=== PATIENT | female | born 1940 | race Hispanic/Latino ===

== ENCOUNTER 2018-02-16 16:44 | Emergency (ER) | payer OTHER ==
--- OUTSIDE RECORDS SUMMARY | 2018-02-16 16:46 | XMS REPORT ---
:1940 Author Organization [employer] Care Team Providers Name Role Phone Cooper, Na Provider Role Unavailable Allergies, Adverse Reactions, Alerts Substance Reaction Event Type penicillin Info Not Available Drug Allergy Ultram Info Not Available Drug Allergy Iodine Info Not Available Drug Allergy Celebrex Info Not Available Drug Allergy Amoxicillin Info Not Available Drug Allergy Problems Problem Type Condition Code Onset Dates Condition Status Problem Gastroesophageal reflux disease K21.9 Active Problem Osteoporosis, unspecified M81.0 Active osteoporosis type, unspecified pathological fracture presence Problem Other osteoporosis M81.8 Active Problem Need for assistance due to unsteady R26.89 Active gait Assessment Osteoporosis, unspecified M81.0 Active osteoporosis type, unspecified pathological fracture presence Problem Constipation K59.00 Active Assessment Rheumatoid arthritis involving M05.79 Active multiple sites with positive rheumatoid factor Assessment 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 Active Problem Unsteady gait R26.81 Active Problem Bilateral edema of lower extremity R60.0 Active Problem Rheumatoid arthritis involving M05.79 Active multiple sites with positive rheumatoid factor Problem Mild memory disturbance R41.3 Active Problem 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 Active Assessment HTN (hypertension) I10 Active Assessment Bilateral edema of lower extremity R60.0 Active Assessment Hypothyroidism E03.9 Active Problem Rheumatoid arthritis M06.9 Active Problem Obesity E66.9 Active Problem HTN (hypertension) I10 Active Problem Allergic rhinitis, seasonal J30.2 Active Assessment Need for assistance due to unsteady R26.89 Active gait Problem Hypothyroidism E03.9 Active Problem Vitamin B 12 deficiency E53.8 Active Medications Medication Code Code Instructions Start End Status Dosage System Date Date Walker Basket [facility] 55856496839 - daily Dec 05, Active as 2018 directed Anabella [place] [facility] 09323254459 20 MG Orally Active 1 tablet Maximum twice a day at bedtime Strength Atenolol [facility] 02761594528 25 MG Orally Active 1 tablet Once a day Metformin HCl [facility] 82295521309 500 MG Orally Active 1 tablet once a day with meals Shower Chair ND 0 n/s n/s daily Dec 05, Mar 07, Active n/s [address] [facility] 07465757096 1 MG Active TAKE 1 TABLET BY MOUTH EVERY DAY Methotrexate [facility] 59788162537 2.5 MG Active TAKE 6 TABLETS BY MOUTH ONCE A WEEK Rollator walker [facility] 0 n/s daily Dec 05, Active as [address] Acid [facility] 53066177020 1 MG Orally Active 1 tablet Once a day Fosamax [facility] 59279555644 70 MG Orally Inactive [address] [facility] 48521921255 10-320 MG Active 1 tablet Besylate-Valsar Orally Once a craft day Methotrexate [facility] 95956131977 2.5 MG Orally Active 6 tablets once a week Soniab claw [facility] [id number] PRN Dec 05, Active as [address] [facility] 36352712428 75 MCG Orally Active 1 tablet Once a day on an empty stomach in the morning Results No Known Results Summary Purpose [employer]ClinicalWorks Submission
--- OUTSIDE RECORDS SUMMARY | 2018-02-16 16:46 | XMS REPORT ---
[...] Condition Code Onset Dates Condition Status Problem Allergic rhinitis, seasonal J30.2 Active Problem Gastroesophageal reflux disease K21.9 Active Problem Vitamin B 12 deficiency E53.8 Active Problem Bilateral edema of lower extremity R60.0 Active Assessment Rheumatoid arthritis involving M05.79 Active multiple sites with positive rheumatoid factor Problem Mild memory disturbance R41.3 Active Assessment Mild memory disturbance R41.3 Active Problem Constipation K59.00 Active Problem Osteoporosis, unspecified M81.0 Active osteoporosis type, unspecified pathological fracture presence Problem Other osteoporosis M81.8 Active Problem 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 Active Problem Rheumatoid arthritis involving M05.79 Active multiple sites with positive rheumatoid factor Assessment Hypothyroidism E03.9 Active Assessment Bilateral edema of lower extremity R60.0 Active Assessment 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 Active Assessment Osteoporosis, unspecified M81.0 Active osteoporosis type, unspecified pathological fracture presence Problem HTN (hypertension) I10 Active Problem Hypothyroidism E03.9 Active Assessment HTN (hypertension) I10 Active Problem Rheumatoid arthritis M06.9 Active Problem Obesity E66.9 Active Medications Medication Code Code Instructions Start End Status Dosage System Date Date Folic Acid [facility] 94934631244 1 MG Active TAKE 1 TABLET BY MOUTH EVERY DAY Fosamax [facility] 24478915101 70 MG Orally Inactive 1 tablet Folic Acid [facility] 92606318495 1 MG Orally Active 1 tablet Once a day Methotrexate [facility] 69525164710 2.5 MG Orally Active 6 tablets once a week Pepcid AC [facility] 75044512246 20 MG Orally Active 1 tablet Maximum twice a day at bedtime Strength Amlodipine [facility] 04698590139 10-320 MG Active 1 tablet Besylate-Valsar Orally Once a craft day Atenolol [facility] 70402602283 25 MG Orally Active 1 tablet Once a day Metformin HCl [facility] 19620801234 500 MG Orally Active 1 tablet once a day with meals Synthroid [facility] 97584052312 75 MCG Orally Active 1 tablet Once a day on an empty stomach in the morning Results No Known Results Summary Purpose [employer]Works Submission
--- OUTSIDE RECORDS SUMMARY | 2018-02-16 16:46 | XMS REPORT ---
:1940 Author Organization [employer] Care Team Providers Name Role Phone Cooper, Na Provider Role Unavailable Allergies No Known Allergies Problems Problem Type Condition Code Onset Dates Condition Status Problem Gastroesophageal reflux disease K21.9 Active Problem Osteoporosis, unspecified M81.0 Active osteoporosis type, unspecified pathological fracture presence Problem Other osteoporosis M81.8 Active Problem Need for assistance due to unsteady R26.89 Active gait Problem Constipation K59.00 Active Problem Unsteady gait R26.81 Active Problem Bilateral edema of lower extremity R60.0 Active Problem Rheumatoid arthritis involving M05.79 Active multiple sites with positive rheumatoid factor Problem Mild memory disturbance R41.3 Active Problem 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
--- OUTSIDE RECORDS SUMMARY | 2018-02-16 16:47 | XMS REPORT ---
[...] 12 deficiency E53.8 Active Medications Medication Code System Code Instructions Start Date End Date Status Dosage Diflucan [facility] [id number] 150 MG Orally Jan 22, Jan 24, Active 1 tablet take one now and 2017 2017 repeat other in one week Results No Known Results Summary Purpose [employer]ClinicalWorks Submission
[2018-02-16 17:59] LABS: Urine Blood NEGATIVE (NEG); Urine Glucose NEGATIVE (NEG); Urine Protein NEGATIVE (NEG)
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
--- NOTE | 2018-02-16 18:35 | RAD REPORT ---
EXAM DESCRIPTION: RAD - Hip Right 2 View - 02/16/2018 5:42 pm CLINICAL HISTORY: Right hip pain FINDINGS: No fracture or dislocation is seen. Right hip arthroplasty performed. Prosthesis is in good position without evidence of loosening. Bones are osteoporotic
--- NOTE | 2018-02-16 18:36 | RAD REPORT ---
EXAM DESCRIPTION: RAD - Knee Right 3 View - 02/16/2018 5:42 pm CLINICAL HISTORY: Right knee pain status post fall FINDINGS: A right knee arthroplasty performed. No evidence of loosening of the prosthesis. Bones are osteoporotic. No fracture or dislocation seen
[2018-02-16] MEDS ORDERED: NA CHLORIDE 0.9% 1,000 ML ONE (18:37)
[2018-02-16] MEDS ORDERED: FENTANYL CITR 100 MCG/2 ML ONE (18:37)
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
--- NOTE | 2018-02-16 19:16 | RAD REPORT ---
EXAM DESCRIPTION: Sallie Single View02/16/2018 6:54 pm CLINICAL HISTORY: Chest pain COMPARISON: 2010 FINDINGS: The lungs appear clear of acute infiltrate. The heart is normal size IMPRESSION: No acute abnormalities displayed
[2018-02-16 19:18] LABS: Protime INR 1.07
[2018-02-16 19:19] LABS: Absolute Lymphocytes (CBC) 2.7 K/uL (0.7-4.9); Absolute Monocytes 0.6 K/uL (0.1-1.3); Absolute Neutrophil 4.9 K/uL (1.8-8.0); Eosinophils % 1.7 % (0-4.4); Hematocrit 37.1 % (36.0-45.0); Lymphocytes % 32.2 % (15.3-44.8); MCH 29.5 pg (27.0-35.0); MCV 89.2 fL (80-100); MPV 10.1 fL (7.6-11.3); Monocytes % 7.4 % (3.3-12.3); RBC Red Blood Cell Count 4.17 M/uL (3.86-4.86)
[2018-02-16 19:23] LABS: Potassium 3.9 mmol/L (3.5-5.1)
[2018-02-16 20:53] VITALS: BP 139/68; TEMP 98; O2SAT 100
== END 2018-02-16 20:12 | disposition short-term general hospital (02) ==
LOC: ER 16:44
DX: M54.2 Cervicalgia (principal); V49.40XA Driver injured in collision with unspecified motor vehicles in traffic accident, initial encounter; I10 Essential (primary) hypertension; Z88.0 Allergy status to penicillin
CPT/HCPCS: 36415; 70450; 71045; 72125; 73502; 73562; 80048; 81003; 81025; 85025; 85610; 85730; 86850; 86900; 86901; 96361; 96374; 99285; J3010; J7030

== ENCOUNTER 2019-10-06 13:59 | Emergency (ER) | payer OTHER ==
[2019-10-06 15:17] LABS: Absolute Lymphocytes (CBC) 1.6 K/uL (0.7-4.9); Basophils % 0.8 % (0-1.3); Hematocrit 38.1 % (36.0-45.0); Lymphocytes % 19.5 % (15.3-44.8); MPV 10.1 fL (7.6-11.3); RBC Red Blood Cell Count 4.16 M/uL (3.86-4.86)
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
--- OUTSIDE RECORDS SUMMARY | 2019-10-06 15:19 | XMS REPORT ---
:1940 Author Organization [employer] Care Team Providers Name Role Phone Cooper, Na Provider Role Unavailable Allergies No Known Allergies Problems Problem Type Condition Code Onset Dates Condition Statu s Problem Other osteoporosis M81.8 Active Problem Rheumatoid arthritis involving M05.79 Active multiple sites with positive rheumatoid factor Problem Osteoporosis, unspecified M81.0 Ac tive osteoporosis type, unspecified pathological fracture presence Problem Need for assistance due to unsteady R26.89 Active gait Problem Unsteady gait R26.81 Active Problem Herpes zoster without complication B02.9 Active Problem Mild memory disturbance R41.3 Acti ve Problem 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 Active Problem Constipation K59.00 Active Problem Bilateral edema of lower extremity R60.0 Active Problem HTN (hypertension) I10 Active Problem Obesity E66.9 Active Problem Allergic rhinitis, seasonal J30.2 Active Problem Hypothyroidism E03.9 Active Problem Vitamin B 12 deficiency E53.8 Acti ve Problem Rheumatoid arthritis M06.9 Active Problem Gastroesophageal reflux disease K21.9 Active Medications No Known Medications Results No Known Results Summary Purpose [employer] Submission
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
[2019-10-06 15:39] LABS: ALT/SGPT 16 U/L (12-78); AST/SGOT 20 U/L (15-37); Albumin 3.4 g/dL (3.4-5.0); Alkaline Phosphatase 103 U/L (45-117); BUN Blood Urea Nitrogen 8 mg/dL (7-18); Bicarbonate 20 mmol/L (21-32); Bilirubin Direct 0.2 mg/dL (0-0.2); Bilirubin Total 0.5 mg/dL (0.2-1.0); Glucose Level 107 mg/dL (74-106); Lipase 66 U/L (73-393); Magnesium 2.3 mg/dL (1.8-2.4); NT PRO-BNP 348 pg/mL (<450); Potassium 3.3 mmol/L (3.5-5.1); Protein, Total 8.2 g/dL (6.4-8.2); Sodium Level 140 mmol/L (136-145); Troponin (Emerg Dept Use Only) < 0.02 ng/mL (0.0-0.045)
[2019-10-06] MEDS ORDERED: PANTOPRAZOLE 40 MG INJ ONE (15:39)
[2019-10-06] MEDS ORDERED: NA CHLORIDE 0.9% 1,000 ML ONE (15:39)
--- NOTE | 2019-10-06 16:15 | RAD REPORT ---
EXAM DESCRIPTION: RAD - Chest Single View - 10/06/2019 4:04 pm CLINICAL HISTORY: ABDOMINAL DISTENTION COMPARISON: AP chest February 2018 TECHNIQUE: AP portable chest image was obtained 10/06/2019 4:04 pm . FINDINGS: Chronic interstitial lung disease is present similar to comparison. Heart and vasculature are normal. No measurable pleural effusion and no pneumothorax. Bilateral shoulder joint degenerative change present. No acute aortic findings suspected. IMPRESSION: No acute cardiopulmonary process. Chronic interstitial lung pattern matches comparison.
[2019-10-06 16:29] LABS: Urine Blood NEGATIVE (NEG); Urine Glucose NEGATIVE (NEG); Urine Protein NEGATIVE (NEG); Urine Specific Gravity 1.005 (1.005-1.030)
--- NOTE | 2019-10-06 16:41 | RAD REPORT ---
EXAM DESCRIPTION: CT - Abdomen Pelvis W Contrast - 10/06/2019 4:19 pm CLINICAL HISTORY: ABD PAIN COMPARISON: No comparisons TECHNIQUE: Biphasic, helical CT imaging of the abdomen and pelvis was performed following 100 ml non -ionic IV contrast. Oral contrast was given. All CT scans are performed using dose optimization technique as appropriate and may include automated exposure control or mA/KV adjustment according to patient size. FINDINGS: No suspicious findings in the lung bases. The liver, spleen, and pancreas show no suspicious focal findings. Liver shows borderline to mild fat ty infiltration. Gallbladder and biliary tree are also without suspicious finding. Symmetric renal function is seen with no hydronephrosis or suspicious renal mass. No pyelonephritis o r acute parenchymal process. Bladder and pelvic floor or obscured by the dense bilateral hip prosthes is spray artifact. No adrenal abnormalities. No dilated bowel loops or bowel wall thickening. Distal rectum and bowel loops near the floor the pel vis are obscured by the prosthesis artifact No free air, free fluid or inflammatory stranding. No he rnia, mass or bulky lymphadenopathy. No suspicious bony findings. IMPRESSION: No bowel obstruction, free air or emergent CT abdomen and pelvis finding. Mild colitis or inflammatory bowel changes are possible. The rectum and bowel loops along the floor t he pelvis are obscured by the bilateral hip prosthesis spray artifact.
--- NOTE | 2019-10-06 16:47 | ER ---
Nurse's Notes [facility] Name: Pretty Crook Age: 79 yrs Sex: Female : 1940 Arrival Date: 10/06/2019 Time: 14:[address] Private MD: Anne Cooper Diagnosis: Abdominal tenderness;Gastrointestinal hemorrhage, unspecified-upper / stable;Hypokalemia Presentation: 10/05 14:10 Chief complaint: Patient states: black tarry stools, nausea, diarrhea, lower abd sv soreness, chills started yesterday. Stated a few days ago she was prescribed abx from her PCP. Coronavirus screen: Patient denies a cough. Patient denies shortness of breath or difficulty breathing. Patient reports a measured and/or subjective temperature greater than 100.4F. Patient denies travel on a cruise ship or to a country the [facility] currently lists as an affected area. Patient denies contact with known and/or suspected case of COVID-19. Ebola Screen: No symptoms or risks identified at this time. Risk Assessment: Do you want to hurt yourself or someone else? Patient reports no desire to harm self or others. Onset of symptoms was September 2019. 14:10 Method Of Arrival: Wheelchair sv 14:10 Acuity: DUSTIN 3 sv 14:12 Initial Sepsis Screen: Does the patient meet any 2 criteria? No. Patient's initial sv sepsis screen is negative. Does the patient have a suspected source of infection? No. Patient's initial sepsis screen is negative. Triage Assessment: 14:14 General: Appears in no apparent distress. comfortable, Behavior is calm, cooperative, sv appropriate for age. Pain: Complains of pain in abdomen Quality of pain is described as sore. Neuro: Level of Consciousness is awake, alert, obeys commands, Oriented to person, place, time, situation. Respiratory: Respiratory effort is even, unlabored. GI: Reports lower abdominal pain, upper abdominal pain, diarrhea, nausea. Historical: - Allergies: 14:12 PENICILLINS; sv - Home Meds: 14:32 levothyroxine 75 mcg tab 1 tab once daily [Active]; atenolol 25 mg Oral tab 1 tab once vc daily [Active]; methotrexate sodium 2.5 mg Oral tab 6 tab once wkly [Active]; Vitamin D 50 mcg Oral 50,000 unit [Active]; folic acid 1 mg Oral tab 1 tab once daily [Active]; Vitamin B-12 1,000 mcg Oral tab [Active]; metronidazole 500 mg Oral tab 1 tab 2 times per day [Active]; 14:37 Cipro 500 mg Oral tab 1 tab every 12 hours [Active]; vc - PMHx: 14:12 Hypertension; RA; sv - PSHx: 14:12 Appendectomy; Hysterectomy; will knees; elbow; hip; sv - Immunization history:: Flu vaccine is up to date. - Social history:: Smoking status: Patient denies any tobacco usage or history of. - Family history:: not pertinent. Screenin:30 Abuse screen: Denies threats or abuse. Nutritional screening: No deficits noted. vc Tuberculosis screening: No symptoms or risk factors identified. Fall Risk None identified. Assessment: 14:30 General: Appears in no apparent distress. uncomfortable. Pain: Complains of pain in vc left lower quadrant Pain does not radiate. Pain currently is 4 out of 10 on a pain scale. Quality of pain is described as crampy. 14:30 Neuro: Level of Consciousness is awake, alert, obeys commands, Oriented to person, vc place, time, situation, Appropriate for age. Cardiovascular: Capillary refill < 3 seconds Patient's skin is warm and dry. Respiratory: Airway is patent Respiratory effort is even, unlabored, Respiratory pattern is regular, symmetrical. GI: Abdomen is flat, non-distended, Reports lower abdominal pain, diarrhea, Patient currently denies vomiting. : No signs and/or symptoms were reported regarding the genitourinary system. Derm: No signs and/or symptoms reported regarding the dermatologic system. 15:30 Reassessment: Patient appears in no apparent distress at this time. Patient and/or vc family updated on plan of care and expected duration. Pain level reassessed. Patient is alert, oriented x 3, equal unlabored respirations, skin warm/dry/pink. 16:30 Reassessment: Patient appears in no apparent distress at this time. Patient and/or vc family updated on plan of care and expected duration. Pain level reassessed. Patient is alert, oriented x 3, equal unlabored respirations, skin warm/dry/pink. 17:24 Reassessment: Patient appears in no apparent distress at this time. Patient and/or vc family updated on plan of care and expected duration. Pain level reassessed. Patient is alert, oriented x 3, equal unlabored respirations, skin warm/dry/pink. Vital Signs: 14:12 BP 133 / 61; Pulse 89; Resp 20; Temp 99.6(TE); Pulse Ox 98% ; Weight 80.74 kg; Height 5 sv ft. 3 in. (160.02 cm); 16:30 BP 139 / 57; Pulse 64; Resp 15; Pulse Ox 100% on R/A; vc 17:00 BP 131 / 59; Pulse 69; Resp 14; Pulse Ox 100% on R/A; vc 14:12 Body Mass Index 31.53 (80.74 kg, 160.02 cm) sv ED Course: 14:03 Patient arrived in ED. mr 14:03 Anne Cooper MD is Private Physician. mr 14:10 Arm band placed on. sv 14:12 Triage completed. sv 14:20 Olivier Russ MD is Attending Physician. crow 14:27 Princess Mathews RN is Primary Nurse. vc 14:30 Patient has correct armband on for positive identification. Placed in gown. Bed in low vc position. Call light in reach. Side rails up X2. recruitment coordinator on. Pulse ox on. NIBP on. 15:00 T\T\S collected, blood band applied to patient. Inserted saline lock: 20 gauge in right sv antecubital area, using aseptic technique. Blood collected. Flushed right antecubital with 5 ml normal saline. 15:30 EKG done, by electromechanical assembly technician. reviewed by Olivier Russ MD. at1 16:05 XRAY Chest (1 view) In Process Unspecified. EDMS 16:19 CT Abd/Pelvis - IV Contrast Only In Process Unspecified. EDMS 16:45 Anne Cooper MD is Referral Physician. crow 16:45 Galilea Monteiro MD is Referral Physician. crow 17:25 No provider procedures requiring assistance completed. IV discontinued, intact, vc bleeding controlled, No redness/swelling at site. Pressure dressing applied. Administered Medications: 15:35 Drug: NS 0.9% 1000 ml Route: IV; Rate: 125 ml/hr; Site: right antecubital; sv 17:03 Follow up: IV Status: Completed infusion; IV Intake: 300ml vc 15:35 Drug: ProTONIX 40 mg Route: IVP; Site: right antecubital; sv 17:03 Follow up: Response: No adverse reaction vc 17:03 Drug: Potassium Effervescent Tablet 25 mEq Route: PO; vc 17:29 Follow up: Response: No adverse reaction vc Intake: 17:03 IV: 300ml; Total: 300ml. vc Outcome: 16:46 Discharge ordered by . crow 17:26 Condition: good vc 17:26 Discharge instructions given to patient, Instructed on discharge instructions, follow up and referral plans. medication usage, Demonstrated understanding of instructions, follow-up care, medications. 17:26 Discharge instructions given to patient, Instructed on discharge instructions, follow up and referral plans. medication usage, Demonstrated understanding of instructions, follow-up care, medications, Prescriptions given X 4. 17:28 Discharged to home ambulatory. vc 17:29 Patient left the ED. vc Signatures: Dispatcher [employer] EDDeloris Burkett RN RN sv Anderson, Corey, MD MD cha Rivera, Mimi mr De Santiago, Sharmila, career coach EKG Tat1 Princess Mathews RN RN vc Corrections: (The following items were deleted from the chart) 14:12 14:10 Chief complaint: Patient states: black tarry stools, nausea, lower abd soreness, sv chills started yesterday. Stated a few days ago she was prescribed abx from her PCP. sv 14:16 14:12 Pulse 89bpm; Resp 20bpm; Pulse Ox 98%; Temp 99.6F Temporal; 80.74 kg; Height 5 sv ft. 3 in.; BMI: 31.5; sv
--- NOTE | 2019-10-06 16:47 | EDPHYS ---
Physician Documentation [facility] Name: Pretty Crook Age: 79 yrs Sex: Female : 1940 Arrival Date: 10/06/2019 Time: 14:[address] Private MD: Anne Cooper ED Physician Olivier Russ HPI: 10/05 14:57 This 79 yrs old Female presents to ER via Wheelchair with complaints of crow Black/Tarry Stools. 14:57 The patient presents with abdominal pain in the lower abdomen, abdominal distention in crow the upper abdomen, in the lower abdomen. Onset: The symptoms/episode began/occurred 3 day(s) ago. The patient presents to the emergency department with rectal bleeding, dark red blood with bowel movement melena. Onset: The symptoms/episode began/occurred 2 day(s) ago. Abdominal pain: located in the right lower quadrant and left lower quadrant. Modifying factors: The symptoms are alleviated by nothing, the symptoms are aggravated by nothing. Associated signs and symptoms: The patient has no apparent associated signs or symptoms. The symptoms do not radiate. The symptoms are described as crampy. Modifying factors: The symptoms are alleviated by nothing, the symptoms are aggravated by nothing. Historical: - Allergies: 14:12 PENICILLINS; sv - Home Meds: 14:32 levothyroxine 75 mcg tab 1 tab once daily [Active]; atenolol 25 mg Oral tab 1 tab once vc daily [Active]; methotrexate sodium 2.5 mg Oral tab 6 tab once wkly [Active]; Vitamin D 50 mcg Oral 50,000 unit [Active]; folic acid 1 mg Oral tab 1 tab once daily [Active]; Vitamin B-12 1,000 mcg Oral tab [Active]; metronidazole 500 mg Oral tab 1 tab 2 times per day [Active]; 14:37 Cipro 500 mg Oral tab 1 tab every 12 hours [Active]; vc - PMHx: 14:12 Hypertension; RA; sv - PSHx: 14:12 Appendectomy; Hysterectomy; will knees; elbow; hip; sv - Immunization history:: Flu vaccine is up to date. - Social history:: Smoking status: Patient denies any tobacco usage or history of. - Family history:: not pertinent. ROS: 14:57 Constitutional: Negative for fever, chills, and weight loss, Eyes: Negative for injury, crow pain, redness, and discharge, ENT: Negative for injury, pain, and discharge, Neck: Negative for injury, pain, and swelling, Cardiovascular: Negative for chest pain, palpitations, and edema, Respiratory: Negative for shortness of breath, cough, wheezing, and pleuritic chest pain, Back: Negative for injury and pain, : Negative for injury, bleeding, discharge, and swelling, MS/Extremity: Negative for injury and deformity, Skin: Negative for injury, rash, and discoloration, Neuro: Negative for headache, weakness, numbness, tingling, and seizure, Psych: Negative for depression, anxiety, suicide ideation, homicidal ideation, and hallucinations, Allergy/Immunology: Negative for hives, rash, and allergies, Endocrine: Negative for neck swelling, polydipsia, polyuria, polyphagia, and marked weight changes, Hematologic/Lymphatic: Negative for swollen nodes, abnormal bleeding, and unusual bruising. 14:57 Abdomen/GI: Positive for abdominal pain, of the right lower quadrant and left lower quadrant. Exam: 14:57 Constitutional: This is a well developed, well nourished patient who is awake, alert, crow and in no acute distress. Head/Face: Normocephalic, atraumatic. Eyes: Pupils equal round and reactive to light, extra-ocular motions intact. Lids and lashes normal. Conjunctiva and sclera are non-icteric and not injected. Cornea within normal limits. Periorbital areas with no swelling, redness, or edema. ENT: Nares patent. No nasal discharge, no septal abnormalities noted. Tympanic membranes are normal and external auditory canals are clear. Oropharynx with no redness, swelling, or masses, exudates, or evidence of obstruction, uvula midline. Mucous membranes moist. Neck: Trachea midline, no thyromegaly or masses palpated, and no cervical lymphadenopathy. Supple, full range of motion without nuchal rigidity, or vertebral point tenderness. No Meningismus. Chest/axilla: Normal chest wall appearance and motion. Nontender with no deformity. No lesions are appreciated. Cardiovascular: Regular rate and rhythm with a normal S1 and S2. No gallops, murmurs, or rubs. Normal PMI, no JVD. No pulse deficits. Respiratory: Lungs have equal breath sounds bilaterally, clear to auscultation and percussion. No rales, rhonchi or wheezes noted. No increased work of breathing, no retractions or nasal flaring. Back: No spinal tenderness. No costovertebral tenderness. Full range of motion. Female : Normal external genitalia. Skin: Warm, dry with normal turgor. Normal color with no rashes, no lesions, and no evidence of cellulitis. MS/ Extremity: Pulses equal, no cyanosis. Neurovascular intact. Full, normal range of motion. Neuro: Awake and alert, GCS 15, oriented to person, place, time, and situation. Cranial nerves II-XII grossly intact. Motor strength 5/5 in all extremities. Sensory grossly intact. Cerebellar exam normal. Normal gait. Psych: Awake, alert, with orientation to person, place and time. Behavior, mood, and affect are within normal limits. 14:57 Abdomen/GI: Inspection: distension, Bowel sounds: normal, Palpation: abdomen is soft and non-tender, Rectal exam: rectal tone normal, Stool: guaiac positive, trace positive, Liver: no appreciated palpable abnormalities, Hernia: not appreciated. 15:43 ECG was reviewed by the Attending Physician. [facility] Vital Signs: 14:12 BP 133 / 61; Pulse 89; Resp 20; Temp 99.6(TE); Pulse Ox 98% ; Weight 80.74 kg; Height 5 sv ft. 3 in. (160.02 cm); 16:30 BP 139 / 57; Pulse 64; Resp 15; Pulse Ox 100% on R/A; vc 17:00 BP 131 / 59; Pulse 69; Resp 14; Pulse Ox 100% on R/A; vc 14:12 Body Mass Index 31.53 (80.74 kg, 160.02 cm) sv MDM: 14:20 Patient medically screened. crow 14:59 Differential diagnosis: gastritis, diverticulitis, bowel obstruction, GI Bleed, crow non-specific abd pain, pancreatitis, Peptic Ulcer Disease, Perf. Duodenal Ulcer, Perf. Gastric Ulcer, urinary tract infection. 15:00 Data reviewed: vital signs, nurses notes, lab test result(s), EKG, radiologic studies, [facility] CT scan, plain films. Data interpreted: surveillance system monitor: rate is 89 beats/min, rhythm is normal sinus rhythm, Pulse oximetry: on room air is 89 %. Test interpretation: by ED physician or midlevel provider: ECG, plain radiologic studies. Counseling: I had a detailed discussion with the patient and/or guardian regarding: the historical points, exam findings, and any diagnostic results supporting the discharge/admit diagnosis, lab results, radiology results. 16:48 ED course: ct abd/pel neg, cont cipro/flagyl, protonix and zofran perscribed. [facility] 10/05 14:54 Order name: Basic Metabolic Panel; Complete Time: 16:07 [facility] 10/05 14:54 Order name: CBC with Diff; Complete Time: 16:07 [facility] 10/05 14:54 Order name: LFT's; Complete Time: 16:07 [facility] 10/05 14:54 Order name: Magnesium; Complete Time: 16: [facility] 10/05 14:54 Order name: NT PRO-BNP; Complete Time: 16: [facility] 10/05 14:54 Order name: Troponin (emerg Dept Use Only); Complete Time: 16:07 [facility] 10/05 14:54 Order name: XRAY Chest (1 view); Complete Time: 16:56 [facility] 10/05 14:54 Order name: Lipase; Complete Time: 16: [facility] 10/05 14:54 Order name: Type And Screen; Complete Time: 16:56 [facility] 10/05 14:54 Order name: CT Abd/Pelvis - IV Contrast Only; Complete Time: 16:56 [facility] 10/05 16:18 Order name: Urine Dipstick--Ancillary (enter results); Complete Time: 16:56 10/05 14:54 Order name: EKG; Complete Time: 14:55 [facility] 10/05 14:54 Order name: Cardiac monitoring; Complete Time: 16:01 [facility] 10/05 14:54 Order name: EKG - Nurse/Tech; Complete Time: 15:10 [facility] 10/05 14:54 Order name: IV Saline Lock; Complete Time: 15:10 [facility] 10/05 14:54 Order name: Labs collected and sent; Complete Time: 15:10 [facility] 10/05 14:54 Order name: O2 Per Protocol; Complete Time: 15:10 [facility] 10/05 14:54 Order name: O2 Sat Monitoring; Complete Time: 15:10 [facility] 10/05 14:54 Order name: Urine Dipstick-Ancillary (obtain specimen); Complete Time: 16:54 [facility] EC:43 Rate is 70 beats/min. Rhythm is regular. QRS [place] is Normal. LA interval is normal. QRS crow interval is normal. QT interval is normal. No Q waves. T waves are Normal. No ST changes noted. Clinical impression: Normal ECG and No evidence of ischemia. Interpreted by me. Reviewed by me. Administered Medications: 15:35 Drug: NS 0.9% 1000 ml Route: IV; Rate: 125 ml/hr; Site: right antecubital; sv 17:03 Follow up: IV Status: Completed infusion; IV Intake: 300ml vc 15:35 Drug: ProTONIX 40 mg Route: IVP; Site: right antecubital; sv 17:03 Follow up: Response: No adverse reaction vc 17:03 Drug: Potassium Effervescent Tablet 25 mEq Route: PO; vc 17:29 Follow up: Response: No adverse reaction vc Disposition: 10/06/19 16:46 Discharged to Home. Impression: Abdominal tenderness, Gastrointestinal hemorrhage, unspecified - upper / stable, Hypokalemia. - Condition is Stable. - Discharge Instructions: Abdominal Pain, Adult, Potassium Content of Foods, Gastrointestinal Bleeding, Nausea and Vomiting, Adult, Abdominal Pain, Adult, [id number], Gastrointestinal Bleeding, [id number], Hypokalemia. - Prescriptions for Flagyl 500 mg Oral Tablet - take 1 tablet by ORAL route every 12 hours for 7 days; 14 tablet. Protonix 40 mg Oral Tablet - take 1 tablet by ORAL route once daily; 30 tablet. Zofran 4 mg Oral Tablet - take 1 tablet by ORAL route every 12 hours As needed; 20 tablet. Cipro 500 mg Oral Tablet - take 1 tablet by ORAL route every 12 hours for 7 days; 14 tablet. - Medication Reconciliation Form, Thank You Letter, Antibiotic Education, Prescription Opioid Use form. - Follow up: Anne Cooper MD; When: 2 - 3 days; Reason: Recheck today's complaints, Continuance of care, Re-evaluation by your physician. Follow up: Galilea Monteiro MD; When: 2 - 3 days; Reason: Recheck today's complaints, Re-evaluation by your physician. - Problem is new. - Symptoms have improved. Signatures: Dispatcher [employer] EDDeloris Burkett RN RN sv Anderson, Corey, MD MD cha Calcote, Vanessa, RN RN vc Corrections: (The following items were deleted from the chart) 17:29 16:46 10/06/2019 16:46 Discharged to Home. Impression: Abdominal tenderness; vc Gastrointestinal hemorrhage, unspecified - upper / stable; Hypokalemia. Condition is Stable. Forms are Medication Reconciliation Form, Thank You Letter, Antibiotic Education, Prescription Opioid Use. Follow up: Anne Cooper; When: 2 - 3 days; Reason: Recheck today's complaints, Continuance of care, Re-evaluation by your physician. Follow up: Galilea Monteiro; When: 2 - 3 days; Reason: Recheck today's complaints, Re-evaluation by your physician. Problem is new. Symptoms have improved. crow
[2019-10-06] MEDS ORDERED: POTASSIUM 25 MEQ EFFERV TAB ONE (17:07)
[2019-10-06 17:36] VITALS: TEMP 99.6
[2019-10-06 17:37] VITALS: O2SAT 100
[2019-10-06 17:38] VITALS: BP 131/59
== END 2019-10-06 17:29 | disposition home or self-care (01) ==
LOC: ER 13:59
DX: K92.2 Gastrointestinal hemorrhage, unspecified (principal); E87.6 Hypokalemia; I10 Essential (primary) hypertension; Z88.0 Allergy status to penicillin
CPT/HCPCS: 96361; 93005; 85025; 80048; 36415; 86900; 83735; 86850; 86901; 80076; 81003; 84484; 83690; 83880; 74177; 71045; 96374; 99284; Q9967; C9113; J7030

== ENCOUNTER 2019-12-06 14:04 | Emergency (ER) | payer OTHER ==
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
--- OUTSIDE RECORDS SUMMARY | 2019-12-06 14:08 | XMS REPORT ---
[...] Condition Code Onset Dates Condition Statu s Assessment Elevated TSH R79.89 Active Assessment Bilateral edema of lower extremity R60.0 Active Problem Vitamin B 12 deficiency E53.8 Acti ve Assessment Skin yeast infection B37.2 Active Problem Gastroesophageal reflux disease K21.9 Active Assessment Osteoporosis, unspecified M81.0 Ac tive osteoporosis type, unspecified pathological fracture presence Problem Other osteoporosis M81.8 Active Problem Rheumatoid arthritis involving M05.79 Active multiple sites with positive rheumatoid factor Problem Osteoporosis, unspecified M81.0 Ac tive osteoporosis type, unspecified pathological fracture presence Problem Need for assistance due to unsteady R26.89 Active gait Problem Unsteady gait R26.81 Active Assessment HTN (hypertension) I10 Active Assessment Hypothyroidism E03.9 Active Problem Herpes zoster without complication B02.9 Active Assessment Rheumatoid arthritis involving M05.79 Active multiple sites with positive rheumatoid factor Problem Mild memory disturbance R41.3 Acti ve Problem 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 Active Problem Constipation K59.00 Active Problem Bilateral edema of lower extremity R60.0 Active Problem HTN (hypertension) I10 Active Assessment Yeast infection of the skin B37.2 Active Assessment Diverticulitis K57.92 Active Problem Obesity E66.9 Active Problem Allergic rhinitis, seasonal J30.2 Active Problem Hypothyroidism E03.9 Active Problem Rheumatoid arthritis M06.9 Active Medications Medication Code Code Instructions Start End Status Dosage System Date Date Pepcid AC [facility] 72258526288 20 MG Orally Active 1 tab let at Maximum Strength twice a day bed time Amlodipine [facility] 55180077976 10-320 MG Active 1 table t Besylate-Valsart Orally Once a an day Amlodipine [facility] 08423579135 10-320 MG Active 1 table t Besylate-Valsart Orally Once a an day Fluconazole ND 09804371973 150 MG Orally 1 September Active 1 tablet dose today, august 31, repeat dose in 2019 2019 1 week Methotrexate [facility] 44709505848 2.5 MG Orally Active 6 tablets once a week Metronidazole ND 32526860778 500 MG Orally Active 1 tablet Twice a day Atenolol ND 17364671820 25 MG Orally Active 1 tabl et Once a day Nystatin [facility] 35647526106 655192 UNIT/GM September Active 1 ap plication Externally , to affected Twice a day 2019 2019 area Methotrexate [facility] 35763286049 2.5 MG Orally Active 6 tablets once a week Atenolol [facility] 06489820489 25 MG Orally Active 1 tabl et Once a day Triamcinolone [facility] 75322750753 0.1 % Active 1 appl ication Acetonide Externally to affected Twice a day area Folic Acid [facility] 75935497338 1 MG Orally Active 1 tab let Once a day Synthroid [facility] 36283880149 75 MCG Orally Active 1 ta blet on Once a day an empty stomach in the morning Cipro [facility] 93386786064 500 MG Orally Active 1 tabl et every 12 hrs Results No Known Results Summary Purpose eClinicalWorks Submission
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
--- OUTSIDE RECORDS SUMMARY | 2019-12-06 14:09 | XMS REPORT ---
[...] due to unsteady R26.89 Active gait Assessment Rheumatoid arthritis involving M05.79 Active multiple sites with positive rheumatoid factor Problem Unsteady gait R26.81 Active Assessment Osteoporosis, unspecified M81.0 Ac tive osteoporosis type, unspecified pathological fracture presence Assessment Bilateral edema of lower extremity R60.0 Active Problem Herpes zoster without complication B02.9 Active Problem Mild memory disturbance R41.3 Acti ve Problem 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 Active Problem Constipation K59.00 Active Problem Bilateral edema of lower extremity R60.0 Active Problem HTN (hypertension) I10 Active Assessment Hypothyroidism E03.9 Active Assessment HTN (hypertension) I10 Active Problem Obesity E66.9 Active Problem Allergic rhinitis, seasonal J30.2 Active Assessment Hypokalemia E87.6 Active Problem Hypothyroidism E03.9 Active Problem Vitamin B 12 deficiency E53.8 Acti ve Assessment Elevated TSH R79.89 Active Problem Rheumatoid arthritis M06.9 Active Problem Gastroesophageal reflux disease K21.9 Active Medications Medication Code Code Instructions Start End Status Dosage System Date Date Amlodipine [facility] 33064211042 10-320 MG Active 1 table t Besylate-Valsart Orally Once a an day Metronidazole [facility] 95709808025 500 MG Orally Active 1 tablet Twice a day Zofran [facility] [address]-20 4 MG Orally p Active 1 ta blet o Q 12 prn Cipro [facility] 29667467082 500 MG Orally Active 1 tabl et every 12 hrs Atenolol [facility] 10537558476 25 MG Orally Active 1 tabl et Once a day Pepcid AC [facility] 81318057654 20 MG Orally Active 1 tab let at Maximum Strength twice a day bed time Triamcinolone [facility] 93778904305 0.1 % Active 1 appl ication Acetonide Externally to affected Twice a day area Folic Acid [facility] 62978070130 1 MG Orally Active 1 tab let Once a day Atenolol [facility] 20666115368 25 MG Orally Active 1 tabl et Once a day Amlodipine [facility] 58320736559 10-320 MG Active 1 table t Besylate-Valsart Orally Once a an day Pantoprazole [facility] 04328081696 40 MG Orally Active 1 tablet Sodium Once a day Nystatin [facility] 54297302761 797420 UNIT/GM Active 1 ap plication Externally to affected Twice a day area Synthroid [facility] 72146073788 75 MCG Orally Active 1 ta blet on Once a day an empty stomach in the morning Methotrexate [facility] 96352506472 2.5 MG Orally Active 6 tablets once a week Methotrexate [facility] 83697223367 2.5 MG Orally Active 6 tablets once a week Results No Known Results Summary Purpose eClinicalWorks Submission
[2019-12-06] MEDS ORDERED: AZITHROMYCIN 250 MG TAB ONE (15:37)
[2019-12-06] MEDS ORDERED: ACETAMINOPHEN 325 MG TABLET ONE (15:38)
[2019-12-06 15:42] LABS: Basophils % 0.6 % (0-1.3); Hematocrit 34.6 % (36.0-45.0); Lymphocytes % 11.7 % (15.3-44.8); MPV 10.1 fL (7.6-11.3)
[2019-12-06 15:46] LABS: Albumin 3.1 g/dL (3.4-5.0); Bilirubin Total 0.6 mg/dL (0.2-1.0); Potassium 3.8 mmol/L (3.5-5.1); Protein, Total 8.4 g/dL (6.4-8.2)
[2019-12-06 15:49] LABS: Urine Blood TRACE (NEG); Urine Glucose NEGATIVE (NEG); Urine Protein 1+ (NEG)
--- NOTE | 2019-12-06 15:56 | RAD REPORT ---
EXAM DESCRIPTION: RAD - Chest Single View - 12/06/2019 2:55 pm CLINICAL HISTORY: CONGESTION, fever, chills COMPARISON: Portable October 05 TECHNIQUE: AP portable chest image was obtained 12/06/2019 2:55 pm . FINDINGS: No focal mass or consolidation. Prominent interstitial pattern is present matching compari son. Mediastinal and hilar regions are similar to comparison. Heart and vasculature are normal. No me asurable pleural effusion and no pneumothorax. No acute bony abnormality seen. No acute aortic findin gs suspected. IMPRESSION: Chronic interstitial lung pattern similar to comparison. No acute findings seen.
--- NOTE | 2019-12-06 16:11 | EDPHYS ---
Physician Documentation [facility] Name: Pretty Crook Age: 79 yrs Sex: Female : 1940 Arrival Date: 12/06/2019 Time: 14:09 Bed 20 Private MD: ED Physician Carlene Flanagan HPI: 12/05 14:39 This 79 yrs old Female presents to ER via Ambulatory with complaints of Fever. ma2 14:39 The patient reports fever, that was measured at 101 degrees Fahrenheit. Onset: The ma2 symptoms/episode began/occurred gradually, 2 day(s) ago. Associated signs and symptoms: Pertinent negatives: abdominal pain, arthralgias, chest pain, chills, diarrhea, night sweats, runny nose, skin rash. Severity of symptoms: At their worst the symptoms were mild in the emergency department the symptoms are unchanged. The patient has not experienced similar symptoms in the past. na. Historical: - Allergies: 14:27 PENICILLINS; ss - PMHx: 14:27 Hypertension; RA; ss - PSHx: 14:27 Appendectomy; will knees; Hysterectomy; elbow; hip; ss - Immunization history:: Adult Immunizations up to date. - Social history:: Smoking status: Patient denies any tobacco usage or history of. Patient/guardian denies using alcohol, street drugs, The patient lives with family. - Family history:: not pertinent. ROS: 14:39 Constitutional: Negative for fever, chills, and weight loss. ma2 14:39 All other systems are negative. Exam: 14:39 Constitutional: This is a well developed, well nourished patient who is awake, alert, ma2 and in no acute distress. Head/Face: Normocephalic, atraumatic. Eyes: Pupils equal round and reactive to light, extra-ocular motions intact. Lids and lashes normal. Conjunctiva and sclera are non-icteric and not injected. Cornea within normal limits. Periorbital areas with no swelling, redness, or edema. ENT: tonsellitis bilateral uvula medline, no puss or abscess.. Nares patent. No nasal discharge, no septal abnormalities noted. Tympanic membranes are normal and external auditory canals are clear. , or masses, exudates, or evidence of obstruction, uvula midline. Mucous membranes moist. Neck: Trachea midline, no thyromegaly or masses palpated, and no cervical lymphadenopathy. Supple, full range of motion without nuchal rigidity, or vertebral point tenderness. No Meningismus. Chest/axilla: Normal chest wall appearance and motion. Nontender with no deformity. No lesions are appreciated. Cardiovascular: Regular rate and rhythm with a normal S1 and S2. No gallops, murmurs, or rubs. Normal PMI, no JVD. No pulse deficits. Respiratory: Lungs have equal breath sounds bilaterally, clear to auscultation and percussion. No rales, rhonchi or wheezes noted. No increased work of breathing, no retractions or nasal flaring. Abdomen/GI: Soft, non-tender, with normal bowel sounds. No distension or tympany. No guarding or rebound. No evidence of tenderness throughout. Back: No spinal tenderness. No costovertebral tenderness. Full range of motion. Skin: Warm, dry with normal turgor. Normal color with no rashes, no lesions, and no evidence of cellulitis. MS/ Extremity: Pulses equal, no cyanosis. Neurovascular intact. Full, normal range of motion. Neuro: Awake and alert, GCS 15, oriented to person, place, time, and situation. Cranial nerves II-XII grossly intact. Motor strength 5/5 in all extremities. Sensory grossly intact. Cerebellar exam normal. Normal gait. Vital Signs: 14:24 BP 171 / 70; Pulse 111; Resp 18; Temp 100.7(O); Pulse Ox 99% on R/A; Weight 77.11 kg; ss Height 5 ft. 3 in. (160.02 cm); Pain 0/10; 15:18 BP 117 / 51; Pulse 97; Resp 18; Pulse Ox 96% on R/A; em 16:52 BP 120 / 50; Pulse 86; Resp 18; Temp 99.1(O); Pulse Ox 99% on R/A; em 14:24 Body Mass Index 30.11 (77.11 kg, 160.02 cm) ss MDM: 14:16 Patient medically screened. ma2 14:39 Differential diagnosis: viral Infection, bacterial infection, URI, bronchitis, UTI. [facility] 16[facility]10 Data reviewed: vital signs, nurses notes. Counseling: I had a detailed discussion with ma2 the patient and/or guardian regarding: the historical points, exam findings, and any diagnostic results supporting the discharge/admit diagnosis, the presence of at least one elevated blood pressure reading (>120/80) during this emergency department visit. Response to treatment: the patient's symptoms have markedly improved after treatment. 12/05 14:38 Order name: Strep; Complete Time: 15:52 [facility] 12[facility] 14:38 Order name: Flu; Complete Time: 16:10 [facility] 12/05 14:38 Order name: CBC with Diff; Complete Time: 16:10 [facility] 12/05 14:38 Order name: CMP; Complete Time: 15:52 [facility] 12/05 14:38 Order name: COVID-19 [facility] 12/05 15:40 Order name: Urine Dipstick--Ancillary (enter results); Complete Time: 15:52 12/05 14:38 Order name: Urine Dipstick-Ancillary (obtain specimen); Complete Time: 15:33 [facility] 12/05 14:38 Order name: Chest Single View XRAY; Complete Time: 16:10 [facility] 12/05 14:38 Order name: Droplet/Contact Precautions; Complete Time: 14:38 [facility] 12/05 14:38 Order name: Labs collected and sent; Complete Time: 15:33 [facility] 12/05 15:44 Order name: Throat Culture EDMS Administered Medications: 15:40 Drug: Acetaminophen 650 mg Route: PO; em 16:52 Follow up: Response: No adverse reaction; Temperature is decreased em 15:40 Drug: AZITHromycin 500 mg Route: PO; em 16:52 Follow up: Response: No adverse reaction em Disposition: 12/06/19 16:11 Discharged to Home. Impression: Acute upper respiratory infection, unspecified. - Condition is Stable. - Discharge Instructions: Upper Respiratory Infection, Adult. - Prescriptions for Zithromax Z- Robby 250 mg Oral Tablet - take 1 tablet by ORAL route as directed for 5 days Day 1 - take two (2) tablets one time. Day 2, 3, 4 , 5 take one (1) tablet once daily.; 6 tablet. Medrol (Robby) 4 mg Oral Tablets, Dose Pack - take 1 tablet by ORAL route as directed - follow package instructions; 1 packet. - Medication Reconciliation Form, Thank You Letter, Antibiotic Education, Prescription Opioid Use form. - Follow up: Private Physician; When: Tomorrow; Reason: Continuance of care. Signatures: Dispatcher [employer] Canelo Borrero RN RN em Smirch, Shelby, RN RN ss Alzahri, Mohammad, MD MD ma2 Corrections: (The following items were deleted from the chart) 16:54 16:11 12/06/2019 16:11 Discharged to Home. Impression: Acute upper respiratory em infection, unspecified. Condition is Stable. Prescriptions for Zithromax Z-Robby 250 mg Oral Tablet - take 1 tablet by ORAL route as directed for 5 days Day 1 - take two (2) tablets one time. Day 2, 3, 4 , 5 take one (1) tablet once daily.; 6 tablet, Medrol (Robby) 4 mg Oral Tablets, Dose Pack - take 1 tablet by ORAL route as directed - follow package instructions; 1 packet. and Forms are Medication Reconciliation Form, Thank You Letter, Antibiotic Education, Prescription Opioid Use. Follow up: Private Physician; When: Tomorrow; Reason: Continuance of care. ma2
--- NOTE | 2019-12-06 16:11 | ER ---
Nurse's Notes [facility] Name: Pretty Crook Age: 79 yrs Sex: Female : 1940 Arrival Date: 12/06/2019 Time: 14:09 Bed 20 Private MD: Diagnosis: Acute upper respiratory infection, unspecified Presentation: 12/05 14:24 Chief complaint: Patient states: fever and chills since yesterday. Denies cough, SOB. ss Coronavirus screen: Client denies travel out of the [place] in the last 14 days. chills, fever, Client presents with at least one sign or symptom that may indicate coronavirus-19. Standard/surgical mask placed on the client. Provider contacted for isolation considerations. Ebola Screen: Patient denies exposure to infectious person. Patient denies travel to an Ebola-affected area in the 21 days before illness onset. Initial Sepsis Screen: Does the patient meet any 2 criteria? No. Patient's initial sepsis screen is negative. Does the patient have a suspected source of infection? No. Patient's initial sepsis screen is negative. Risk Assessment: Do you want to hurt yourself or someone else? Patient reports no desire to harm self or others. Onset of symptoms was December 05, 2019. 14:24 Method Of Arrival: Ambulatory ss 14:24 Acuity: DUSTIN 3 ss Historical: - Allergies: 14:27 PENICILLINS; ss - PMHx: 14:27 Hypertension; RA; ss - PSHx: 14:27 Appendectomy; will knees; Hysterectomy; elbow; hip; ss - Immunization history:: Adult Immunizations up to date. - Social history:: Smoking status: Patient denies any tobacco usage or history of. Patient/guardian denies using alcohol, street drugs, The patient lives with family. - Family history:: not pertinent. Screenin:29 Abuse screen: Denies threats or abuse. Nutritional screening: No deficits noted. em Tuberculosis screening: No symptoms or risk factors identified. Fall Risk None identified. Assessment: 14:30 General: Appears in no apparent distress. comfortable, Behavior is calm, cooperative, em appropriate for age, Reports chills for 12-24 hours, fever for 12-24 hours. Pain: Denies pain. Neuro: Level of Consciousness is awake, alert, obeys commands, Oriented to person, place, time, situation, Appropriate for age. Cardiovascular: Capillary refill < 3 seconds Patient's skin is warm and dry. Respiratory: Airway is patent Respiratory effort is even, unlabored, Respiratory pattern is regular, symmetrical, Denies cough, shortness of breath. GI: Abdomen is flat, Patient currently denies nausea, vomiting. Derm: Skin is intact, is fragile, is thin, Skin is pink, warm \T\ dry. Musculoskeletal: Capillary refill < 3 seconds. 15:30 Reassessment: Patient appears in no apparent distress at this time. Patient and/or em family updated on plan of care and expected duration. Pain level reassessed. Patient is alert, oriented x 3, equal unlabored respirations, skin warm/dry/pink. 16:51 Reassessment: Patient appears in no apparent distress at this time. Patient and/or em family updated on plan of care and expected duration. Pain level reassessed. Patient is alert, oriented x 3, equal unlabored respirations, skin warm/dry/pink. Vital Signs: 14:24 BP 171 / 70; Pulse 111; Resp 18; Temp 100.7(O); Pulse Ox 99% on R/A; Weight 77.11 kg; ss Height 5 ft. 3 in. (160.02 cm); Pain 0/10; 15:18 BP 117 / 51; Pulse 97; Resp 18; Pulse Ox 96% on R/A; em 16:52 BP 120 / 50; Pulse 86; Resp 18; Temp 99.1(O); Pulse Ox 99% on R/A; em 14:24 Body Mass Index 30.11 (77.11 kg, 160.02 cm) ED Course: 14:09 Patient arrived in ED. mr 14:16 Carlene Flanagan MD is Attending Physician. ma2 14:17 Canelo Hernandez, HUMA is Primary Nurse. em 14:26 Triage completed. ss 14:27 Arm band placed on right wrist. ss 14:29 Patient has correct armband on for positive identification. Placed in gown. Bed in low em position. Call light in reach. Side rails up X2. Pulse ox on. NIBP on. 14:54 Chest Single View XRAY In Process Unspecified. EDMS 15:25 Initial lab(s) drawn, by me, sent to lab. Inserted saline lock: 20 gauge in right em antecubital area, using aseptic technique. Blood collected. 16:51 No provider procedures requiring assistance completed. IV discontinued, intact, em bleeding controlled, No redness/swelling at site. Pressure dressing applied. Administered Medications: 15:40 Drug: Acetaminophen 650 mg Route: PO; em 16:52 Follow up: Response: No adverse reaction; Temperature is decreased em 15:40 Drug: AZITHromycin 500 mg Route: PO; em 16:52 Follow up: Response: No adverse reaction em Outcome: 16:11 Discharge ordered by MD. bennett 16:51 Discharged to home ambulatory. em 16:51 Condition: good 16:51 Discharge instructions given to patient, Instructed on discharge instructions, follow up and referral plans. medication usage, Demonstrated understanding of instructions, follow-up care, medications, Prescriptions given X 2. 16:54 Patient left the ED. em Signatures: Dispatcher [employer] Mimi Zavala Edgar, RN RN em Smirch, Shelby, RN RN ss Alzahri, Mohammad, MD MD ma2
[2019-12-10 01:48] VITALS: BP 120/50; TEMP 99.1; O2SAT 99
== END 2019-12-06 16:54 | disposition home or self-care (01) ==
LOC: ER 14:04
DX: J06.9 Acute upper respiratory infection, unspecified (principal); Z20.828 Contact with and (suspected) exposure to other viral communicable diseases; I10 Essential (primary) hypertension; Z88.0 Allergy status to penicillin
CPT/HCPCS: 87070; 85025; 36415; 87081; 81003; 80053; 87804 ×2; 71045; 99284; U0002

== ENCOUNTER 2021-12-26 08:43 | Inpatient (IN) | payer OTHER ==
--- NOTE | 2022-01-06 10:36 | R.PREADM ---
PRE-ADMISSION SCREENING FORM SCREENING DATE AND TIME 01/06/2022 10:30 (CDT) ANTICIPATED REHAB ADMISSION DATE 01/06/2022 REFERRAL ORIGIN/HOSPITAL [facility] REFERRAL DATE AND TIME 12/22/2021 10:34 (CDT) ACUTE ADMIT DATE 12/11/2021 HOSPITALIZED IN LAST 60 DAYS? Yes Previous Rehabilitation(s): No. REFERRING PHYSICIAN Billy Hagan REHAB FACILITY [facility] CLINICAL LIAISON Tessa ePck PHYSICIAN REVIEWER Dr. Kenny Humphrey M.D. [facility] [id number] [id number] NAME YASMIN LERNER ADDRESS [address] [facility] [facility] [address] [facility] [id number] DATE OF 1940 AGE 81 SSN# [id number] GENDER female MARITAL STATUS RACE Z. None of the above ETHNICITY E. Yes, another , , or Mexican origin [id number]. LANGUAGE ADMIT FROM 02 - [facility] PRE-HOSPITAL LIVING SETTING 01 - Home (private home/apt. board/care, assisted living, fpc, transitional living) HOME TYPE AND DETAILS Type of home: apartment # of levels in the residence: 1 # of steps to enter the residence: 0 # of steps within the residence: 0 PRE-HOSPITAL LIVING WITH Alone FAMILY SUPPORT No PHONE PRIMARY FAMILY CONTACT ON ADM.? no IS PRIMARY FAMILY CONTACT AUTH. REP.? no PHONE 1ST CONTACT ON ADM. no IS 1ST CONTACT AUTH. REP.? no PHONE 2ND CONTACT ON ADM.? no PATIENT EMPLOYMENT STATUS Retired (for age) PATIENT EMPLOYER No Employer PAYOR INFORMATION: 1ST PAYOR NAME Medicare 1ST PAYOR INJURY/ILLNESS DUE TO ACCIDENT? Yes ANOTHER DEMOCRAT RESPONSIBLE? Yes PRIMARY REHAB/ACUTE DIAGNOSIS: Left Open bimalleolar ankle fracture with intra-articular bony fragments Left closed displaced fracture of the medial condyle of the femur ONSET DATE 12/11/2021 REHAB IMPAIRMENT CATEGORY (MARTIN): 17 Major multiple trauma, no brain or spinal cord injury (MMT-NBSCI) does NOT meet 60% rule AFFECTED EXTREMITIES: LLE PRIMARY DIAGNOSIS-RELATED SURGERIES: wash out, debridement, wound vac exchange L ankle 9/8 wash out, debridement, wound vac exchange L ankle 9/10 wash out, debridement, wound vac exchange L ankle with PRS 12/19 COMORBID REHAB/ACUTE DIAGNOSES: - Non-Tiered Essential (primary) hypertension (I10) Hypothyroidism, unspecified (E03.9) Coagulation defect, unspecified (D68.9) Acute pain due to trauma (G89.11) Other rheumatoid arthritis (M06) Multiple fractures of ribs, unspecified side, subsequent encounter for fracture with routine healing (S22.49XD) Acute posthemorrhagic anemia (D62) Type 2 diabetes mellitus without complications (E11.9) INTERVENTIONS: - Pain Anticipate the need for pain medication for optimal pain managment Assess/Monitor pt pain and treat with prescribed pain medications Educate pt on relaxation techniques and deep breathing Non pharmacological pain management Monitor for headaches - Multiple Trauma Fractures Open/Closed Aggressive PT/OT Assess the integrity of the external fixation device Support fracture site with pillows or folded blankets. Maintain a neutral position of the affected pa rt with sandbags, splints, trochanter roll, footboard Maintain bed rest or limb rest as indicated. Provide support of joints above and below the fracture s ite, especially when moving and turning. Assess/Monitor pt pain and treat with prescribed pain medications Assess/monitor for s/s of infection Maintain extremity elevation to minimize edema Wound management - Hypertension Implement healthy diet Assess/ Monitor patient B/P and treat with prescribed medications Increase physical activity - RA Provide a variety of comfort measures Administer anti-inflammatory, analgesic, and slow-actingantirheumatic medications as prescribed. Facilitate development of appropriate activity/rest schedule Encourage adherence to the treatment program Emphasize range of motion of affected joints; promoteuse of assistive ambulatory devices; explain u se of safefootwear; use individual appropriate positioning/posture. Assist to identify environmental barriers - Anemia Anticipate the need for transfusion given pt hx Monitor pt labs Treat with IV medications and PETE - Type 2 Diabetes Assess LE for temperature, pulses, color, and sensation. Assess for signs of hyperglycemia. Assess for signs of hypoglycemia. Monitor blood glucose and effectiveness of medications/Insulin Promote proper diet RISK FOR COMPLICATIONS: - DVT Active and Passive ROM exercises Administer medications per MD order Assist patient with frequent position changes Elevate BLE - Skin Breakdown Encourage ambulation as tolerated Repositioning q 2 hours - Pain Assess pt for pain and Administer prescribed pain medication as needed Assist patient with frequent position changes at least every 2 hours Educate patient on relaxation and deep breathing techniques - Falls Maintain call light within patient reach for easy access to nursing assistance Provide assistance getting out of bed and with ambulation Provide assistive devices - Stroke Assess/ Monitor and maintain patient pain level Assess/ Monitor patient blood pressure - Bleeding Assess/ Monitor pt for injury Maintain pt safety SUMMARY OF ACUTE HOSPITALIZATION: Her impairment category is Orthopaedic Disorders 08 - Major Multiple Fractures (08.4). Pt. is a 81 yo HF. Pre-morbidly, Pt. was independent/mod-I in Locomotion and Self-Care; and she had good Safety Awarenes s, Transfers Control, Balance, and Endurance. Currently, she has deficits of Locomotion, Safety Awareness, Balance, Transfers Control, Self-Care, a nd Endurance. Pt. is now referred to [facility] for acute in-patient rehabilitation in order to maximize patient's functional independence in activities of daily living, strength, ROM, and mobi lity. Patient has realistic goal of being discharged at assistance level 6-Jase to reside at Home with Pt self. On 12/11/2021 she was admitted to [facility] with diagnosis Left Open bimalleolar ankle fracture with intra-articular bony fragments. PAST MEDICAL AND SURGICAL HISTORY: - MedicalCardiovascular HTN Diabetes Type II Other hypothyroidism - Rheumatologic Previous sites of joints involvement and present level of disease activity Fingers - Musculoskeletal Fractures cervical spine fracture MEDICATION ALLERGIES: No Known Drug Allergies (NKDA) ENVIRONMENTAL ALLERGIES: - Substance Allergies None Known - Other Allergies None Known CODE STATUS: Full code WEIGHT/HEIGHT/BMI: WEIGHT 178 lbs HEIGHT unknown BMI N/A SKIN DIAGRAM: Wound Vac on Left lower leg; extent - small; stage - NS(Not Stageable). Treatment - Per Physician's O rders. latissimus dorsi free flap on Left lower leg; extent - small; stage - NS(Not Stageable). Treatment - Per Physician's Orders. [id number]. PRIOR FUNCTIONING: EVERYDAY ACTIVITIES. A. SELF CARE Independent - Patient completed the activities by him/herself, with or without an assistive device, w ith no assistance from a helper. CODE: 3 B. INDOOR MOBILITY (AMBULATION) Independent - Patient completed the activities by him/herself, with or without an assistive device, w ith no assistance from a helper. CODE: 3 C. STAIRS Independent - Patient completed the activities by him/herself, with or without an assistive device, w ith no assistance from a helper. CODE: 3 D. FUNCTIONAL COGNITION Independent - Patient completed the activities by him/herself, with or without an assistive device, w ith no assistance from a helper. CODE: 3 [id number]. PRIOR DEVICE USE. Z. None of the above [id number]. NUTRITIONAL APPROACHES.: C. Mechanically altered diet - require change in texture of food or liquids (e.g., pureed food, thick ened liquids) Z. None of the above VITAL SIGNS Temperature: 98 F SBP/DBP: 157/71 Pulse: 90 Resp: 18 Vital signs stable, afebrile MEDICATIONS/TREATMENT: Other- See attached MAR (Medication Administration Record). CURRENT SPHINCTER CONTROL: Pre-hospital bladder status: unspecified # of bladder accidents in the last 7 days prior to screenin Pre-hospital bowel status: unspecified # of bowel accidents in the last 7 days prior to screenin Last Bowel Movement Date: 12/22/2021 DETAILED CURRENT FUNCTIONAL STATUS: - Bladder accident frequency: 7-Ind - No accidents in the past 7 days - Bowel accident frequency: 7-Ind - No accidents in the past 7 days - Walking score based on distance walked: 0(N/A) - Wheelchair score based on distance traveled: 0(N/A) QI SCORES: - Self-Care A. Eating 05-Setup or clean-up assistance B. Oral hygiene 03-Partial/moderate assistance C. Toileting hygiene 02-Substantial/maximal assistance E. Shower/bathe self 02-Substantial/maximal assistance F. Upper body dressing 03-Partial/moderate assistance G. Lower body dressing 02-Substantial/maximal assistance H. Putting on/taking off footwear 02-Substantial/maximal assistance - Mobility A. Roll left and right 02-Substantial/maximal assistance B. Sit to lying 03-Partial/moderate assistance C. Lying to sitting on side of bed 03-Partial/moderate assistance D. Sit to stand 03-Partial/moderate assistance E. Chair/[id number]-[id number] transfer 01-Dependent F. Toilet transfer 01-Dependent G. Car transfer 88-Not attempted due to medical condition or safety concerns I. Walk 10 feet 88-Not attempted due to medical condition or safety concerns J. Walk 50 feet with two turns 88-Not attempted due to medical condition or safety concerns K. Walk 150 feet 88-Not attempted due to medical condition or safety concerns L. Walking 10 feet on uneven surfaces 88-Not attempted due to medical condition or safety concerns M. 1 step (curb) 88-Not attempted due to medical condition or safety concerns N. 4 steps 88-Not attempted due to medical condition or safety concerns O. 12 steps 88-Not attempted due to medical condition or safety concerns P. Picking up object 88-Not attempted due to medical condition or safety concerns R. Wheel 50 feet with two turns 09-Not applicable S. Wheel 150 feet 09-Not applicable - Bladder and Bowel Bladder continence 0-Always continent Bowel continence 0-Always continent HISTORY OF FALLS. HAS THE PATIENT HAD TWO OR MORE FALLS IN THE PAST YEAR OR ANY FALL WITH INJURY IN T HE PAST YEAR?: No PRIOR SURGERY. DID THE PATIENT HAVE MAJOR SURGERY DURING THE 100 DAYS PRIOR TO ADMISSION?: Yes [id number]. SPECIAL TREATMENTS, PROCEDURES, AND PROGRAMS Z1. NONE OF THE ABOVE: No THERAPY NOTES FROM ACUTE CARE: Attached. SAFETY COCERNS/PRECAUTIONS: Fall history/High risk of falls - # of falls this year 0 Balance COMPLEX WOUND CARE: Complex wound care Stage unknown POST-SURGICAL HIP PRECAUTIONS: Post-surgical hip precautions WEIGHT BEARING STATUS: NWB SKIN BREAKDOWN RISK: Skin Breakdown Risk BLEEDING RISK: Bleeding Risk DVT RISK: DVT Risk IV: Peripheral HEARING/VISION PRECAUTIONS: Cultural considerations PATIENT NEEDS ACTIVE AND ONGOING THERAPEUTIC INTERVENTION OF MULTIPLE THERAPY DISCIPLINES, INCLUDING: - Dietary and Nutrition Adequate Nutrition. Nutritional Education. Nutritional Supplements. - Occupational Therapy Cognitive Retraining. Patient needs Occupational Therapy for a daily minimum of 1.5 hours at least 5 out of 7 days, to improve Activities of Daily Living, including: Eating, Grooming, Bathing, Dressing, Toileting, Toilet Transfers, Community Reintegration, Higher functional activities, Adaptive Equipme nt, Splinting, Household Tasks, and Other activities as determined. Visual Perceptual Training. - Physical Therapy Patient needs Physical Therapy for a daily minimum of 1.5 hours at least 5 out of 7 days, to improve: Mobility, Strengthening, Transfers, Stretching, ROM, Endurance, Ability to manage stairs, Gait, and Balance. PATIENT NEEDS CLOSE MEDICAL SUPERVISION BY A REHABILITATION PHYSICIAN FOR: Coordination of Treatment Team Diabetes Management Medical and Co-Morbidity Management Pain Management Wound Care Post-Op Complications PATIENT REQUIRES 24X7 REHAB NURSING FOR MEDICAL AND FUNCTIONAL MGT. OF THE FOLLOWING DEFICITS: Disease Management Medication Management Pain Management Patient requires 24x7 Rehabilitation Nursing for: Pain Issues, Identifying and preventing risk factor s, Monitoring and reporting current medical conditions, Assisting with ambulation and transfer, David ting with all ADL-s, Teaching patients about disease process and medications, Family teaching, Provid ing safe environment, Bowel and Bladder Issues, Skin Integrity, and Medication Management Patient/Family Education Providing Safe Environment Skin Integrity PATIENT REQUIRES INTENSIVE, COORDINATED INTERDISCIPLINARY APPROACH TO REHAB: Arranging Home Equipment/Services Discharge Planning Family Intervention/Training Patient needs Dietary and Nutrition Services for: Adequate Nutrition, Nutritional Supplements, and Nu tritional Education Patient needs Sweater Operator and/or Case Management for: Discharge Planning, Arranging Home Equipmen t or Services, and Family Interventions Sweater Operator/Case Management PATIENT REHAB POTENTIAL: Juan José LERNER is able and expected to receive 3 hours of individualized therapy daily on at least 5 of every 7 days Juan José LERNER'mathieu prognosis for significant practical improvement within a reasonable period of time appe ars Good Expected level of measurable improvement will be of a practical value to Juan José Cartwright functional cap acity or adaptations to impairments Has a viable Discharge Plan Medically appropriate; condition is sufficiently stable to participate in intensive rehab program DISCHARGE PLAN: - Estimated Length of Stay (days) 13. - Consensus on plan Discharge plan has been discussed with primary caregiver. Patient/Family is in agreement with the alicia n. Primary caregiver is in agreement with the plan. - Patient/Family Goals Return home independently. - Planned Living Setting Upon Discharge Home, to live alone. Transitional Living. Primary caregiver: Pt self. RECOMMENDED CARE LEVEL: IRF RECOMMENDATION DETAILS: Recommended Admission to Comprehensive Rehabilitation Program to Increase Functional [place] SCREENER'S COMPLETENESS CONFIRMATION: - Screening Confirmation The patient data collection on this preadmission screening form is finished PHYSICIANS REVIEW AND ADMISSION DETERMINATION Admit - Based on my review of the Pre-Admission Screening results, in my medical judgment and experie nce, I concur with the findings and recommend admission to [facility], as this patient requires an IRF level of care. SIGNATURE PANEL: Clinical Liaison - [electronically] signed by Tessa Peck on 01/03/2022 at 14:23 (CDT) Physician Reviewer - [electronically] signed by Dr. Kenny Humphrey M.D. on 01/06/2022 at 10:35 (CDT )
--- OUTSIDE RECORDS SUMMARY | 2022-01-06 13:09 | XMS REPORT | Continuity of Care Document ---
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 10:29:00 10:29:00 [address] [place] [address] [facility] 2019-10-02 2019-10-02 [facility] [id number] Common 08:20:00 08:20:00 [address] [place] [address] [facility] 2019-09-28 2019-09-28 [facility] [id number] Common 00:02:00 00:02:00 [address] [place] [address] [facility] 2019-04-21 2019-04-21 [facility] [id number] Common 13:20:00 13:20:00 [address] [place] [address] [facility] 2018-11-28 2018-11-28 [facility] [id number] Common 14:20:00 14:20:00 [address] [place] [address] [facility] 2018-10-17 2018-10-17 [facility] [id number] Common 14:00:00 14:00:00 [address] [place] [address] [facility] 2018-08-29 2018-08-29 [facility] [id number] Common 11:00:00 11:00:00 [place] [address] [facility] 2018-06-06 2018-06-06 [facility] [id number] Common 14:30:00 14:30:00 [address] [place] [address] [facility] 2018-04-12 2018-04-12 [facility] [id number] Common 11:16:00 11:16:00 [address] [place] [address] [facility] 2018-03-07 2018-03-07 [facility] [id number] Common 14:30:00 14:30:00 [address] [place] [address] [facility] 2018-02-17 2018-02-17 [facility] [id number] [facility] 02:58[facility]00 11:08:[address] 2018-02-17 2018-02-17 Emergency On license of [facility] [id number] Memoria 02:58:00 11:08:00 lidya Gregg [facility] 2018-02-16 2018-02-17 Outpatient Salty [facility] [id number] 20:58:00 05:08:00 Chyna Lindsay Cristino 2018-01-22 2018-01-22 [facility] [id number] Common 13:47:00 13:47:00 [address] [place] [address] [facility] 2018-01-08 2018-01-08 [facility] [id number] Common 11:56:00 11:56:00 [address] [place] [address] [facility] 2017-12-05 2017-12-05 [facility] [id number] Common 14:00:00 14:00:00 [address] [place] [address] [facility] 2017-09-04 2017-09-04 [facility] [id number] Common 14:30:00 14:30:[address] [place] [address] [facility] Results Test Description Test Time Test Comments Results Result Comments Source POCT GRP A STREP (MOLECULAR) 2021-03-12 20:43:00 Test Item Value Reference Range Interpretation Comme nts POCT GP A STREP (test code = 02122-2) Negative Negative - Negat [facility]atan [facility] [id number] 10:14:00 Test Item Value Reference Range Interpretation Comments Lactic Acid Lvl (test code = Lactic 1.0 0.5-2.2 Acid Lvl) [facility]28 10:14:00 Test Item Value Reference Range Interpretation Comments Lactic Acid Lvl (test code = Lactic 1.0 0.5-2.2 Acid Lvl) [facility]ZE[facility]V2637[facility]63-93 06:08:00 Test Item Value Reference Range Interpretation Comments CO2 (test code = CO2) 21 24-32 [facility]IrtaaqfVAXLLCGCNTCP4487-80-99 06:08:00 Test Item Value Reference Range Interpretation Comments Chloride Lvl (test code = Chloride Lvl) 107 95-109 [facility]WiouqtfWGGRPFYMDGVD8429-10-64 06:08:00 Test Item Value Reference Range Interpretation Comments BUN (test code = BUN) 11 7-22 [facility]AmmpqjfOTGAOEEBWKBZ5995-44-55 06:08:00 Test Item Value Reference Range Interpretation Comments Potassium Lvl (test code = Potassium 4.2 3.5-5.1 Lvl) [facility]OkfuqioJPJPUCESRYWR7634-32-76 06:08:00 Test Item Value Reference Range Interpretation Comments Sodium Lvl (test code = Sodium Lvl) 139 135-145 [facility]PtzhwuaGDPOGAKRTLBF7172-18-10 06:08:00 Test Item Value Reference Range Interpretation Comments Glucose Lvl (test code = Glucose Lvl) 98 70-99 [facility]FurvkitXDYABGVNLEJY6613-51-91 06:08:00 Test Item Value Reference Range Interpretation Comments Creatinine Lvl (test code = Creatinine 0.68 0.50-1.40 Lvl) [facility] HospitalBoygqtdYRGTUBIANA8660-64-62 06:08:00 Test Item Value Reference Range Interpretation Comments Eosinophils # (test code 0.2 See_Comment [A utomated message] The = Eosinophils #) system whic h generated this result tra nsmitted reference range : <=0.5. The reference r angelia was not used to int erpret this result as normal/abnormal . [facility] HospitalDylsosoGMXRDASHUW6964-01-96 06:08:00 Test Item Value Reference Range Interpretation Comments Basophils (test code = 0.5 See_Comment [Aut omated message] The Basophils) system which ge nerated this result tra nsmitted reference range : <=1.0. The reference r angelia was not used to int erpret this result as normal/abnormal . [facility] HospitalCkhrwvmTBVXQXLEDO1614-08-15 06:08:00 Test Item Value Reference Range Interpretation Comments Neutrophils # (test code = Neutrophils 4.5 1.5-8.1 #) [facility] HospitalNmwnniwCMNMGJZGRO7109-49-40 06:08:00 Test Item Value Reference Range Interpretation Comments Lymphocytes # (test code = Lymphocytes 2.5 1.0-5.5 #) [facility] HospitalErasqtkOCOCDMTQJN6322-98-58 06:08:00 Test Item Value Reference Range Interpretation Comments Monocytes # (test code 0.6 See_Comment [Aut omated message] The = Monocytes #) system which generated this result tra nsmitted reference range : <=0.8. The reference r angelia was not used to int erpret this result as normal/abnormal . [facility] HospitalExzcmipYOCBOCQTIO9499-91-01 06:08:00 Test Item Value Reference Range Interpretation Comments Eosinophils (test code = 1.9 See_Comment [A utomated message] The Eosinophils) system which ge nerated this result tra nsmitted reference range : <=4.0. The reference r angelia was not used to int erpret this result as normal/abnormal . [facility] HospitalFgxycxnTVHKCGURUV3329-34-88 06:08:00 Test Item Value Reference Range Interpretation Comments Monocytes (test code = Monocytes) 7.8 2.0-12.0 [facility] HospitalHfzicoxTGQMRHZXFY9813-33-53 06:08:00 Test Item Value Reference Range Interpretation Comments Lymphocytes (test code = Lymphocytes) 31.6 20.0-40.0 [facility] HospitalZqkjrnjUYHKKYPTZI5735-77-92 06:08:00 Test Item Value Reference Range Interpretation Comments Segs (test code = Segs) 58.2 45.0-75.0 [facility] HospitalUxhgcmkHPNDZAOIDD1246-73-98 06:08:00 Test Item Value Reference Range Interpretation Comments PT (test code = PT) 13.7 s 12.0-14.7 [facility] HospitalAiikqmjKWKYLXYPXZ7466-57-56 06:08:00 Test Item Value Reference Range Interpretation Comments INR (test code = INR) 1.05 1 0.85-1.17 [facility] HospitalFtlffilFMQIUEWJXA0727-40-57 06:08:00 Test Item Value Reference Range Interpretation Comments RBC (test code = RBC) 4.00 4.20-5.40 [facility] HospitalWiebgopMXWGQSTYNA1942-82-31 06:08:00 Test Item Value Reference Range Interpretation Comments Hgb (test code = Hgb) 11.9 12.0-16.0 [facility]2018-11-11 06:08:00 Test Item Value Reference Range Interpretation Comments Lactic Acid Lvl (test code = Lactic 2.5 0.5-2.2 Acid Lvl) [facility]FfamkupLXNCVWBEFSOX6726-69-54 06:08:00 Test Item Value Reference Range Interpretation Comments AGAP (test code = AGAP) 15.2 10.0-20.0 [facility]AdwyiptPQKRHUSFVUPC8449-37-82 06:08:00 Test Item Value Reference Range Interpretation Comments eGFR (test code = eGFR) 83 [facility]GytmiosZKHBZNXVRZGK5370-92-53 06:08:00 Test Item Value Reference Range Interpretation Comments Calcium Lvl (test code = Calcium Lvl) 9.3 8.5-10.5 [facility] HospitalMycecvzOLVBIZUMGG3873-63-22 06:08:00 Test Item Value Reference Range Interpretation Comments WBC (test code = WBC) 7.8 3.7-10.4 [facility]TntojxbVBORYAWCMPNV3227-51-87 06:08:00 Test Item Value Reference Range Interpretation Comments CO2 (test code = CO2) 21 24-32 [facility]NordqzeJCUSUKBKPKAI1597-28-65 06:08:00 Test Item Value Reference Range Interpretation Comments Chloride Lvl (test code = Chloride Lvl) 107 95-109 [facility]TvyxoqzQNYEUPEBRBXY9343-57-59 06:08:00 Test Item Value Reference Range Interpretation Comments BUN (test code = BUN) 11 7-22 [facility]AtnsgqnPLPURLZVTHCW3581-93-92 06:08:00 Test Item Value Reference Range Interpretation Comments Potassium Lvl (test code = Potassium 4.2 3.5-5.1 Lvl) [facility]MnvsxurCQMJBPFNMGYQ3060-96-12 06:08:00 Test Item Value Reference Range Interpretation Comments Sodium Lvl (test code = Sodium Lvl) 139 135-145 [facility]FutipmvYKCXPLOXYJCB3477-84-35 06:08:00 Test Item Value Reference Range Interpretation Comments Glucose Lvl (test code = Glucose Lvl) 98 70-99 [facility]JgqklswZSKWVIYIMQWM4221-64-08 06:08:00 Test Item Value Reference Range Interpretation Comments Creatinine Lvl (test code = Creatinine 0.68 0.50-1.40 Lvl) [facility] HospitalVwltgfcVXRRMWLGVA0102-05-24 06:08:00 Test Item Value Reference Range Interpretation Comments Eosinophils # (test code 0.2 See_Comment [A utomated message] The = Eosinophils #) system whic h generated this result tra nsmitted reference range : <=0.5. The reference r angelia was not used to int erpret this result as normal/abnormal . [facility] HospitalVjpwfmqGWWWPNTEDO0488-17-82 06:08:00 Test Item Value Reference Range Interpretation Comments Basophils (test code = 0.5 See_Comment [Aut omated message] The Basophils) system which ge nerated this result tra nsmitted reference range : <=1.0. The reference r angelia was not used to int erpret this result as normal/abnormal . [facility] HospitalPqlfdskOOSNGNZWQO4028-91-63 06:08:00 Test Item Value Reference Range Interpretation Comments Neutrophils # (test code = Neutrophils 4.5 1.5-8.1 #) [facility] HospitalEaysxehGTSQGIQPRN8287-47-73 06:08:00 Test Item Value Reference Range Interpretation Comments MPV (test code = MPV) 9.8 7.4-10.4 [facility] HospitalKnjssvdAOVIEVBTWL1200-14-33 06:08:00 Test Item Value Reference Range Interpretation Comments Lymphocytes # (test code = Lymphocytes 2.5 1.0-5.5 #) [facility] HospitalPlorcctTVHATRGEVX6025-36-07 06:08:00 Test Item Value Reference Range Interpretation Comments Monocytes # (test code 0.6 See_Comment [Aut omated message] The = Monocytes #) system which generated this result tra nsmitted reference range : <=0.8. The reference r angelia was not used to int erpret this result as normal/abnormal . [facility] HospitalGhqeqiiGEYXVYQJBZ1313-70-93 06:08:00 Test Item Value Reference Range Interpretation Comments Eosinophils (test code = 1.9 See_Comment [A utomated message] The Eosinophils) system which ge nerated this result tra nsmitted reference range : <=4.0. The reference r angelia was not used to int erpret this result as normal/abnormal . [facility] HospitalOkobfrbFYKFPDLEKA2561-39-09 06:08:00 Test Item Value Reference Range Interpretation Comments Monocytes (test code = Monocytes) 7.8 2.0-12.0 [facility] HospitalMbndzuyNGABHBXNJX5462-88-32 06:08:00 Test Item Value Reference Range Interpretation Comments Lymphocytes (test code = Lymphocytes) 31.6 20.0-40.0 [facility] HospitalKrlupwmXDWQUHBAAD1684-04-89 06:08:00 Test Item Value Reference Range Interpretation Comments Segs (test code = Segs) 58.2 45.0-75.0 [facility] HospitalLlyiyzvQJKAIIOSZH6618-48-57 06:08:00 Test Item Value Reference Range Interpretation Comments PT (test code = PT) 13.7 s 12.0-14.7 [facility] HospitalKdpbidoQSTTPVFQIN8775-05-54 06:08:00 Test Item Value Reference Range Interpretation Comments INR (test code = INR) 1.05 1 0.85-1.17 [facility] HospitalNzxucpjPVKSXWVAUW9455-44-78 06:08:00 Test Item Value Reference Range Interpretation Comments RBC (test code = RBC) 4.00 4.20-5.40 [facility] HospitalMbvwsgcDPCEFENTUO7267-54-06 06:08:00 Test Item Value Reference Range Interpretation Comments Hgb (test code = Hgb) 11.9 12.0-16.0 [facility] HospitalJagdzluTZFLYGUCYN9415-81-89 06:08:00 Test Item Value Reference Range Interpretation Comments Platelet (test code = Platelet) 301 511-381 [facility] HospitalVbtxstmOSRBSOCETR1941-10-19 06:08:00 Test Item Value Reference Range Interpretation Comments WBC (test code = WBC) 7.8 3.7-10.4 [facility] HospitalTglratqBGLFHSYIBJ8824-73-17 06:08:00 Test Item Value Reference Range Interpretation Comments MPV (test code = MPV) 9.8 7.4-10.4 [facility] HospitalRtqavqpYGNUARNVBQ4794-13-81 06:08:00 Test Item Value Reference Range Interpretation Comments Platelet (test code = Platelet) 301 833-495 [facility] HospitalEeuzxnvFTBBQIDHLS7365-23-01 06:08:00 Test Item Value Reference Range Interpretation Comments MCV (test code = MCV) 89.9 80.0-98.0 [facility] HospitalRhgycgpQUVMLJGDYB7686-72-57 06:08:00 Test Item Value Reference Range Interpretation Comments MCH (test code = MCH) 29.6 pg 27.0-31.0 [facility] HospitalAgviivyJNQAOQIHSW1195-67-05 06:08:00 Test Item Value Reference Range Interpretation Comments Hct (test code = Hct) 36.0 36.0-48.0 [facility] HospitalSvlcfawNATYPSXYBI2413-29-13 06:08:00 Test Item Value Reference Range Interpretation Comments MCHC (test code = MCHC) 32.9 32.0-36.0 [facility] HospitalLbfenfgNEWHEMFDTE1582-89-50 06:08:00 Test Item Value Reference Range Interpretation Comments RDW (test code = RDW) 16.1 11.5-14.5 [facility] HospitalDlnoosuFCRYCSZCKP8353-91-52 06:08:00 Test Item Value Reference Range Interpretation Comments PTT (test code = PTT) 32.9 s 22.9-35.8 [facility] CenterUlsgfyaHBLMDKWAIZ4835-32-79 06:08:00 Test Item Value Reference Range Interpretation Comments MCV (test code = MCV) 89.9 80.0-98.0 [facility] HospitalFixhbeuPTQABLJHCV3358-95-97 06:08:00 Test Item Value Reference Range Interpretation Comments MCH (test code = MCH) 29.6 pg 27.0-31.0 [facility] HospitalMtikwhxOHHVMHDYZQ8179-24-44 06:08:00 Test Item Value Reference Range Interpretation Comments Hct (test code = Hct) 36.0 36.0-48.0 [facility] HospitalDpjbpgoDHRRBEUPHD0729-07-85 06:08:00 Test Item Value Reference Range Interpretation Comments MCHC (test code = MCHC) 32.9 32.0-36.0 [facility] HospitalKerumnqLFQVTJRCWK5529-97-19 06:08:00 Test Item Value Reference Range Interpretation Comments RDW (test code = RDW) 16.1 11.5-14.5 [facility] HospitalJomhpmoFBYOUGXWRB6922-24-60 06:08:00 Test Item Value Reference Range Interpretation Comments PTT (test code = PTT) 32.9 s 22.9-35.8 [facility] EJKJY3606-54-38 06:08:00 Test Item Value Reference Range Interpretation Comments Lactic Acid Lvl (test code = Lactic 2.5 0.5-2.2 Acid Lvl) [facility]fgtngbHFIFXHWITCPR8616-53-75 06:08:00 Test Item Value Reference Range Interpretation Comments AGAP (test code = AGAP) 15.2 10.0-20.0 [facility]XuqxybnQOKHMKNMLDXC2552-70-80 06:08:00 Test Item Value Reference Range Interpretation Comments eGFR (test code = eGFR) 83 [facility]CokqqpuGERVKFUFPFLX0420-87-01 06:08:00 Test Item Value Reference Range Interpretation Comments Calcium Lvl (test code = Calcium Lvl) 9.3 8.5-10.5 [facility]
[2022-01-06 13:49] VITALS: BMI 30.5
[2022-01-06] MEDS: ENOXAPARIN 40 MG/0.4 ML SQ SCH (15:00)
--- NOTE | 2022-01-06 15:45 | R.HP ---
HISTORY AND PHYSICAL FACILITY: [facility] ENCOUNTER DATE AND TIME: 01/06/2022 15:23 (CDT) MR#: [id number] NAME YASMIN LERNER ADDRESS: [address] CITY: [place]IP [address] PHONE: DATE OF : 1940 AGE: 81 SSN# [id number] GENDER: Female DEXTERITY Unknown dexterity MARITAL STATUS PRE-HOSPITAL LIVING SETTING 01 - Home (private home/apt. board/care, assisted living, correction, transitional living) PRE-HOSPITAL LIVING WITH Alone ENCOUNTER PHYSICIAN: Dr. Kenny Humphrey M.D. REFERRING DOCTOR: Billy Hagan DATE OF ADMISSION: 01/06/2022 13:06 (CDT) REFERRING FACILITY [facility] TYPE AND DETAILS: Type of home: apartment # of levels in the residence: 1 # of steps to enter the residence: 0 # of steps within the residence: 0 ONSET DATE: 12/11/2021 PRIMARY DIAGNOSIS-RELATED SURGERIES: wash out, debridement, wound vac exchange L ankle 9/8 wash out, debridement, wound vac exchange L ankle 9/10 wash out, debridement, wound vac exchange L ankle with PRS 9/12 SECONDARY/COMORBID DIAGNOSES (TIERED): - Non-Tiered Essential (primary) hypertension (I10) Hypothyroidism, unspecified (E03.9) Coagulation defect, unspecified (D68.9) Acute pain due to trauma (G89.11) Other rheumatoid arthritis (M06) Multiple fractures of ribs, unspecified side, subsequent encounter for fracture with routine healing (S22.49XD) Acute posthemorrhagic anemia (D62) Type 2 diabetes mellitus without complications (E11.9) HISTORY OF PRESENT ILLNESS (HPI): Her impairment category is Orthopaedic Disorders 08 - Major Multiple Fractures (08.4). Pt. is a 81 yo HF. Pre-morbidly, Pt. was independent/mod-I in Locomotion and Self-Care; and she had good Safety Awarenes s, Transfers Control, Balance, and Endurance. Currently, she has deficits of Locomotion, Safety Awareness, Balance, Transfers Control, Self-Care, a nd Endurance. Pt. is now referred to [facility] for acute in-patient rehabilitation in order to maximize patient's functional independence in activities of daily living, strength, ROM, and mobi lity. Patient has realistic goal of being discharged at assistance level 6-Jase to reside at Home with Pt self. On 12/11/2021 she was admitted to [facility] with diagnosis Left Open bimalleolar ankle fracture with intra-articular bony fragments. MEDICATION ALLERGIES: No Known Drug Allergies (NKDA) ENVIRONMENTAL ALLERGIES: - Substance Allergies None Known - Other Allergies None Known PAST MEDICAL HISTORY: Acute pain due to trauma (G89.11) Acute posthemorrhagic anemia (D62) Coagulation defect, unspecified (D68.9) Essential (primary) hypertension (I10) Hypothyroidism, unspecified (E03.9) Multiple fractures of ribs, unspecified side, subsequent encounter for fracture with routine healing (S22.49XD) Other rheumatoid arthritis (M06) Type 2 diabetes mellitus without complications (E11.9) SOCIAL HISTORY: - Home Living Alone REVIEW OF SYSTEMS: - Gen No Chills Fatigue No Fever - Eyes No Double Vision No itchiness - ENMT No Difficulty Swallowing - CVS No Chest Discomfort No Chest Pain Fatigue No Weight Gain - Resp No Cough No Shortness of Breath - GI Continent No Abdominal Pain No Constipation No Diarrhea - Continent No Kidney Pain No Painful Urination No Urinary Urgency - MSK No Joint Pain No Muscle Cramps Stiffness - Skin No Itching No Rash No Suspicious Lesions - Neuro Coordination Difficulty No Difficulty with Concentration No Memory Loss No Seizures Weakness - Psych No Anxiety No Depression No HIV Exposure No Persistent Infections No Seasonal Allergies - Endo No Cold/Heat Intolerance No Excessive Hunger No Excessive Thirst No Excessive Urination PHYSICAL EXAM - Gen No apparent distress - Skin Left foot is fixed with rods and left thigh graft donor side with good hemostasis. Normacephalic - Eyes No abnormalities - ENMT No abnormalities - Neck No abnormalities - CVS RRR - Chest No abnormalities - Resp Clear to auscultation - Abd Soft - GI nondistended Deferred - No abnormalities - Ext Left foot is fixed with rods and left thigh graft donor side with good hemostasis. - MSK 4+/5 weakness in left lower extremity - Neuro 4/5 strength left lower extremity. - Psych No abnormalities VITAL SIGNS Temperature: 98.4 F SBP/DBP: 120/45 Pulse: 67 Resp: 16 NURSING: - Shower allowing shower - Lab Results blood Sugar Check ACHS - Skin care per protocol PRECAUTIONS: - Weight Bearing Precaution NWB left LE ACTIVITIES OOB only with supervision QI SCORES: - Self-Care A. Eating 05-Setup or clean-up assistance B. Oral hygiene 03-Partial/moderate assistance C. Toileting hygiene 02-Substantial/maximal assistance E. Shower/bathe self 02-Substantial/maximal assistance F. Upper body dressing 03-Partial/moderate assistance G. Lower body dressing 02-Substantial/maximal assistance H. Putting on/taking off footwear 02-Substantial/maximal assistance - Mobility A. Roll left and right 02-Substantial/maximal assistance B. Sit to lying 03-Partial/moderate assistance C. Lying to sitting on side of bed 03-Partial/moderate assistance D. Sit to stand 03-Partial/moderate assistance E. Chair/[id number] transfer 01-Dependent F. Toilet transfer 01-Dependent G. Car transfer 88-Not attempted due to medical condition or safety concerns I. Walk 10 feet 88-Not attempted due to medical condition or safety concerns J. Walk 50 feet with two turns 88-Not attempted due to medical condition or safety concerns K. Walk 150 feet 88-Not attempted due to medical condition or safety concerns L. Walking 10 feet on uneven surfaces 88-Not attempted due to medical condition or safety concerns M. 1 step (curb) 88-Not attempted due to medical condition or safety concerns N. 4 steps 88-Not attempted due to medical condition or safety concerns O. 12 steps 88-Not attempted due to medical condition or safety concerns P. Picking up object 88-Not attempted due to medical condition or safety concerns R. Wheel 50 feet with two turns 09-Not applicable S. Wheel 150 feet 09-Not applicable - Bladder and Bowel Bladder continence 0-Always continent Bowel continence 0-Always continent CURRENT FUNC. DEFICITS: Self-Care and Mobility MEDICATIONS: - Other See attached MAR (Medication Administration Record) ASSESSMENT: Her impairment category is Orthopaedic Disorders 08 - Major Multiple Fractures (08.4).Pt. is a 81 yo HF.Pre-morbidly, Pt. was independent/mod-I in Locomotion and Self-Care; and she had good Safety Awar eness, Transfers Control, Balance, and Endurance.Currently, she has deficits of Locomotion, Safety Aw areness, Balance, Transfers Control, Self-Care, and Endurance.Pt. is now referred to [facility] for acute in-patient rehabilitation in order to maximize patient's functional indep endence in activities of daily living, strength, ROM, and mobility.- Rehab Goal Patient has realistic goal of being discharged at assistance level 6-Jase to reside at Home with Pt self. - Physical Therapy Decreased range of motion - to improve, our physical therapists will perform initial evaluation of pt 's status upon admission and devise an individualized program for increasing patient's Range of Motio n. Inability to transfer - to improve, our physical therapists will perform initial evaluation of pt's s tatus upon admission and devise an individualized program for Bed mobility Need for home safety evaluation - to improve, our physical therapists will perform initial evaluation of pt's status upon admission and devise an individualized program for Home Evaluation Need in caregiver upon discharge - to improve, our physical therapists will perform initial evaluatio n of pt's status upon admission and devise an individualized program for Caregiver Training New precaution - to improve, our physical therapists will perform initial evaluation of pt's status u issa admission and devise an individualized program for Patient precaution education Pain - to improve, our physical therapists will perform initial evaluation of pt's status upon admiss ion and devise an individualized program for Modalities Poor balance - to improve, our physical therapists will perform initial evaluation of pt's status upo n admission and devise an individualized program for Balance Training Poor endurance - to improve, our physical therapists will perform initial evaluation of pt's status u issa admission and devise an individualized program for Endurance Training Achieving independence - to improve, our physical therapists will perform initial evaluation of pt's status upon admission and devise an individualized program for Community Reintegration Activities - Occupational Therapy ADL deficits - to improve, our occupation therapists will perform initial evaluation of pt's status u issa admission and devise an individualized program for Bathing, Bed mobility, Community Reintegration , Cooking, Dressing, Eating, Fine Motor Skills, Grooming, Homemaking, Kitchen Mobility, Laundry, Katie ent Education, Safety Awareness, Splinting - Positioning, Transfers(Toilet, Tub, Shower), and Wheel C hair Management Need for day care home provider - to improve, our occupation therapists will perform initial evaluation of pt's s tatus upon admission and devise an individualized program for Caregiver Training MEDICAL PLAN: - Diet Type Start Regular - Diet - Liquid Texture Start Regular - Tube Feed Start N/A - Lab Results blood Sugar Check ACHS - Weight Bearing Precaution NWB left LE - Skin care per protocol - Other See attached MAR (Medication Administration Record) - Diet - Solid Texture Regular - Shower shower DISCHARGE PLAN: - Estimated Length of Stay (days) 13. - Consensus on plan Discharge plan has been discussed with primary caregiver. Patient/Family is in agreement with the alicia n. Primary caregiver is in agreement with the plan. - Patient/Family Goals Return home independently. - Planned Living Setting Upon Discharge Home, to live alone. Transitional Living. Primary caregiver: Pt self. SIGNATURE PANEL: (CDT)
[2022-01-06] MEDS: ACETAMINOPHEN 500 MG TAB PO SCH ×2 (15:46→22:41)
--- NOTE | 2022-01-06 15:47 | PAPE ---
POST ADMISSION PHYSICIAN EVALUATION PATIENT: [facility] MR# [id number] REFERRING DOCTOR Billy Hagan EVALUATION DATE AND TIME 01/06/2022 15:45 (CDT) NAME YASMIN LERNER DATE OF 1940 AGE 81 PHONE N# [id number] GENDER female EVALUATING PHYSICIAN Dr. Kenny Humphrey M.D. ADMISSION DIAGNOSIS: Left Open bimalleolar ankle fracture with intra-articular bony fragments Left closed displaced fracture of the medial condyle of the femur ONSET DATE 12/11/2021 SECONDARY/COMORBID DIAGNOSES TIERED: - Non-Tiered Essential (primary) hypertension (I10) Hypothyroidism, unspecified (E03.9) Coagulation defect, unspecified (D68.9) Acute pain due to trauma (G89.11) Other rheumatoid arthritis (M06) Multiple fractures of ribs, unspecified side, subsequent encounter for fracture with routine healing (S22.49XD) Acute posthemorrhagic anemia (D62) Type 2 diabetes mellitus without complications (E11.9) POST-ADMISSION FUNCTIONAL/MEDICAL STATUS: - Bladder Same accident frequency: 7-Ind - No accidents in the past 7 days - Bowel Same accident frequency: 7-Ind - No accidents in the past 7 days - Walking Same score based on distance walked: 0(N/A) - Wheelchair Same score based on distance traveled: 0(N/A) STATUS CHANGE EVALUATION: No change in Functional or Medical Status is identified compared with Pre-Admission screening. PATIENT NEEDS CLOSE MEDICAL SUPERVISION BY A REHABILITATION PHYSICIAN FOR: Coordination of Treatment Team Diabetes Management Medical and Co-Morbidity Management Pain Management Wound Care Post-Op Complications PATIENT REQUIRES 24X7 REHAB NURSING FOR MEDICAL AND FUNCTIONAL MGT. OF THE FOLLOWING DEFICITS: Disease Management Medication Management Pain Management Patient requires 24x7 Rehabilitation Nursing for: Pain Issues, Identifying and preventing risk factor s, Monitoring and reporting current medical conditions, Assisting with ambulation and transfer, David ting with all ADL-s, Teaching patients about disease process and medications, Family teaching, Provid ing safe environment, Bowel and Bladder Issues, Skin Integrity, and Medication Management Patient/Family Education Providing Safe Environment Skin Integrity PATIENT REQUIRES INTENSIVE, COORDINATED INTERDISCIPLINARY APPROACH TO REHAB: Arranging Home Equipment/Services Discharge Planning Family Intervention/Training Patient needs Dietary and Nutrition Services for: Adequate Nutrition, Nutritional Supplements, and Nu tritional Education Patient needs [employer] and/or Case Management for: Discharge Planning, Arranging Home Equipmen t or Services, and Family Interventions [employer]/Case Management LIST OF IDENTIFIED AND POTENTIAL PROBLEMS: Alteration in leisure activities Bladder, Incontinence Blood Pressure, Hypertension/hypotension Issues Bowel, Incontinence Diabetes, Hyperglycemia/hypoglycemia Issues Infection, Actual or Potential Mobility Impaired Pain, Alteration in Comfort Self Care Deficit Skin Integrity, Actual or Potential Urinary Tract Infection (UTI), Actual or Potential RISK FOR COMPLICATIONS - DVT Active and Passive ROM exercises. Administer medications per MD order. Assist patient with frequent p osition changes. Elevate BLE. - Pain Assess pt for pain and Administer prescribed pain medication as needed. Assist patient with frequent position changes at least every 2 hours. Educate patient on relaxation and deep breathing techniques. - Skin Breakdown Encourage ambulation as tolerated. Repositioning q 2 hours. - Falls Maintain call light within patient reach for easy access to nursing assistance. Provide assistance ge tting out of bed and with ambulation. Provide assistive devices. - Stroke Assess/ Monitor and maintain patient pain level. Assess/ Monitor patient blood pressure. - Bleeding Assess/ Monitor pt for injury. Maintain pt safety. INTERVENTIONS - Pain Anticipate the need for pain medication for optimal pain managment. Assess/Monitor pt pain and treat with prescribed pain medications. Educate pt on relaxation techniques and deep breathing. Non pharmac ological pain management. Monitor for headaches. - Multiple Trauma Fractures Open/Closed Aggressive PT/OT. Assess the integrity of the external fixation device. Support fracture site with pi llows or folded blankets. Maintain a neutral position of the affected part with sandbags, splints, tr ochanter roll, footboard. Maintain bed rest or limb rest as indicated. Provide support of joints abov e and below the fracture site, especially when moving and turning. Assess/Monitor pt pain and treat w ith prescribed pain medications. Assess/monitor for s/s of infection. Maintain extremity elevation to minimize edema. Wound management. - Hypertension Implement healthy diet. Assess/ Monitor patient B/P and treat with prescribed medications. Increase p hysical activity. - RA Provide a variety of comfort measures. Administer anti-inflammatory, analgesic, and slow-actinganti rheumatic medications as prescribed. Facilitate development of appropriate activity/rest schedule. En courage adherence to the treatment program. Emphasize range of motion of affected joints; promoteus e of assistive ambulatory devices; explain use of safefootwear; use individual appropriate position ing/posture. Assist to identify environmental barriers. - Anemia Anticipate the need for transfusion given pt hx. Monitor pt labs. Treat with IV medications and PETE. - Type 2 Diabetes Assess LE for temperature, pulses, color, and sensation. Assess for signs of hyperglycemia. Assess fo r signs of hypoglycemia. Monitor blood glucose and effectiveness of medications/Insulin. Promote prop er diet. PATIENT COULD BE AT RISK FOR COMPLICATIONS FROM ADVERSE MEDICAL CONDITIONS DUE TO HIS/HER COMORBIDITI ES AND THE RIGORS OF THE INTENSIVE REHABILLITATION PROGRAM. METHODS OR INTERVENTIONS TO AVOID COMPLIC ATIONS INCLUDE: - Bleeding Assess lab values and manage abnormalities. Nursing to teach precautions for anti-coagulation therapy . Wound to be assessed every shift. - Infection Clinical staff to assess and manage the signs and symptoms of infection including fever, redness, war mth, etc. - Urinary Tract Infection - Falls Patient will be evaluated for Fall Precautions and will be placed on Fall Precautions as indicated pe r protocol. - Skin Breakdown Nursing will assess skin daily using assessment tool and will place on Skin Breakdown Precautions as indicated per protocol. - Pain Clinical staff may employ non-medication methods such as massage, distraction, decrease stimulus, etc . as needed. Clinical staff will assess patient's pain level every shift per protocol to assess and e nsure pain management effectiveness. Medications will be given and the pain level re-assessed. PRELIMINARY PLAN OF CARE: - Physical Therapy Patient needs Physical Therapy for a daily minimum of 1.5 hours at least 5 out of 7 days, to improve: Mobility, Strengthening, Transfers, Stretching, ROM, Endurance, Ability to manage stairs, Gait, and Balance. - Rehabilitation Nursing Patient requires 24x7 Rehabilitation Nursing for: Pain Issues, Identifying and preventing risk factor s, Monitoring and reporting current medical conditions, Assisting with ambulation and transfer, David ting with all ADL-s, Teaching patients about disease process and medications, Family teaching, Provid ing safe environment, Bowel and Bladder Issues, Skin Integrity, and Medication Management. Patient needs [employer] and/or Case Management for: Discharge Planning, Arranging Home Equipmen t or Services, and Family Interventions. - Dietary and Nutrition Services Patient needs Dietary and Nutrition Services for: Adequate Nutrition, Nutritional Supplements, and Nu tritional Education. - Occupational Therapy Patient needs Occupational Therapy for a daily minimum of 1.5 hours at least 5 out of 7 days, to impr ove Activities of Daily Living, including: Eating, Grooming, Bathing, Dressing, Toileting, Toilet Tra nsfers, Community Reintegration, Higher functional activities, Adaptive Equipment, Splinting, Househo ld Tasks, and Other activities as determined. QI SCORES: - Self-Care A. Eating 05-Setup or clean-up assistance B. Oral hygiene 03-Partial/moderate assistance C. Toileting hygiene 02-Substantial/maximal assistance E. Shower/bathe self 02-Substantial/maximal assistance F. Upper body dressing 03-Partial/moderate assistance G. Lower body dressing 02-Substantial/maximal assistance H. Putting on/taking off footwear 02-Substantial/maximal assistance - Mobility A. Roll left and right 02-Substantial/maximal assistance B. Sit to lying 03-Partial/moderate assistance C. Lying to sitting on side of bed 03-Partial/moderate assistance D. Sit to stand 03-Partial/moderate assistance E. Chair/zug-mv-[id number] transfer 01-Dependent F. Toilet transfer 01-Dependent G. Car transfer 88-Not attempted due to medical condition or safety concerns I. Walk 10 feet 88-Not attempted due to medical condition or safety concerns J. Walk 50 feet with two turns 88-Not attempted due to medical condition or safety concerns K. Walk 150 feet 88-Not attempted due to medical condition or safety concerns L. Walking 10 feet on uneven surfaces 88-Not attempted due to medical condition or safety concerns M. 1 step (curb) 88-Not attempted due to medical condition or safety concerns N. 4 steps 88-Not attempted due to medical condition or safety concerns O. 12 steps 88-Not attempted due to medical condition or safety concerns P. Picking up object 88-Not attempted due to medical condition or safety concerns R. Wheel 50 feet with two turns 09-Not applicable S. Wheel 150 feet 09-Not applicable - Bladder and Bowel Bladder continence 0-Always continent Bowel continence 0-Always continent POTENTIAL FUNCTIONAL GOALS FOR PATIENT TO ACHIEVE BY DISCHARGE: - Safety Precaution Patient will remain free from falls or injury at time of discharge. - Bed Mobility Patient will perform bed mobility at 4-Chaka level of assistance. - Transfers Patient will complete transfers from bed to chair at 4-Chaka level of assistance. - Mobility Patient will ambulate 150 ft with 4-Chaka level of assistance with RW. PATIENT REHAB POTENTIAL Jaun José LERNER is able and expected to receive 3 hours of individualized therapy daily on at least 5 of every 7 days Juan José LERNER's prognosis for significant practical improvement within a reasonable period of time appe ars Good Expected level of measurable improvement will be of a practical value to Juan José LERNER's functional cap acity or adaptations to impairments Has a viable Discharge Plan Medically appropriate; condition is sufficiently stable to participate in intensive rehab program DISCHARGE PLAN: - Estimated Length of Stay (days) 13. - Consensus on plan Discharge plan has been discussed with primary caregiver. Patient/Family is in agreement with the alicia n. Primary caregiver is in agreement with the plan. - Patient/Family Goals Return home independently. - Planned Living Setting Upon Discharge Home, to live alone. Transitional Living. Primary caregiver: Pt self. CONCLUSION ON REHABILITATION NECESSITY: I have evaluated patient's pre-admission functional status and, comparing it to the patient's post-ad mission functional status now, I conclude that the pre-admission assessment was accurate. Patient's c ondition on admission supports the medical necessity of admission to [facility]. It is safe to proceed with patient's therapy program. SIGNATURE PANEL: (CDT)
[2022-01-06] MEDS: DOCUSATE NA/SENNA CONC 1 TAB PO SCH (20:00)
[2022-01-07 05:21] LABS: Absolute Lymphocytes (CBC) 2.3 K/uL (0.7-4.9); Hematocrit 35.1 % (36.0-45.0); Lymphocytes % 38.2 % (15.3-44.8); MCV 91.3 fL (80-100); MPV 9.3 fL (7.6-11.3); RBC Red Blood Cell Count 3.84 M/uL (3.86-4.86)
[2022-01-07] MEDS: atenoloL 25 MG TAB PO SCH (05:29)
[2022-01-07] MEDS: LEVOTHYROXINE SOD 0.05 MG TABLET PO SCH (05:29)
[2022-01-07 05:45] LABS: Albumin 2.9 g/dL (3.4-5.0); Magnesium 2.3 mg/dL (1.8-2.4); Potassium 4.1 mmol/L (3.5-5.1); Prealbumin 20.6 mg/dL (20-40)
[2022-01-07] MEDS ORDERED: BACITRACIN/POLYMYXIN TOPICAL OINT TOP SCH (08:00)
[2022-01-07] MEDS: DOCUSATE NA/SENNA CONC 1 TAB PO SCH ×3 (08:00→20:00)
[2022-01-07] MEDS: ACETAMINOPHEN 500 MG TAB PO SCH ×3 (08:16→23:26)
[2022-01-07] MEDS: VALSARTAN 160 MG TAB PO SCH (09:18)
[2022-01-07] MEDS: FOLIC ACID 1 MG TABLET PO SCH (09:19)
[2022-01-07] MEDS: ENOXAPARIN 40 MG/0.4 ML SQ SCH (09:19)
[2022-01-07] MEDS: METFORMIN ER 500 MG TAB PO SCH (09:19)
[2022-01-07] MEDS: AMLODIPINE 10 MG TAB PO SCH (09:19)
[2022-01-07] MEDS: BACI/NEOMYCIN/POLY OINT 15GM TOP SCH (09:20)
[2022-01-07] MEDS: METHOTREXATE 2.5 MG TAB PO SCH (09:21)
[2022-01-07] MEDS ORDERED: D50W 25 GM/50 ML SYRINGE IV PRN (16:55)
[2022-01-07] MEDS ORDERED: GLUCAGON 1 MG/VIAL IM PRN (16:55)
[2022-01-07] MEDS ORDERED: D10W 125 ML IV PRN (17:11)
[2022-01-07] MEDS: INSULIN -REGULAR HUMAN 50 UNIT/0.5 ML ML SQ SCH (20:36)
[2022-01-08 01:18] LABS: Calcium Oxalate Crystals- Ur Few /HPF (None Seen); Specific Gravity 1.019 (1.005-1.030); Urine Bacteria <20 /HPF (<20); Urine Bilirubin NEGATIVE (Negative); Urine Blood Negative (Negative); Urine Clarity Clear (Clear); Urine Color Yellow (Yellow); Urine Glucose NEGATIVE (Negative); Urine Mucus Slight /HPF (None Seen); Urine Protein NEGATIVE (Negative); Urine RBC <5 /HPF (None Seen); Urine Urobilinogen Normal (Normal); Urine pH 6.5 (5.0-7.0)
[2022-01-08] MEDS: LEVOTHYROXINE SOD 0.05 MG TABLET PO SCH (05:08)
[2022-01-08] MEDS: atenoloL 25 MG TAB PO SCH (05:08)
[2022-01-08] MEDS: INSULIN -REGULAR HUMAN 50 UNIT/0.5 ML ML SQ SCH ×4 (07:30→21:00)
[2022-01-08] MEDS: FOLIC ACID 1 MG TABLET PO SCH (07:57)
[2022-01-08] MEDS: ENOXAPARIN 40 MG/0.4 ML SQ SCH (07:57)
[2022-01-08] MEDS: DOCUSATE NA/SENNA CONC 1 TAB PO SCH (07:58)
[2022-01-08] MEDS: AMLODIPINE 10 MG TAB PO SCH ×2 (08:00→13:26)
[2022-01-08] MEDS: VALSARTAN 160 MG TAB PO SCH (08:00)
[2022-01-08] MEDS: METFORMIN ER 500 MG TAB PO SCH (08:55)
[2022-01-08] MEDS ORDERED: DOCUSATE NA/SENNA CONC 1 TAB PO PRN (08:59)
[2022-01-08] MEDS: BACI/NEOMYCIN/POLY OINT 15GM TOP SCH (09:16)
[2022-01-09] MEDS: atenoloL 25 MG TAB PO SCH (05:13)
[2022-01-09] MEDS: LEVOTHYROXINE SOD 0.05 MG TABLET PO SCH (05:13)
[2022-01-09] MEDS: ENOXAPARIN 40 MG/0.4 ML SQ SCH (07:08)
[2022-01-09] MEDS: INSULIN -REGULAR HUMAN 50 UNIT/0.5 ML ML SQ SCH ×4 (07:12→20:11)
[2022-01-09] MEDS: AMLODIPINE 10 MG TAB PO SCH (08:00)
[2022-01-09] MEDS: VALSARTAN 160 MG TAB PO SCH ×2 (08:00→20:10)
[2022-01-09] MEDS: FOLIC ACID 1 MG TABLET PO SCH (08:19)
[2022-01-09] MEDS: METFORMIN ER 500 MG TAB PO SCH (08:23)
[2022-01-09] MEDS: BACI/NEOMYCIN/POLY OINT 15GM TOP SCH (08:26)
[2022-01-09] MEDS: ACETAMINOPHEN 500 MG TAB PO PRN ×2 (08:48→21:57)
[2022-01-09 15:42] LABS: Absolute Lymphocytes (CBC) 2.1 K/uL (0.7-4.9); Hematocrit 37.7 % (36.0-45.0); Lymphocytes % 23.2 % (15.3-44.8); MCV 92.4 fL (80-100); MPV 9.8 fL (7.6-11.3); RBC Red Blood Cell Count 4.08 M/uL (3.86-4.86)
--- NOTE | 2022-01-09 16:03 | RAD REPORT ---
EXAM DESCRIPTION: RAD - Tib Fib Left - 01/09/2022 3:49 pm CLINICAL HISTORY: Tib-fib fracture, external fixator, losing blended fixator sites COMPARISON: None. FINDINGS: Total knee prosthesis in place only partially imaged. Bones are osteopenic. An acute knee prosthesis finding not suspected. External fixators are in place. At the midshaft tibia fixation site no bone or hardware unexpected fi nding. Numerous surgical clips are present in the soft tissues. Medial malleolus and distal fibula in completely healed fractures are noted. Prominent callus formation around the medial malleolus. No geoffrey ss abnormality seen at the calcaneus fixator site. Of tissue edema changes are present. No air or unexpected foreign body in the soft tissues no pathol ogic or destructive process seen. IMPRESSION: No suspicious bone, soft tissue or hardware abnormality at the proximal or distal fixati on sites. Incompletely healed fractures of the medial malleolus and distal fibula.
--- NOTE | 2022-01-09 18:33 | R.PN ---
PROGRESS NOTES ENCOUNTER DATE AND TIME: 01/09/2022 18:25 (CDT) NAME YASMIN LERNER DATE OF : 1940 DATE OF ADMISSION: 01/06/2022 13:06 (CDT) Left Open bimalleolar ankle fracture with intra-articular bony fragmentsLeft closed displaced fractur e of the medial condyle of the femurCHIEF COMPLAINT: Multiple traumatic left lower extremity fractures SUBJECTIVE: Pt denied any Shortness of Breath. Pt denied any depression. CBC with differential is normal. Glucose 103 to 140, prealbumin 20.6. Covid-19 is negative 01/06/22. Self-propelled wheelchair 100' with moderate assistance. She has mild bleeding at left leg surgical sites with external wellington fixation. VITAL SIGNS Temperature: 97.8 F SBP/DBP: 108/64 Pulse: 80 Resp: 14 MEDICATION ALLERGIES: No Known Drug Allergies (NKDA) ENVIRONMENTAL ALLERGIES: - Substance Allergies None Known - Other Allergies None Known NURSING: - Shower allowing shower - Lab Results blood Sugar Check ACHS - Skin care per protocol PRECAUTIONS: - Weight Bearing Precaution NWB left LE ACTIVITIES OOB only with supervision THERAPIES: - Dietary and Nutrition Adequate Nutrition. Nutritional Education. Nutritional Supplements. - Occupational Therapy Cognitive Retraining. Patient needs Occupational Therapy for a daily minimum of 1.5 hours at least 5 out of 7 days, to improve Activities of Daily Living, including: Eating, Grooming, Bathing, Dressing, Toileting, Toilet Transfers, Community Reintegration, Higher functional activities, Adaptive Equipme nt, Splinting, Household Tasks, and Other activities as determined. Visual Perceptual Training. - Physical Therapy Patient needs Physical Therapy for a daily minimum of 1.5 hours at least 5 out of 7 days, to improve: Mobility, Strengthening, Transfers, Stretching, ROM, Endurance, Ability to manage stairs, Gait, and Balance. PHYSICAL EXAM - Gen No apparent distress - Skin Left foot is fixed with rods and left thigh graft donor side with good hemostasis. Normacephalic - Eyes No abnormalities - ENMT No abnormalities - Neck No abnormalities - CVS RRR - Chest No abnormalities - Resp Clear to auscultation - Abd Soft - GI nondistended Deferred - No abnormalities - Ext Left foot is fixed with rods and left thigh graft donor side with good hemostasis. - MSK 4+/5 weakness in left lower extremity - Neuro 4/5 strength left lower extremity. - Psych No abnormalities ASSESSMENT: Her impairment category is Orthopaedic Disorders 08 - Major Multiple Fractures (08.4).Pt. is a 81 yo HF.Pre-morbidly, Pt. was independent/mod-I in Locomotion and Self-Care; and she had good Safety Awar eness, Transfers Control, Balance, and Endurance.Currently, she has deficits of Locomotion, Safety Aw areness, Balance, Transfers Control, Self-Care, and Endurance.Pt. is now referred to [facility] for acute in-patient rehabilitation in order to maximize patient's functional indep endence in activities of daily living, strength, ROM, and mobility.- Rehab Goal Patient has realistic goal of being discharged at assistance level 6-Jase to reside at Home with Pt self. On 12/11/2021 she was admitted to [facility] with diagnosis Left Open bimalleolar ankle fracture with intra-articular bony fragments.MDM/PLAN: - Physical Therapy Decreased range of motion - to improve, our physical therapists will perform initial evaluation of p t's status upon admission and devise an individualized program for increasing patient's Range of Claude on. Inability to transfer - to improve, our physical therapists will perform initial evaluation of pt's status upon admission and devise an individualized program for Bed mobility Need for home safety evaluation - to improve, our physical therapists will perform initial evaluatio n of pt's status upon admission and devise an individualized program for Home Evaluation Need in caregiver upon discharge - to improve, our physical therapists will perform initial evaluati on of pt's status upon admission and devise an individualized program for Caregiver Training New precaution - to improve, our physical therapists will perform initial evaluation of pt's status upon admission and devise an individualized program for Patient precaution education Pain - to improve, our physical therapists will perform initial evaluation of pt's status upon admis nellie and devise an individualized program for Modalities Poor balance - to improve, our physical therapists will perform initial evaluation of pt's status up on admission and devise an individualized program for Balance Training Poor endurance - to improve, our physical therapists will perform initial evaluation of pt's status upon admission and devise an individualized program for Endurance Training Achieving independence - to improve, our physical therapists will perform initial evaluation of pt's status upon admission and devise an individualized program for Community Reintegration Activities - Occupational Therapy ADL deficits - to improve, our occupation therapists will perform initial evaluation of pt's status upon admission and devise an individualized program for Bathing, Bed mobility, Community Reintegratio n, Cooking, Dressing, Eating, Fine Motor Skills, Grooming, Homemaking, Kitchen Mobility, Laundry, Pat ient Education, Safety Awareness, Splinting - Positioning, Transfers(Toilet, Tub, Shower), and Wheel Chair Management Need for patient care technician - to improve, our occupation therapists will perform initial evaluation of pt's status upon admission and devise an individualized program for Caregiver Training - Other See attached MAR (Medication Administration Record) - Diet Type Continue Regular - Diet - Liquid Texture Continue Regular - Tube Feed Continue N/A - Lab Results blood Sugar Check ACHS - Weight Bearing Precaution NWB left LE - Skin care per protocol - Diet - Solid Texture Continue Regular - Shower allowing shower FUNCTIONAL STATUS: UPDATED AT WEEKLY TEAM CONFERENCE - Bladder Same accident frequency: 7-Ind - No accidents in the past 7 days - Bowel Same accident frequency: 7-Ind - No accidents in the past 7 days - Walking Same score based on distance walked: 0(N/A) - Wheelchair Same score based on distance traveled: 0(N/A) FUNCTIONAL STATUS: - Self-Care A. Eating Ind B. Grooming Jase C. Bathing modA D. Dressing - Upper sup E. Dressing - Lower modA F. Toileting Chaka - Sphincter Control G. Bladder control Jase H. Bowel control Jase - Transfers Control I. Bed/Chair/Wheelchair modA J. Toilet modA K. Tub/Shower modA - Locomotion L. Walk/Wheelchair (B) modA M. Stairs Dep - Communication N. Comprehension (B) Jase O. Expression (B) Jase - Social Cognition P. Social Interaction Ind Q. Problem Solving Jase R. Memory Jase - Endurance Fair - Balance Fair - Safety Awareness Fair QI SCORES: - Self-Care A. Eating 05-Setup or clean-up assistance B. Oral hygiene 03-Partial/moderate assistance C. Toileting hygiene 02-Substantial/maximal assistance E. Shower/bathe self 02-Substantial/maximal assistance F. Upper body dressing 03-Partial/moderate assistance G. Lower body dressing 02-Substantial/maximal assistance H. Putting on/taking off footwear 02-Substantial/maximal assistance - Mobility A. Roll left and right 02-Substantial/maximal assistance B. Sit to lying 03-Partial/moderate assistance C. Lying to sitting on side of bed 03-Partial/moderate assistance D. Sit to stand 03-Partial/moderate assistance E. Chair/czm-in-tmpto transfer 01-Dependent F. Toilet transfer 01-Dependent G. Car transfer 88-Not attempted due to medical condition or safety concerns I. Walk 10 feet 88-Not attempted due to medical condition or safety concerns J. Walk 50 feet with two turns 88-Not attempted due to medical condition or safety concerns K. Walk 150 feet 88-Not attempted due to medical condition or safety concerns L. Walking 10 feet on uneven surfaces 88-Not attempted due to medical condition or safety concerns M. 1 step (curb) 88-Not attempted due to medical condition or safety concerns N. 4 steps 88-Not attempted due to medical condition or safety concerns O. 12 steps 88-Not attempted due to medical condition or safety concerns P. Picking up object 88-Not attempted due to medical condition or safety concerns R. Wheel 50 feet with two turns 09-Not applicable S. Wheel 150 feet 09-Not applicable - Bladder and Bowel Bladder continence 0-Always continent Bowel continence 0-Always continent CURRENT FUNC. DEFICITS: Self-Care and Mobility SIGNATURE PANEL: (CDT)
[2022-01-09] MEDS ORDERED: VALSARTAN 160 MG TAB PO SCH (20:00)
[2022-01-09] MEDS: AMLODIPINE 5 MG TAB PO SCH (20:10)
[2022-01-10] MEDS: atenoloL 25 MG TAB PO SCH (05:15)
[2022-01-10] MEDS: LEVOTHYROXINE SOD 0.05 MG TABLET PO SCH (05:15)
[2022-01-10] MEDS: INSULIN -REGULAR HUMAN 50 UNIT/0.5 ML ML SQ SCH ×4 (07:30→20:29)
[2022-01-10] MEDS: METFORMIN ER 500 MG TAB PO SCH (07:57)
[2022-01-10] MEDS: AMLODIPINE 5 MG TAB PO SCH ×2 (07:57→19:20)
[2022-01-10] MEDS: VALSARTAN 160 MG TAB PO SCH ×2 (07:58→19:20)
[2022-01-10] MEDS: ENOXAPARIN 40 MG/0.4 ML SQ SCH (07:58)
[2022-01-10] MEDS: FOLIC ACID 1 MG TABLET PO SCH (07:58)
[2022-01-10] MEDS: BACI/NEOMYCIN/POLY OINT 15GM TOP SCH (07:59)
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
[2022-01-10] MEDS: ACETAMINOPHEN 500 MG TAB PO PRN (19:20)
[2022-01-11] MEDS: LEVOTHYROXINE SOD 0.05 MG TABLET PO SCH (05:16)
[2022-01-11] MEDS: atenoloL 25 MG TAB PO SCH (05:16)
[2022-01-11] MEDS: ENOXAPARIN 40 MG/0.4 ML SQ SCH (07:14)
[2022-01-11] MEDS: INSULIN -REGULAR HUMAN 50 UNIT/0.5 ML ML SQ SCH ×4 (07:30→20:22)
[2022-01-11] MEDS: VALSARTAN 160 MG TAB PO SCH ×2 (07:42→19:45)
[2022-01-11] MEDS: AMLODIPINE 5 MG TAB PO SCH ×2 (07:42→19:44)
[2022-01-11] MEDS: METFORMIN ER 500 MG TAB PO SCH (07:42)
[2022-01-11] MEDS: FOLIC ACID 1 MG TABLET PO SCH (07:42)
[2022-01-11] MEDS: BACI/NEOMYCIN/POLY OINT 15GM TOP SCH (08:00)
[2022-01-11] MEDS: LOPERAMIDE HCL 2 MG CAPSULE PO PRN ×2 (13:25→19:45)
[2022-01-11] MEDS: JUVEN PACKET PO SCH (19:45)
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
[2022-01-12 04:35] LABS: Absolute Lymphocytes (CBC) 2.5 K/uL (0.7-4.9); Hematocrit 31.5 % (36.0-45.0); Lymphocytes % 37.6 % (15.3-44.8); MCV 91.9 fL (80-100); MPV 10.1 fL (7.6-11.3); RBC Red Blood Cell Count 3.42 M/uL (3.86-4.86)
[2022-01-12 04:45] LABS: Albumin 2.8 g/dL (3.4-5.0); Potassium 3.6 mmol/L (3.5-5.1); Prealbumin 19.6 mg/dL (20-40)
[2022-01-12] MEDS: atenoloL 25 MG TAB PO SCH (05:22)
[2022-01-12] MEDS: LEVOTHYROXINE SOD 0.05 MG TABLET PO SCH (05:22)
[2022-01-12] MEDS: ACETAMINOPHEN 500 MG TAB PO PRN ×2 (05:23→12:35)
[2022-01-12] MEDS: ENOXAPARIN 40 MG/0.4 ML SQ SCH (07:27)
[2022-01-12] MEDS: PANTOPRAZOLE 40MG TABLET PO SCH (07:27)
[2022-01-12] MEDS: INSULIN -REGULAR HUMAN 50 UNIT/0.5 ML ML SQ SCH ×4 (07:30→20:53)
[2022-01-12] MEDS: AMLODIPINE 5 MG TAB PO SCH ×2 (08:00→20:52)
[2022-01-12] MEDS: VALSARTAN 160 MG TAB PO SCH ×2 (08:00→20:52)
[2022-01-12] MEDS: FOLIC ACID 1 MG TABLET PO SCH (08:07)
[2022-01-12] MEDS: METFORMIN ER 500 MG TAB PO SCH (08:07)
[2022-01-12] MEDS: JUVEN PACKET PO SCH ×2 (08:08→20:52)
[2022-01-12] MEDS: BACI/NEOMYCIN/POLY OINT 15GM TOP SCH (08:08)
[2022-01-12] MEDS: CRANBERRY FRUIT EXTRACT 200 MG CAP PO SCH (20:52)
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
[2022-01-12] MEDS: LOPERAMIDE HCL 2 MG CAPSULE PO PRN (23:38)
[2022-01-13] MEDS: atenoloL 25 MG TAB PO SCH (05:20)
[2022-01-13] MEDS: LEVOTHYROXINE SOD 0.05 MG TABLET PO SCH (05:20)
[2022-01-13] MEDS: INSULIN -REGULAR HUMAN 50 UNIT/0.5 ML ML SQ SCH ×4 (07:30→21:00)
[2022-01-13] MEDS: CRANBERRY FRUIT EXTRACT 200 MG CAP PO SCH ×2 (09:05→19:19)
[2022-01-13] MEDS: ENOXAPARIN 40 MG/0.4 ML SQ SCH (09:05)
[2022-01-13] MEDS: BACI/NEOMYCIN/POLY OINT 15GM TOP SCH (09:06)
[2022-01-13] MEDS: AMLODIPINE 5 MG TAB PO SCH ×2 (09:06→19:20)
[2022-01-13] MEDS: PANTOPRAZOLE 40MG TABLET PO SCH (09:06)
[2022-01-13] MEDS: METFORMIN ER 500 MG TAB PO SCH (09:06)
[2022-01-13] MEDS: VALSARTAN 160 MG TAB PO SCH ×2 (09:07→19:19)
[2022-01-13] MEDS: FOLIC ACID 1 MG TABLET PO SCH (09:07)
[2022-01-13] MEDS: JUVEN PACKET PO SCH ×2 (09:08→19:20)
[2022-01-13] MEDS: ACETAMINOPHEN 500 MG TAB PO PRN (09:12)
[2022-01-13] MEDS: LOPERAMIDE HCL 2 MG CAPSULE PO PRN (09:15)
--- NOTE | 2022-01-13 10:27 | P.RH.PN ---
Estimated Length of Stay: 8 ot 17 days Expected Discharge Date: 01/24/22 Discharge Disposition Plan: Home Family Support: Yes [employer] Goal: Mobility, Transfers, Self Care Vital Signs: Last Vital Signs Temp 97.8 F 01/13/22 07:38 Pulse 70 01/13/22 09:07 Resp 18 01/13/22 07:38 BP 145/64 H 01/13/22 09:07 Pulse Ox 96 01/13/22 07:38 Laboratory: Laboratory Last Values WBC 6.70 K/uL (4.3-10.9) 01/12/22 04:03 RBC 3.42 M/uL (3.86-4.86) L 01/12/22 04:03 Hgb 10.4 g/dL (12.0-15.0) L 01/12/22 04:03 Hct 31.5 % (36.0-45.0) L 01/12/22 04:03 MCV 91.9 fL (80-100) 01/12/22 04:03 MCH 30.3 pg (27.0-35.0) 01/12/22 04:03 MCHC 32.9 g/dL (32.0-36.0) 01/12/22 04:03 RDW 16.0 % (12.1-15.2) H 01/12/22 04:03 Plt Count 219 K/uL (152-406) 01/12/22 04:03 MPV 10.1 fL (7.6-11.3) 01/12/22 04:03 Neutrophils % 48.3 % (41.7-73.7) 01/12/22 04:03 Lymphocytes % 37.6 % (15.3-44.8) 01/12/22 04:03 Monocytes % 10.6 % (3.3-12.3) 01/12/22 04:03 Eosinophils % 2.3 % (0-4.4) 01/12/22 04:03 Basophils % 1.2 % (0-1.3) 01/12/22 04:03 Absolute Neutrophils 3.2 K/uL (1.8-8.0) 01/12/22 04:03 Absolute Lymphocytes 2.5 K/uL (0.7-4.9) 01/12/22 04:03 Absolute Monocytes 0.7 K/uL (0.1-1.3) 01/12/22 04:03 Absolute Eosinophils 0.2 K/uL (0-0.5) 01/12/22 04:03 Absolute Basophils 0.1 K/uL (0-0.5) 01/12/22 04:03 Sodium 137 mmol/L (136-145) 01/12/22 04:03 Potassium 3.6 mmol/L (3.5-5.1) 01/12/22 04:03 Chloride 107 mmol/L (98-107) 01/12/22 04:03 Carbon Dioxide 21 mmol/L (21-32) 01/12/22 04:03 Anion Gap 12.6 mEq/L (5.0-15.0) 01/12/22 04:03 BUN 22 mg/dL (7-18) H 01/12/22 04:03 Creatinine 0.63 mg/dL (0.55-1.3) 01/12/22 04:03 Est GFR (CKD-EPI) 89 ml/min (=/>90) L 01/12/22 04:03 Glucose 154 mg/dL (74-106) H 01/12/22 04:03 POC Glucose 139 mg/dL (65-120) H 01/13/22 08:19 Calcium 8.9 mg/dL (8.5-10.1) 01/12/22 04:03 Magnesium 2.0 mg/dL (1.8-2.4) 01/12/22 04:03 Albumin 2.8 g/dL (3.4-5.0) L 01/12/22 04:03 Prealbumin 19.6 mg/dL (20-40) L 01/12/22 04:03 Urine Color Yellow (Yellow) 01/08/22 00:20 Urine Clarity Clear (Clear) 01/08/22 00:20 Urine pH 6.5 (5.0-7.0) 01/08/22 00:20 Ur Specific [place] 1.019 (1.005-1.030) 01/08/22 00:20 Glucose (UA)(Auto) Negative (Negative) 01/08/22 00:20 Urine Ketones Negative (Negative) 01/08/22 00:20 Urine Blood Negative (Negative) 01/08/22 00:20 Urine Nitrite Negative (Negative) 01/08/22 00:20 Urine Bilirubin Negative (Negative) 01/08/22 00:20 Urine Urobilinogen Normal (Normal) 01/08/22 00:20 Ur Leukocyte Esterase 250 [place]/uL (Negative) H 01/08/22 00:20 Urine RBC <5 /HPF (None Seen) 01/08/22 00:20 Urine WBC <5 /HPF (<5) 01/08/22 00:20 Ur Squamous Epith Cells <5 /HPF (None Seen) 01/08/22 00:20 Calcium Oxalate Crystal Few /HPF (None Seen) 01/08/22 00:20 Urine Bacteria <20 /HPF (<20) 01/08/22 00:20 Urine Mucus Slight /HPF (None Seen) 01/08/22 00:20 Urine Total Protein Negative (Negative) 01/08/22 00:20 SARS-CoV-2 Rap RNA(RT-PCR) Negative (NEGATIVE) 01/13/22 05:00 Weight: 178 lb Wound Present: Yes Closed Surgical Incision Present: Yes Negative Pressure Wound Therapy Present: No Physician Update: She is making good overall progress. Vitals are stable. Functional incontenent. She lives alone and is nonweight bearing. Hypertention is controlled. She has mild oozing at the surgical site. She is diabetic with fair blood sugar control. Summary: Patient's care plan and terminal gauger goals have been reviewed and revised as necessary. Please see the Rehabilitation Signature page for all necessary signatures.
[2022-01-14] MEDS: LEVOTHYROXINE SOD 0.05 MG TABLET PO SCH (05:24)
[2022-01-14] MEDS: atenoloL 25 MG TAB PO SCH (05:24)
[2022-01-14] MEDS: ACETAMINOPHEN 500 MG TAB PO PRN ×2 (06:53→19:27)
[2022-01-14] MEDS: PANTOPRAZOLE 40MG TABLET PO SCH (06:54)
[2022-01-14] MEDS: INSULIN -REGULAR HUMAN 50 UNIT/0.5 ML ML SQ SCH ×4 (07:30→21:00)
[2022-01-14] MEDS: ENOXAPARIN 40 MG/0.4 ML SQ SCH (07:40)
[2022-01-14] MEDS: METHOTREXATE 2.5 MG TAB PO SCH (07:47)
[2022-01-14] MEDS: CRANBERRY FRUIT EXTRACT 200 MG CAP PO SCH ×2 (07:47→19:26)
[2022-01-14] MEDS: VALSARTAN 160 MG TAB PO SCH ×2 (07:47→19:27)
[2022-01-14] MEDS: FOLIC ACID 1 MG TABLET PO SCH (07:47)
[2022-01-14] MEDS: AMLODIPINE 5 MG TAB PO SCH ×2 (07:48→19:27)
[2022-01-14] MEDS: JUVEN PACKET PO SCH ×2 (07:48→19:28)
[2022-01-14] MEDS: METFORMIN ER 500 MG TAB PO SCH (07:49)
[2022-01-14] MEDS: BACI/NEOMYCIN/POLY OINT 15GM TOP SCH (09:26)
[2022-01-14] MEDS: LOPERAMIDE HCL 2 MG CAPSULE PO PRN (15:34)
[2022-01-15] MEDS: LEVOTHYROXINE SOD 0.05 MG TABLET PO SCH (05:27)
[2022-01-15] MEDS: atenoloL 25 MG TAB PO SCH (05:27)
[2022-01-15] MEDS: PANTOPRAZOLE 40MG TABLET PO SCH (07:21)
[2022-01-15] MEDS: ENOXAPARIN 40 MG/0.4 ML SQ SCH (07:22)
[2022-01-15] MEDS: INSULIN -REGULAR HUMAN 50 UNIT/0.5 ML ML SQ SCH ×3 (07:30→20:08)
[2022-01-15] MEDS: VALSARTAN 160 MG TAB PO SCH ×2 (07:53→19:39)
[2022-01-15] MEDS: AMLODIPINE 5 MG TAB PO SCH ×2 (07:53→19:39)
[2022-01-15] MEDS: FOLIC ACID 1 MG TABLET PO SCH (07:54)
[2022-01-15] MEDS: METFORMIN ER 500 MG TAB PO SCH (07:54)
[2022-01-15] MEDS: CRANBERRY FRUIT EXTRACT 200 MG CAP PO SCH ×2 (07:54→19:39)
[2022-01-15] MEDS: BACI/NEOMYCIN/POLY OINT 15GM TOP SCH (07:55)
[2022-01-15] MEDS: JUVEN PACKET PO SCH ×2 (07:55→20:00)
[2022-01-15] MEDS ORDERED: GLUCAGON 1 MG/VIAL IM PRN (12:15)
[2022-01-15] MEDS ORDERED: D50W 25 GM/50 ML SYRINGE IV PRN (12:15)
[2022-01-15] MEDS: ACETAMINOPHEN 500 MG TAB PO PRN (14:00)
[2022-01-15] MEDS: LOPERAMIDE HCL 2 MG CAPSULE PO PRN (14:13)
[2022-01-15] MEDS ORDERED: INSULIN -REGULAR HUMAN 50 UNIT/0.5 ML ML SQ SCH (16:30)
[2022-01-16] MEDS: LEVOTHYROXINE SOD 0.05 MG TABLET PO SCH (05:02)
[2022-01-16] MEDS: atenoloL 25 MG TAB PO SCH (05:02)
[2022-01-16] MEDS: INSULIN -REGULAR HUMAN 50 UNIT/0.5 ML ML SQ SCH ×2 (07:19→20:10)
[2022-01-16] MEDS: JUVEN PACKET PO SCH ×2 (08:00→20:00)
[2022-01-16] MEDS: VALSARTAN 160 MG TAB PO SCH ×2 (08:47→20:09)
[2022-01-16] MEDS: PANTOPRAZOLE 40MG TABLET PO SCH (08:48)
[2022-01-16] MEDS: METFORMIN ER 500 MG TAB PO SCH (08:48)
[2022-01-16] MEDS: FOLIC ACID 1 MG TABLET PO SCH (08:48)
[2022-01-16] MEDS: ENOXAPARIN 40 MG/0.4 ML SQ SCH (08:48)
[2022-01-16] MEDS: AMLODIPINE 5 MG TAB PO SCH ×2 (08:48→20:10)
[2022-01-16] MEDS: CRANBERRY FRUIT EXTRACT 200 MG CAP PO SCH ×2 (08:48→20:09)
[2022-01-16] MEDS: BACI/NEOMYCIN/POLY OINT 15GM TOP SCH (08:49)
[2022-01-16] MEDS: ACETAMINOPHEN 500 MG TAB PO PRN ×2 (11:30→22:01)
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
[2022-01-17] MEDS: atenoloL 25 MG TAB PO SCH (05:02)
[2022-01-17] MEDS: LEVOTHYROXINE SOD 0.05 MG TABLET PO SCH (05:02)
[2022-01-17] MEDS: INSULIN -REGULAR HUMAN 50 UNIT/0.5 ML ML SQ SCH ×2 (07:30→20:21)
[2022-01-17] MEDS: JUVEN PACKET PO SCH ×2 (08:00→19:53)
[2022-01-17] MEDS ORDERED: METFORMIN ER 500 MG TAB PO SCH (08:00)
[2022-01-17] MEDS: BACI/NEOMYCIN/POLY OINT 15GM TOP SCH (08:00)
[2022-01-17] MEDS: PANTOPRAZOLE 40MG TABLET PO SCH (09:08)
[2022-01-17] MEDS: CRANBERRY FRUIT EXTRACT 200 MG CAP PO SCH ×2 (09:08→19:52)
[2022-01-17] MEDS: FOLIC ACID 1 MG TABLET PO SCH (09:08)
[2022-01-17] MEDS: AMLODIPINE 5 MG TAB PO SCH ×2 (09:08→19:52)
[2022-01-17] MEDS: ACETAMINOPHEN 500 MG TAB PO PRN ×2 (09:09→19:52)
[2022-01-17] MEDS: VALSARTAN 160 MG TAB PO SCH ×2 (09:09→19:52)
[2022-01-17] MEDS: METFORMIN HCL 500 MG TAB PO SCH (09:09)
[2022-01-17] MEDS: ENOXAPARIN 30 MG/0.3 ML SQ SCH (09:10)
[2022-01-17] MEDS ORDERED: clonazePAM 0.5 MG TAB PO PRN (19:03)
[2022-01-18] MEDS: atenoloL 25 MG TAB PO SCH (05:09)
[2022-01-18] MEDS: LEVOTHYROXINE SOD 0.05 MG TABLET PO SCH (05:09)
[2022-01-18] MEDS: ENOXAPARIN 30 MG/0.3 ML SQ SCH (07:09)
[2022-01-18] MEDS: PANTOPRAZOLE 40MG TABLET PO SCH (07:09)
[2022-01-18] MEDS: ACETAMINOPHEN 500 MG TAB PO PRN (07:19)
[2022-01-18] MEDS: INSULIN -REGULAR HUMAN 50 UNIT/0.5 ML ML SQ SCH ×2 (07:30→20:00)
[2022-01-18] MEDS: CRANBERRY FRUIT EXTRACT 200 MG CAP PO SCH ×2 (07:48→19:59)
[2022-01-18] MEDS: VALSARTAN 160 MG TAB PO SCH ×2 (07:48→19:59)
[2022-01-18] MEDS: METFORMIN HCL 500 MG TAB PO SCH (07:48)
[2022-01-18] MEDS: AMLODIPINE 5 MG TAB PO SCH ×2 (07:49→20:00)
[2022-01-18] MEDS: FOLIC ACID 1 MG TABLET PO SCH (07:49)
[2022-01-18] MEDS: JUVEN PACKET PO SCH ×2 (07:50→20:00)
[2022-01-18] MEDS: BACI/NEOMYCIN/POLY OINT 15GM TOP SCH (11:54)
[2022-01-18] MEDS: LOPERAMIDE HCL 2 MG CAPSULE PO PRN (14:42)
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
--- NOTE | 2022-01-19 03:34 | PN ---
Date of Progress Note: 01/18/2022 This is a fqqt-gc-mevz visit with patient, Pretty Crook. Subjective: Ms. Crook is doing well. She has no new complaints. Denies any significant pain in the left lower extremity surgical sites. Review of Systems: There are no significant complaints. She had mild nausea earlier and that resolved. Objective: Vital Signs: Blood pressure 135/67, pulse 62, respiratory rate 18, temperature 97.4, oxy gen saturation 100%. General: Ms. Crook is resting comfortably. She had lunch. She has no complaints. Abdomen: Soft. Extremities: Bandages on the left leg have been removed. There is no significant oozing. Surgical site has good hemostasis. The graft donation site on left lower extremity shows no evidence of any i nfection and is healing very well. Laboratory Studies: Reviewed and are stable. Blood sugars did range up to 188 down to 104. X-ray: No new x-rays. Current Functional Status: She was able to self propel with a wheelchair over 187 feet with standby assistance using bilateral upper extremities on a flat surface. She did perform bed mobility in michael tion to the toilet transfers with moderate assistance. Progress with rehabilitation goals: She is making fair overall progress. She is again limited by the nonweightbearing status to left upper extremity and arthritic changes in her upper extremities. Com orbid conditions as stated above. Plan: She will continue with therapy as noted. She does have a discharge date of and on the she has a followup with Plastic Surgery and Orthopedic Surgery as outpatient. The patient is continued with DVT prophylaxis. YANIQUE/KIKA Voice ID: [id number] Report ID: [id number]
[2022-01-19 04:37] LABS: Absolute Lymphocytes (CBC) 2.4 K/uL (0.7-4.9); Hematocrit 31.3 % (36.0-45.0); Lymphocytes % 36.9 % (15.3-44.8); MPV 9.2 fL (7.6-11.3)
[2022-01-19 05:06] LABS: Albumin 2.9 g/dL (3.4-5.0); Magnesium 2.3 mg/dL (1.8-2.4); Potassium 3.9 mmol/L (3.5-5.1); Prealbumin 18.6 mg/dL (20-40)
[2022-01-19] MEDS: atenoloL 25 MG TAB PO SCH (05:21)
[2022-01-19] MEDS: LEVOTHYROXINE SOD 0.05 MG TABLET PO SCH (05:21)
[2022-01-19] MEDS: PANTOPRAZOLE 40MG TABLET PO SCH (06:59)
[2022-01-19] MEDS: ACETAMINOPHEN 500 MG TAB PO PRN (07:00)
[2022-01-19] MEDS: ENOXAPARIN 30 MG/0.3 ML SQ SCH (07:01)
[2022-01-19] MEDS: INSULIN -REGULAR HUMAN 50 UNIT/0.5 ML ML SQ SCH ×2 (07:05→20:02)
[2022-01-19] MEDS: JUVEN PACKET PO SCH (08:00)
[2022-01-19] MEDS: FOLIC ACID 1 MG TABLET PO SCH (08:08)
[2022-01-19] MEDS: CRANBERRY FRUIT EXTRACT 200 MG CAP PO SCH ×2 (08:08→19:40)
[2022-01-19] MEDS: AMLODIPINE 5 MG TAB PO SCH ×2 (08:08→19:40)
[2022-01-19] MEDS: METFORMIN HCL 500 MG TAB PO SCH (08:08)
[2022-01-19] MEDS: VALSARTAN 160 MG TAB PO SCH ×2 (08:09→19:41)
[2022-01-19] MEDS: BACI/NEOMYCIN/POLY OINT 15GM TOP SCH (08:10)
--- NOTE | 2022-01-19 13:22 | P.CNS ---
Date of Consult: 01/19/22 Reason for Consult: painful toenails Allergies Penicillins Allergy (Intermediate, Verified 01/08/22 15:45) Hives/Rash Home Medications: Amlodipine Besylate/Valsartan [Amlodipine-Valsartan 10-320 mg] 1 tab PO DAILY 01/06/22 Atenolol [Tenormin] 25 mg PO DAILY 01/06/22 Folic Acid 1 mg PO DAILY 01/06/22 Methotrexate [Methotrexate*] 15 mg PO EVERY 7TH DAY 01/06/22 Zinc Amino Acid Chelate [Zinc] 50 mg PO DAILY 01/06/22 - Past Medical/Surgical History Diabetic: Yes -: HTN -: Hypothyroidism -: RA -: DM -: MYRON Hip replacement -: MYRON Knee replacement -: R elbow replacement -: Hysterectomy -: Appendictomy -: Sinoplasty - Family History Father Medical History: Lung disease Mother Medical History: Cancer - Social History Smoking Status: Unknown if ever smoked Alcohol use: No CD- Drugs: No Caffeine use: Yes Place of Residence: Home Review of Systems 10-point ROS is otherwise unremarkable Physical Examination Temp Pulse Resp BP Pulse Ox 99.2 F 67 16 137/61 99 01/19/22 07:32 01/19/22 08:09 01/19/22 07:32 01/19/22 08:09 01/19/22 07:32 General: Alert, In no apparent distress, Oriented x3 Cardiovascular: No edema, Normal pulses Capillary refill: <2 Seconds Musculoskeletal: No clubbing, No swelling, No contractures, No erythema, No tenderness, No warmth Integumentary: Other (Thickened hypertrophic nails with subungual debris x 10) Neurological: Sensation intact Laboratory Data (last 24 hrs) 01/19/22 04:16: Sodium 139, Potassium 3.9, BUN 15, Creatinine 0.54 L, Glucose 119 H, Magnesium 2.3 01/19/22 04:16: WBC 6.60, Hgb 10.4 L, Hct 31.3 L, Plt Count 203 - Problems (1) Tinea unguium Current Visit: Yes Status: Acute Conclusions/Impression: mechanical debridement of nails at bedside Physician Review: Patient Assessed, Agree with Above Assessment and Plan
[2022-01-19] MEDS: ENSURE HIGH PROTEIN 237 ML CAN PO SCH (19:41)
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
[2022-01-20] MEDS: atenoloL 25 MG TAB PO SCH (05:11)
[2022-01-20] MEDS: LEVOTHYROXINE SOD 0.05 MG TABLET PO SCH (05:11)
[2022-01-20] MEDS: INSULIN -REGULAR HUMAN 50 UNIT/0.5 ML ML SQ SCH ×2 (07:30→19:44)
[2022-01-20] MEDS: PANTOPRAZOLE 40MG TABLET PO SCH (08:22)
[2022-01-20] MEDS: CRANBERRY FRUIT EXTRACT 200 MG CAP PO SCH ×2 (09:00→19:42)
[2022-01-20] MEDS: AMLODIPINE 5 MG TAB PO SCH ×2 (09:00→19:42)
[2022-01-20] MEDS: FOLIC ACID 1 MG TABLET PO SCH (09:00)
[2022-01-20] MEDS: VALSARTAN 160 MG TAB PO SCH ×2 (09:00→19:42)
[2022-01-20] MEDS: BACI/NEOMYCIN/POLY OINT 15GM TOP SCH (09:01)
[2022-01-20] MEDS: METFORMIN HCL 500 MG TAB PO SCH (09:01)
[2022-01-20] MEDS: ENOXAPARIN 30 MG/0.3 ML SQ SCH (09:01)
[2022-01-20] MEDS: ENSURE HIGH PROTEIN 237 ML CAN PO SCH ×2 (09:02→19:45)
--- NOTE | 2022-01-20 09:51 | P.RH.PN ---
Estimated Length of Stay: 18 Expected Discharge Date: 01/23/22 Discharge Disposition Plan: Home [facility] Goal: Mobility, Transfers, Self Care Vital Signs: Last Vital Signs Temp 97.6 F 01/20/22 07:29 Pulse 70 01/20/22 09:00 Resp 18 01/20/22 07:29 BP 146/67 H 01/20/22 09:00 Pulse Ox 100 01/20/22 07:29 Laboratory: Laboratory Last Values WBC 6.60 K/uL (4.3-10.9) 01/19/22 04:16 RBC 3.40 M/uL (3.86-4.86) L 01/19/22 04:16 Hgb 10.4 g/dL (12.0-15.0) L 01/19/22 04:16 Hct 31.3 % (36.0-45.0) L 01/19/22 04:16 MCV 92.0 fL (80-100) 01/19/22 04:16 MCH 30.6 pg (27.0-35.0) 01/19/22 04:16 MCHC 33.2 g/dL (32.0-36.0) 01/19/22 04:16 RDW 15.8 % (12.1-15.2) H 01/19/22 04:16 Plt Count 203 K/uL (152-406) 01/19/22 04:16 MPV 9.2 fL (7.6-11.3) 01/19/22 04:16 Neutrophils % 50.0 % (41.7-73.7) 01/19/22 04:16 Lymphocytes % 36.9 % (15.3-44.8) 01/19/22 04:16 Monocytes % 9.3 % (3.3-12.3) 01/19/22 04:16 Eosinophils % 2.8 % (0-4.4) 01/19/22 04:16 Basophils % 1.0 % (0-1.3) 01/19/22 04:16 Absolute Neutrophils 3.3 K/uL (1.8-8.0) 01/19/22 04:16 Absolute Lymphocytes 2.4 K/uL (0.7-4.9) 01/19/22 04:16 Absolute Monocytes 0.6 K/uL (0.1-1.3) 01/19/22 04:16 Absolute Eosinophils 0.2 K/uL (0-0.5) 01/19/22 04:16 Absolute Basophils 0.1 K/uL (0-0.5) 01/19/22 04:16 Sodium 139 mmol/L (136-145) 01/19/22 04:16 Potassium 3.9 mmol/L (3.5-5.1) 01/19/22 04:16 Chloride 109 mmol/L (98-107) H 01/19/22 04:16 Carbon Dioxide 25 mmol/L (21-32) 01/19/22 04:16 Anion Gap 8.9 mEq/L (5.0-15.0) 01/19/22 04:16 BUN 15 mg/dL (7-18) 01/19/22 04:16 Creatinine 0.54 mg/dL (0.55-1.3) L 01/19/22 04:16 Est GFR (CKD-EPI) 91 ml/min (=/>90) 01/19/22 04:16 Glucose 119 mg/dL (74-106) H 01/19/22 04:16 POC Glucose 116 mg/dL (65-120) 01/20/22 07:01 Calcium 9.0 mg/dL (8.5-10.1) 01/19/22 04:16 Magnesium 2.3 mg/dL (1.8-2.4) 01/19/22 04:16 Albumin 2.9 g/dL (3.4-5.0) L 01/19/22 04:16 Prealbumin 18.6 mg/dL (20-40) L 01/19/22 04:16 Urine Color Yellow (Yellow) 01/08/22 00:20 Urine Clarity Clear (Clear) 01/08/22 00:20 Urine pH 6.5 (5.0-7.0) 01/08/22 00:20 Ur Specific [place] 1.019 (1.005-1.030) 01/08/22 00:20 Glucose (UA)(Auto) Negative (Negative) 01/08/22 00:20 Urine Ketones Negative (Negative) 01/08/22 00:20 Urine Blood Negative (Negative) 01/08/22 00:20 Urine Nitrite Negative (Negative) 01/08/22 00:20 Urine Bilirubin Negative (Negative) 01/08/22 00:20 Urine Urobilinogen Normal (Normal) 01/08/22 00:20 Ur Leukocyte Esterase 250 [place]/uL (Negative) H 01/08/22 00:20 Urine RBC <5 /HPF (None Seen) 01/08/22 00:20 Urine WBC <5 /HPF (<5) 01/08/22 00:20 Ur Squamous Epith Cells <5 /HPF (None Seen) 01/08/22 00:20 Calcium Oxalate Crystal Few /HPF (None Seen) 01/08/22 00:20 Urine Bacteria <20 /HPF (<20) 01/08/22 00:20 Urine Mucus Slight /HPF (None Seen) 01/08/22 00:20 Urine Total Protein Negative (Negative) 01/08/22 00:20 SARS-CoV-2 Rap RNA(RT-PCR) Negative (NEGATIVE) 01/13/22 05:00 Weight: 178 lb Wound Present: Yes Closed Surgical Incision Present: Yes Negative Pressure Wound Therapy Present: No Physician Update: Labs reviwed and her pain is well managed. She is at contact guard with transfers due to the restrictions on the left leg. Transfers at min to mod with sit to stand. Bed mobility is at SBA, wheelchair at 50' with SBA. She is limited by marked arthritis. Grooming at set up, bathing at max assistance cannot reach back to [facility]. Upper body dressing mod assist, lower body dressing at max assistance. Independent with foot wear. Toileting at max assistance. Toilet transfers at max assitance. She will go to SNF at [place]. 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 Please see the Rehabilitation Signature page for all necessary signatures.
[2022-01-21] MEDS: ACETAMINOPHEN 500 MG TAB PO PRN (03:35)
[2022-01-21] MEDS: atenoloL 25 MG TAB PO SCH (05:14)
[2022-01-21] MEDS: LEVOTHYROXINE SOD 0.05 MG TABLET PO SCH (05:15)
[2022-01-21] MEDS: INSULIN -REGULAR HUMAN 50 UNIT/0.5 ML ML SQ SCH ×2 (07:30→20:05)
[2022-01-21] MEDS: ENSURE HIGH PROTEIN 237 ML CAN PO SCH ×3 (08:00→20:00)
[2022-01-21] MEDS: FOLIC ACID 1 MG TABLET PO SCH (08:18)
[2022-01-21] MEDS: ENOXAPARIN 30 MG/0.3 ML SQ SCH (08:18)
[2022-01-21] MEDS: METHOTREXATE 2.5 MG TAB PO SCH (08:18)
[2022-01-21] MEDS: AMLODIPINE 5 MG TAB PO SCH ×2 (08:19→20:04)
[2022-01-21] MEDS: PANTOPRAZOLE 40MG TABLET PO SCH (08:19)
[2022-01-21] MEDS: METFORMIN HCL 500 MG TAB PO SCH (08:19)
[2022-01-21] MEDS: CRANBERRY FRUIT EXTRACT 200 MG CAP PO SCH ×2 (08:20→20:04)
[2022-01-21] MEDS: VALSARTAN 160 MG TAB PO SCH ×2 (08:20→20:05)
[2022-01-21] MEDS: BACI/NEOMYCIN/POLY OINT 15GM TOP SCH (08:20)
[2022-01-21] MEDS: LOPERAMIDE HCL 2 MG CAPSULE PO PRN ×3 (13:22→21:21)
[2022-01-22] MEDS: ACETAMINOPHEN 500 MG TAB PO PRN ×2 (03:47→15:50)
[2022-01-22] MEDS: atenoloL 25 MG TAB PO SCH (05:13)
[2022-01-22] MEDS: LEVOTHYROXINE SOD 0.05 MG TABLET PO SCH (05:13)
[2022-01-22] MEDS: METFORMIN HCL 500 MG TAB PO SCH (07:30)
[2022-01-22] MEDS: INSULIN -REGULAR HUMAN 50 UNIT/0.5 ML ML SQ SCH ×2 (07:30→19:56)
[2022-01-22] MEDS: PANTOPRAZOLE 40MG TABLET PO SCH (07:30)
[2022-01-22] MEDS: CRANBERRY FRUIT EXTRACT 200 MG CAP PO SCH ×2 (07:30→19:38)
[2022-01-22] MEDS: ENOXAPARIN 30 MG/0.3 ML SQ SCH (07:30)
[2022-01-22] MEDS: ENSURE HIGH PROTEIN 237 ML CAN PO SCH ×2 (07:31→19:38)
[2022-01-22] MEDS: VALSARTAN 160 MG TAB PO SCH ×2 (07:31→19:38)
[2022-01-22] MEDS: FOLIC ACID 1 MG TABLET PO SCH (07:31)
[2022-01-22] MEDS: AMLODIPINE 5 MG TAB PO SCH ×2 (07:31→19:38)
[2022-01-22] MEDS: BACI/NEOMYCIN/POLY OINT 15GM TOP SCH (08:19)
[2022-01-23] MEDS: LEVOTHYROXINE SOD 0.05 MG TABLET PO SCH (05:27)
[2022-01-23] MEDS: atenoloL 25 MG TAB PO SCH (05:27)
[2022-01-23] MEDS: ENOXAPARIN 30 MG/0.3 ML SQ SCH (07:08)
[2022-01-23] MEDS: PANTOPRAZOLE 40MG TABLET PO SCH (07:09)
[2022-01-23] MEDS: INSULIN -REGULAR HUMAN 50 UNIT/0.5 ML ML SQ SCH ×2 (07:13→20:00)
[2022-01-23] MEDS: ENSURE HIGH PROTEIN 237 ML CAN PO SCH ×2 (08:00→19:45)
[2022-01-23] MEDS: VALSARTAN 160 MG TAB PO SCH ×2 (08:01→19:44)
[2022-01-23] MEDS: CRANBERRY FRUIT EXTRACT 200 MG CAP PO SCH ×2 (08:01→19:44)
[2022-01-23] MEDS: FOLIC ACID 1 MG TABLET PO SCH (08:01)
[2022-01-23] MEDS: METFORMIN HCL 500 MG TAB PO SCH (08:02)
[2022-01-23] MEDS: BACI/NEOMYCIN/POLY OINT 15GM TOP SCH (08:02)
[2022-01-23] MEDS: AMLODIPINE 5 MG TAB PO SCH ×2 (08:02→19:44)
[2022-01-23] MEDS: ACETAMINOPHEN 500 MG TAB PO PRN ×2 (08:05→17:08)
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
[2022-01-24] MEDS: atenoloL 25 MG TAB PO SCH (05:32)
[2022-01-24] MEDS: LEVOTHYROXINE SOD 0.05 MG TABLET PO SCH (05:32)
[2022-01-24] MEDS: ENSURE HIGH PROTEIN 237 ML CAN PO SCH ×2 (07:23→20:00)
[2022-01-24] MEDS: INSULIN -REGULAR HUMAN 50 UNIT/0.5 ML ML SQ SCH ×2 (07:23→21:00)
[2022-01-24] MEDS: PANTOPRAZOLE 40MG TABLET PO SCH (07:38)
[2022-01-24] MEDS: ENOXAPARIN 30 MG/0.3 ML SQ SCH (07:39)
[2022-01-24] MEDS: CRANBERRY FRUIT EXTRACT 200 MG CAP PO SCH ×2 (07:39→19:58)
[2022-01-24] MEDS: VALSARTAN 160 MG TAB PO SCH ×2 (07:39→19:59)
[2022-01-24] MEDS: AMLODIPINE 5 MG TAB PO SCH ×2 (07:39→19:59)
[2022-01-24] MEDS: METFORMIN HCL 500 MG TAB PO SCH (07:40)
[2022-01-24] MEDS: BACI/NEOMYCIN/POLY OINT 15GM TOP SCH (07:41)
[2022-01-24] MEDS: FOLIC ACID 1 MG TABLET PO SCH (07:41)
[2022-01-24] MEDS: ACETAMINOPHEN 500 MG TAB PO PRN ×2 (07:54→16:50)
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
[2022-01-25] MEDS: LEVOTHYROXINE SOD 0.05 MG TABLET PO SCH (05:52)
[2022-01-25] MEDS: atenoloL 25 MG TAB PO SCH (05:52)
[2022-01-25] MEDS: ACETAMINOPHEN 500 MG TAB PO PRN ×2 (05:53→16:24)
[2022-01-25] MEDS: LOPERAMIDE HCL 2 MG CAPSULE PO PRN (05:56)
[2022-01-25] MEDS: INSULIN -REGULAR HUMAN 50 UNIT/0.5 ML ML SQ SCH ×2 (06:33→20:07)
[2022-01-25] MEDS: PANTOPRAZOLE 40MG TABLET PO SCH (06:34)
[2022-01-25] MEDS: CRANBERRY FRUIT EXTRACT 200 MG CAP PO SCH ×2 (06:35→19:57)
[2022-01-25] MEDS: VALSARTAN 160 MG TAB PO SCH ×2 (06:35→19:12)
[2022-01-25] MEDS: ENSURE HIGH PROTEIN 237 ML CAN PO SCH ×2 (06:35→19:12)
[2022-01-25] MEDS: FOLIC ACID 1 MG TABLET PO SCH (06:36)
[2022-01-25] MEDS: METFORMIN HCL 500 MG TAB PO SCH (06:36)
[2022-01-25] MEDS: ENOXAPARIN 30 MG/0.3 ML SQ SCH ×2 (06:36→13:52)
[2022-01-25] MEDS: AMLODIPINE 5 MG TAB PO SCH ×2 (06:37→19:12)
[2022-01-25] MEDS: BACI/NEOMYCIN/POLY OINT 15GM TOP SCH ×2 (06:37→13:52)
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
[2022-01-26 04:33] LABS: Absolute Lymphocytes (CBC) 2.3 K/uL (0.7-4.9); Hematocrit 31.7 % (36.0-45.0); MCV 92.4 fL (80-100); MPV 9.8 fL (7.6-11.3); RBC Red Blood Cell Count 3.42 M/uL (3.86-4.86)
[2022-01-26 05:00] LABS: Albumin 2.9 g/dL (3.4-5.0); Magnesium 2.3 mg/dL (1.8-2.4); Prealbumin 16.5 mg/dL (20-40)
[2022-01-26] MEDS: LEVOTHYROXINE SOD 0.05 MG TABLET PO SCH (05:29)
[2022-01-26] MEDS: atenoloL 25 MG TAB PO SCH (05:29)
[2022-01-26] MEDS: INSULIN -REGULAR HUMAN 50 UNIT/0.5 ML ML SQ SCH ×2 (07:30→20:35)
[2022-01-26] MEDS: ENSURE HIGH PROTEIN 237 ML CAN PO SCH ×2 (08:00→19:42)
[2022-01-26] MEDS: VALSARTAN 160 MG TAB PO SCH ×2 (08:17→19:41)
[2022-01-26] MEDS: BACI/NEOMYCIN/POLY OINT 15GM TOP SCH (08:17)
[2022-01-26] MEDS: AMLODIPINE 5 MG TAB PO SCH ×2 (08:18→19:41)
[2022-01-26] MEDS: FOLIC ACID 1 MG TABLET PO SCH (08:18)
[2022-01-26] MEDS: CRANBERRY FRUIT EXTRACT 200 MG CAP PO SCH ×2 (08:18→19:41)
[2022-01-26] MEDS: ENOXAPARIN 30 MG/0.3 ML SQ SCH (08:19)
[2022-01-26] MEDS: METFORMIN HCL 500 MG TAB PO SCH (08:19)
[2022-01-26] MEDS: PANTOPRAZOLE 40MG TABLET PO SCH (08:19)
[2022-01-26] MEDS: ACETAMINOPHEN 500 MG TAB PO PRN (14:53)
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
[2022-01-27] MEDS: LEVOTHYROXINE SOD 0.05 MG TABLET PO SCH (05:34)
[2022-01-27] MEDS: atenoloL 25 MG TAB PO SCH (05:34)
[2022-01-27] MEDS: PANTOPRAZOLE 40MG TABLET PO SCH (07:18)
[2022-01-27] MEDS: ACETAMINOPHEN 500 MG TAB PO PRN ×2 (07:19→20:58)
[2022-01-27] MEDS: ENOXAPARIN 30 MG/0.3 ML SQ SCH (07:19)
[2022-01-27] MEDS: INSULIN -REGULAR HUMAN 50 UNIT/0.5 ML ML SQ SCH ×2 (07:30→20:24)
[2022-01-27] MEDS: CRANBERRY FRUIT EXTRACT 200 MG CAP PO SCH ×2 (07:39→20:22)
[2022-01-27] MEDS: FOLIC ACID 1 MG TABLET PO SCH (07:40)
[2022-01-27] MEDS: VALSARTAN 160 MG TAB PO SCH ×2 (07:40→20:23)
[2022-01-27] MEDS: AMLODIPINE 5 MG TAB PO SCH ×2 (07:41→20:23)
[2022-01-27] MEDS: METFORMIN HCL 500 MG TAB PO SCH (07:41)
[2022-01-27] MEDS: ENSURE HIGH PROTEIN 237 ML CAN PO SCH ×2 (07:41→20:24)
--- NOTE | 2022-01-27 09:54 | P.RH.PN ---
Estimated Length of Stay: 24 Expected Discharge Date: 02/01/22 Discharge Disposition Plan: Longterm Facility Family Support: Yes (She has support from latter-day members) [facility] Goal: Mobility, Transfers, Self Care Vital Signs: Last Vital Signs Temp 97.6 F 01/27/22 06:39 Pulse 69 01/27/22 07:41 Resp 18 01/27/22 06:39 BP 142/62 H 01/27/22 07:41 Pulse Ox 99 01/27/22 06:39 Laboratory: Laboratory Last Values WBC 6.20 K/uL (4.3-10.9) 01/26/22 04:00 RBC 3.42 M/uL (3.86-4.86) L 01/26/22 04:00 Hgb 10.4 g/dL (12.0-15.0) L 01/26/22 04:00 Hct 31.7 % (36.0-45.0) L 01/26/22 04:00 MCV 92.4 fL (80-100) 01/26/22 04:00 MCH 30.3 pg (27.0-35.0) 01/26/22 04:00 MCHC 32.8 g/dL (32.0-36.0) 01/26/22 04:00 RDW 16.2 % (12.1-15.2) H 01/26/22 04:00 Plt Count 196 K/uL (152-406) 01/26/22 04:00 MPV 9.8 fL (7.6-11.3) 01/26/22 04:00 Neutrophils % 50.6 % (41.7-73.7) 01/26/22 04:00 Lymphocytes % 37.0 % (15.3-44.8) 01/26/22 04:00 Monocytes % 8.9 % (3.3-12.3) 01/26/22 04:00 Eosinophils % 2.9 % (0-4.4) 01/26/22 04:00 Basophils % 0.6 % (0-1.3) 01/26/22 04:00 Absolute Neutrophils 3.1 K/uL (1.8-8.0) 01/26/22 04:00 Absolute Lymphocytes 2.3 K/uL (0.7-4.9) 01/26/22 04:00 Absolute Monocytes 0.6 K/uL (0.1-1.3) 01/26/22 04:00 Absolute Eosinophils 0.2 K/uL (0-0.5) 01/26/22 04:00 Absolute Basophils 0.0 K/uL (0-0.5) 01/26/22 04:00 Sodium 139 mmol/L (136-145) 01/26/22 04:00 Potassium 4.0 mmol/L (3.5-5.1) 01/26/22 04:00 Chloride 108 mmol/L (98-107) H 01/26/22 04:00 Carbon Dioxide 24 mmol/L (21-32) 01/26/22 04:00 Anion Gap 11.0 mEq/L (5.0-15.0) 01/26/22 04:00 BUN 20 mg/dL (7-18) H 01/26/22 04:00 Creatinine 0.48 mg/dL (0.55-1.3) L 01/26/22 04:00 Est GFR (CKD-EPI) 94 ml/min (=/>90) 01/26/22 04:00 Glucose 117 mg/dL (74-106) H 01/26/22 04:00 POC Glucose 124 mg/dL (65-120) H 01/27/22 06:59 Calcium 8.9 mg/dL (8.5-10.1) 01/26/22 04:00 Magnesium 2.3 mg/dL (1.8-2.4) 01/26/22 04:00 Albumin 2.9 g/dL (3.4-5.0) L 01/26/22 04:00 Prealbumin 16.5 mg/dL (20-40) L 01/26/22 04:00 Urine Color Yellow (Yellow) 01/08/22 00:20 Urine Clarity Clear (Clear) 01/08/22 00:20 Urine pH 6.5 (5.0-7.0) 01/08/22 00:20 Ur Specific [place] 1.019 (1.005-1.030) 01/08/22 00:20 Glucose (UA)(Auto) Negative (Negative) 01/08/22 00:20 Urine Ketones Negative (Negative) 01/08/22 00:20 Urine Blood Negative (Negative) 01/08/22 00:20 Urine Nitrite Negative (Negative) 01/08/22 00:20 Urine Bilirubin Negative (Negative) 01/08/22 00:20 Urine Urobilinogen Normal (Normal) 01/08/22 00:20 Ur Leukocyte Esterase 250 [place]/uL (Negative) H 01/08/22 00:20 Urine RBC <5 /HPF (None Seen) 01/08/22 00:20 Urine WBC <5 /HPF (<5) 01/08/22 00:20 Ur Squamous Epith Cells <5 /HPF (None Seen) 01/08/22 00:20 Calcium Oxalate Crystal Few /HPF (None Seen) 01/08/22 00:20 Urine Bacteria <20 /HPF (<20) 01/08/22 00:20 Urine Mucus Slight /HPF (None Seen) 01/08/22 00:20 Urine Total Protein Negative (Negative) 01/08/22 00:20 SARS-CoV-2 Rap RNA(RT-PCR) Negative (NEGATIVE) 01/27/22 03:50 Weight: 178 lb Wound Present: Yes Closed Surgical Incision Present: Yes Negative Pressure Wound Therapy Present: No Physician Update: Her labs were reviewed and are stable. She has support from her latter-day if she goes home. She will have a wheelchair, rolling walker, and hospital bed. She has improved drainage in the left lower extremity wound site. She has arthritis in the hands. Goals transfers with slide board at supervision, lower body dressing at contact guard assistance. She may be discharged next week. 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 Please see the Rehabilitation Signature page for all necessary signatures.
[2022-01-27] MEDS: BACI/NEOMYCIN/POLY OINT 15GM TOP SCH (10:35)
[2022-01-28] MEDS: LEVOTHYROXINE SOD 0.05 MG TABLET PO SCH (05:23)
[2022-01-28] MEDS: atenoloL 25 MG TAB PO SCH (05:24)
[2022-01-28] MEDS: INSULIN -REGULAR HUMAN 50 UNIT/0.5 ML ML SQ SCH ×2 (07:23→19:52)
[2022-01-28] MEDS: ENSURE HIGH PROTEIN 237 ML CAN PO SCH ×2 (07:23→19:51)
[2022-01-28] MEDS: PANTOPRAZOLE 40MG TABLET PO SCH (08:27)
[2022-01-28] MEDS: ENOXAPARIN 30 MG/0.3 ML SQ SCH (08:56)
[2022-01-28] MEDS: CRANBERRY FRUIT EXTRACT 200 MG CAP PO SCH ×2 (08:56→19:51)
[2022-01-28] MEDS: METHOTREXATE 2.5 MG TAB PO SCH (08:56)
[2022-01-28] MEDS: VALSARTAN 160 MG TAB PO SCH ×2 (08:57→19:51)
[2022-01-28] MEDS: AMLODIPINE 5 MG TAB PO SCH ×2 (08:57→19:51)
[2022-01-28] MEDS: FOLIC ACID 1 MG TABLET PO SCH (08:57)
[2022-01-28] MEDS: BACI/NEOMYCIN/POLY OINT 15GM TOP SCH (08:58)
[2022-01-28] MEDS: METFORMIN HCL 500 MG TAB PO SCH (08:58)
[2022-01-28] MEDS: LOPERAMIDE HCL 2 MG CAPSULE PO PRN ×2 (10:57→15:03)
[2022-01-28] MEDS: ACETAMINOPHEN 500 MG TAB PO PRN (13:26)
[2022-01-29] MEDS: atenoloL 25 MG TAB PO SCH (05:35)
[2022-01-29] MEDS: LEVOTHYROXINE SOD 0.05 MG TABLET PO SCH (05:35)
[2022-01-29] MEDS: INSULIN -REGULAR HUMAN 50 UNIT/0.5 ML ML SQ SCH ×2 (07:30→19:58)
[2022-01-29] MEDS: PANTOPRAZOLE 40MG TABLET PO SCH (07:31)
[2022-01-29] MEDS: ENOXAPARIN 30 MG/0.3 ML SQ SCH (07:32)
[2022-01-29] MEDS: VALSARTAN 160 MG TAB PO SCH ×2 (07:47→19:58)
[2022-01-29] MEDS: AMLODIPINE 5 MG TAB PO SCH ×2 (07:48→19:58)
[2022-01-29] MEDS: FOLIC ACID 1 MG TABLET PO SCH (07:48)
[2022-01-29] MEDS: METFORMIN HCL 500 MG TAB PO SCH (07:48)
[2022-01-29] MEDS: CRANBERRY FRUIT EXTRACT 200 MG CAP PO SCH ×2 (07:48→19:57)
[2022-01-29] MEDS: ENSURE HIGH PROTEIN 237 ML CAN PO SCH ×2 (07:50→19:58)
[2022-01-29] MEDS: BACI/NEOMYCIN/POLY OINT 15GM TOP SCH (08:11)
[2022-01-30] MEDS: atenoloL 25 MG TAB PO SCH (05:38)
[2022-01-30] MEDS: LEVOTHYROXINE SOD 0.05 MG TABLET PO SCH (05:39)
[2022-01-30] MEDS: PANTOPRAZOLE 40MG TABLET PO SCH (07:17)
[2022-01-30] MEDS: ENOXAPARIN 30 MG/0.3 ML SQ SCH (07:17)
[2022-01-30] MEDS: INSULIN -REGULAR HUMAN 50 UNIT/0.5 ML ML SQ SCH ×2 (07:27→20:56)
[2022-01-30] MEDS: BACI/NEOMYCIN/POLY OINT 15GM TOP SCH (07:28)
[2022-01-30] MEDS: METFORMIN HCL 500 MG TAB PO SCH (07:28)
[2022-01-30] MEDS: AMLODIPINE 5 MG TAB PO SCH ×2 (07:29→19:40)
[2022-01-30] MEDS: FOLIC ACID 1 MG TABLET PO SCH (07:29)
[2022-01-30] MEDS: CRANBERRY FRUIT EXTRACT 200 MG CAP PO SCH ×2 (07:29→19:40)
[2022-01-30] MEDS: ENSURE HIGH PROTEIN 237 ML CAN PO SCH (07:30)
[2022-01-30] MEDS: ACETAMINOPHEN 500 MG TAB PO PRN ×2 (07:30→21:03)
[2022-01-30] MEDS: VALSARTAN 160 MG TAB PO SCH ×2 (07:30→19:40)
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
[2022-01-31] MEDS: LEVOTHYROXINE SOD 0.05 MG TABLET PO SCH (05:08)
[2022-01-31] MEDS: atenoloL 25 MG TAB PO SCH (05:08)
[2022-01-31] MEDS: ACETAMINOPHEN 500 MG TAB PO PRN ×2 (05:44→20:14)
[2022-01-31] MEDS: PANTOPRAZOLE 40MG TABLET PO SCH (07:29)
[2022-01-31] MEDS: INSULIN -REGULAR HUMAN 50 UNIT/0.5 ML ML SQ SCH ×2 (07:30→20:16)
[2022-01-31] MEDS: ENOXAPARIN 30 MG/0.3 ML SQ SCH (07:30)
[2022-01-31] MEDS: AMLODIPINE 5 MG TAB PO SCH ×2 (07:45→20:14)
[2022-01-31] MEDS: VALSARTAN 160 MG TAB PO SCH ×2 (07:45→20:14)
[2022-01-31] MEDS: BACI/NEOMYCIN/POLY OINT 15GM TOP SCH (07:46)
[2022-01-31] MEDS: FOLIC ACID 1 MG TABLET PO SCH (07:46)
[2022-01-31] MEDS: METFORMIN HCL 500 MG TAB PO SCH (07:46)
[2022-01-31] MEDS: CRANBERRY FRUIT EXTRACT 200 MG CAP PO SCH ×2 (07:46→20:13)
[2022-01-31] MEDS: LOPERAMIDE HCL 2 MG CAPSULE PO PRN ×2 (14:55→20:14)
--- NOTE | 2022-02-01 02:14 | PN ---
Date of Progress Note: 01/31/2022 This is a bkgf-qn-fqnn visit with the patient, Pretty Crook. Subjective: Ms. Crook reports doing very well. She is very upbeat, very happy with her progress in therapy. She reports no significant pain in the left lower extremity surgical site. No significa nt drainage when her dressing was changed. Review of Systems: She denies any fevers, chills, nausea, or vomiting. Mild arthralgias in the hands from arthritis. N o muscle cramps or spasms. No gastrointestinal or genitourinary issues. Physical Examination: Vital Signs: Blood pressure 122/59, pulse 74, respiratory rate of 16, temperature 97.7. General: Ms. Crook is resting in bed, smiling. She had lunch. She ate well. She has no acute d istress. Neurologic: In terms of cranial nerves, no focal deficits. 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 She has good hemostasis in the left lower extremity michele gical site. Laboratory Studies: Her blood sugars range from 120-137. X-ray Imaging: No new imaging. Medications: Continue unchanged with Norvasc 5 mg daily, atenolol 25 mg daily, Klonopin as needed at bedtime, Lovenox 30 mg subcutaneously daily, folic acid 1 mg daily, Synthroid 0.05 mg daily, Imodium 2 mg as needed, Glucophage 250 mg daily, methotrexate 15 mg every 7th day, Protonix 40 mg daily, Sen okot-S 2 at night, and Diovan 160 mg twice daily. Current Functional Status: Currently Ms. Crook is able to perform bed mobility with sliding board and transfer to a low mat table with independence after she is set up. She performed dynamic unsupp orted sitting balance activities in wheelchair. She self propelled wheelchair independently 150 feet with bilateral upper extremities. Progress toward her rehabilitation goals: She is making excellent progress overall towards her rehab ilitation goals. Assessment And Plan: She does have multiple fractures that was surgically treated with rods protrudi ng from her left lower extremity with good hemostasis at the surgical sites. No significant changes and no cyanotic changes in the left exposed part of her foot. She does have significant arthritic ch anges in upper extremities, which is a limiting factor. Diabetes mellitus is now controlled. Her bl ood pressure is also controlled. She does not have family members who are easily available to assist with her. She does have pentecostal members and as a result, she may still need some assistance, caryn desir in the middle of the night if she has to go to the bathroom and as a result the recommendation is to have 24 hour help either at home or in a facility that may allow that to happen. When she is rem ronan from a nonweightbearing status, she may be easily able to be independent. Comorbid conditions t hat are continuing to impact her rehab process are the arthritic issues of the hand, which she is wor salvador to overcome, it is her main problem and she has not weightbearing status of the left lower extre mity. YANIQUE/KIKA Voice ID: [id number] Report ID: [id number]
[2022-02-01] MEDS: atenoloL 25 MG TAB PO SCH (05:19)
[2022-02-01] MEDS: LEVOTHYROXINE SOD 0.05 MG TABLET PO SCH (05:19)
[2022-02-01] MEDS: PANTOPRAZOLE 40MG TABLET PO SCH (06:58)
[2022-02-01] MEDS: ENOXAPARIN 30 MG/0.3 ML SQ SCH (07:06)
[2022-02-01] MEDS: INSULIN -REGULAR HUMAN 50 UNIT/0.5 ML ML SQ SCH ×2 (07:08→20:40)
[2022-02-01] MEDS: VALSARTAN 160 MG TAB PO SCH ×2 (08:00→20:39)
[2022-02-01] MEDS: CRANBERRY FRUIT EXTRACT 200 MG CAP PO SCH ×2 (08:37→20:39)
[2022-02-01] MEDS: METFORMIN HCL 500 MG TAB PO SCH (08:38)
[2022-02-01] MEDS: FOLIC ACID 1 MG TABLET PO SCH (08:38)
[2022-02-01] MEDS: ACETAMINOPHEN 500 MG TAB PO PRN ×2 (08:39→18:33)
[2022-02-01] MEDS: AMLODIPINE 5 MG TAB PO SCH ×2 (08:41→20:00)
[2022-02-01] MEDS: BACI/NEOMYCIN/POLY OINT 15GM TOP SCH (09:27)
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
[2022-02-02 04:38] LABS: Absolute Lymphocytes (CBC) 2.4 K/uL (0.7-4.9); Hematocrit 32.1 % (36.0-45.0); Lymphocytes % 35.9 % (15.3-44.8); MCV 93.2 fL (80-100); MPV 9.5 fL (7.6-11.3); RBC Red Blood Cell Count 3.44 M/uL (3.86-4.86)
[2022-02-02 04:56] LABS: Magnesium 2.2 mg/dL (1.8-2.4); Prealbumin 16.7 mg/dL (20-40)
[2022-02-02] MEDS: LEVOTHYROXINE SOD 0.05 MG TABLET PO SCH (05:36)
[2022-02-02] MEDS: atenoloL 25 MG TAB PO SCH (05:36)
[2022-02-02] MEDS: ENOXAPARIN 30 MG/0.3 ML SQ SCH (07:12)
[2022-02-02] MEDS: PANTOPRAZOLE 40MG TABLET PO SCH (07:15)
[2022-02-02] MEDS: INSULIN -REGULAR HUMAN 50 UNIT/0.5 ML ML SQ SCH ×2 (07:19→20:29)
[2022-02-02] MEDS: VALSARTAN 160 MG TAB PO SCH ×2 (08:00→19:55)
[2022-02-02] MEDS: METFORMIN HCL 500 MG TAB PO SCH (08:16)
[2022-02-02] MEDS: FOLIC ACID 1 MG TABLET PO SCH (08:16)
[2022-02-02] MEDS: ACETAMINOPHEN 500 MG TAB PO PRN (08:17)
[2022-02-02] MEDS: CRANBERRY FRUIT EXTRACT 200 MG CAP PO SCH ×2 (08:18→19:55)
[2022-02-02] MEDS: AMLODIPINE 5 MG TAB PO SCH ×2 (08:22→19:55)
[2022-02-02] MEDS: BACI/NEOMYCIN/POLY OINT 15GM TOP SCH (08:22)
[2022-02-02] MEDS ORDERED: MAGNES/ALUMIN/SIMET 30ML UCUP PO PRN (12:22)
[2022-02-02] MEDS ORDERED: ONDANSETRON 4 MG (ODT) TAB PO PRN (12:22)
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
[2022-02-03] MEDS: atenoloL 25 MG TAB PO SCH (05:01)
[2022-02-03] MEDS: LEVOTHYROXINE SOD 0.05 MG TABLET PO SCH (05:01)
[2022-02-03] MEDS: ENOXAPARIN 30 MG/0.3 ML SQ SCH (07:17)
[2022-02-03] MEDS: PANTOPRAZOLE 40MG TABLET PO SCH (07:17)
[2022-02-03] MEDS: ACETAMINOPHEN 500 MG TAB PO PRN (07:18)
[2022-02-03] MEDS: INSULIN -REGULAR HUMAN 50 UNIT/0.5 ML ML SQ SCH ×2 (07:30→20:04)
[2022-02-03] MEDS: BACI/NEOMYCIN/POLY OINT 15GM TOP SCH (07:46)
[2022-02-03] MEDS: CRANBERRY FRUIT EXTRACT 200 MG CAP PO SCH ×2 (07:46→19:29)
[2022-02-03] MEDS: FOLIC ACID 1 MG TABLET PO SCH (07:46)
[2022-02-03] MEDS: VALSARTAN 160 MG TAB PO SCH ×2 (07:46→19:29)
[2022-02-03] MEDS: METFORMIN HCL 500 MG TAB PO SCH (07:47)
[2022-02-03] MEDS: AMLODIPINE 5 MG TAB PO SCH ×2 (07:47→19:29)
--- NOTE | 2022-02-03 09:44 | P.RH.PN ---
Estimated Length of Stay: 25 Expected Discharge Date: 02/09/22 Discharge Disposition Plan: Home Family Support: Yes Residential Goal: Mobility, Transfers, Self Care Vital Signs: Last Vital Signs Temp 98.0 F 02/03/22 07:52 Pulse 65 02/03/22 07:52 Resp 16 02/03/22 07:52 BP 137/65 02/03/22 07:52 Pulse Ox 100 02/03/22 07:52 Laboratory: Laboratory Last Values WBC 6.70 K/uL (4.3-10.9) 02/02/22 04:15 RBC 3.44 M/uL (3.86-4.86) L 02/02/22 04:15 Hgb 10.7 g/dL (12.0-15.0) L 02/02/22 04:15 Hct 32.1 % (36.0-45.0) L 02/02/22 04:15 MCV 93.2 fL (80-100) 02/02/22 04:15 MCH 31.0 pg (27.0-35.0) 02/02/22 04:15 MCHC 33.3 g/dL (32.0-36.0) 02/02/22 04:15 RDW 15.6 % (12.1-15.2) H 02/02/22 04:15 Plt Count 209 K/uL (152-406) 02/02/22 04:15 MPV 9.5 fL (7.6-11.3) 02/02/22 04:15 Neutrophils % 53.2 % (41.7-73.7) 02/02/22 04:15 Lymphocytes % 35.9 % (15.3-44.8) 02/02/22 04:15 Monocytes % 8.5 % (3.3-12.3) 02/02/22 04:15 Eosinophils % 2.0 % (0-4.4) 02/02/22 04:15 Basophils % 0.4 % (0-1.3) 02/02/22 04:15 Absolute Neutrophils 3.5 K/uL (1.8-8.0) 02/02/22 04:15 Absolute Lymphocytes 2.4 K/uL (0.7-4.9) 02/02/22 04:15 Absolute Monocytes 0.6 K/uL (0.1-1.3) 02/02/22 04:15 Absolute Eosinophils 0.1 K/uL (0-0.5) 02/02/22 04:15 Absolute Basophils 0.0 K/uL (0-0.5) 02/02/22 04:15 Sodium 138 mmol/L (136-145) 02/02/22 04:15 Potassium 4.0 mmol/L (3.5-5.1) 02/02/22 04:15 Chloride 109 mmol/L (98-107) H 02/02/22 04:15 Carbon Dioxide 23 mmol/L (21-32) 02/02/22 04:15 Anion Gap 10.0 mEq/L (5.0-15.0) 02/02/22 04:15 BUN 13 mg/dL (7-18) 02/02/22 04:15 Creatinine 0.62 mg/dL (0.55-1.3) 02/02/22 04:15 Est GFR (CKD-EPI) 88 ml/min (=/>90) L 02/02/22 04:15 Glucose 113 mg/dL (74-106) H 02/02/22 04:15 POC Glucose 110 mg/dL (65-120) 02/03/22 07:39 Calcium 9.1 mg/dL (8.5-10.1) 02/02/22 04:15 Magnesium 2.2 mg/dL (1.8-2.4) 02/02/22 04:15 Albumin 3.0 g/dL (3.4-5.0) L 02/02/22 04:15 Prealbumin 16.7 mg/dL (20-40) L 02/02/22 04:15 Urine Color Yellow (Yellow) 01/08/22 00:20 Urine Clarity Clear (Clear) 01/08/22 00:20 Urine pH 6.5 (5.0-7.0) 01/08/22 00:20 Ur Specific [place] 1.019 (1.005-1.030) 01/08/22 00:20 Glucose (UA)(Auto) Negative (Negative) 01/08/22 00:20 Urine Ketones Negative (Negative) 01/08/22 00:20 Urine Blood Negative (Negative) 01/08/22 00:20 Urine Nitrite Negative (Negative) 01/08/22 00:20 Urine Bilirubin Negative (Negative) 01/08/22 00:20 Urine Urobilinogen Normal (Normal) 01/08/22 00:20 Ur Leukocyte Esterase 250 [place]/uL (Negative) H 01/08/22 00:20 Urine RBC <5 /HPF (None Seen) 01/08/22 00:20 Urine WBC <5 /HPF (<5) 01/08/22 00:20 Ur Squamous Epith Cells <5 /HPF (None Seen) 01/08/22 00:20 Calcium Oxalate Crystal Few /HPF (None Seen) 01/08/22 00:20 Urine Bacteria <20 /HPF (<20) 01/08/22 00:20 Urine Mucus Slight /HPF (None Seen) 01/08/22 00:20 Urine Total Protein Negative (Negative) 01/08/22 00:20 SARS-CoV-2 Rap RNA(RT-PCR) Negative (NEGATIVE) 02/03/22 04:35 Weight: 178 lb Wound Present: Yes Closed Surgical Incision Present: Yes Negative Pressure Wound Therapy Present: No Physician Update: Moderate assistance for bathing. Max assistance with toileting. Set up to independent with sliding board. Independent with bed mobil ity. Wheelchair at modified independence with household distances. She could not hop one step in the parallel bars. Labs were reviewed and are stable. 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 Please see the Rehabilitation Signature page for all necessary signatures.
[2022-02-04] MEDS: LEVOTHYROXINE SOD 0.05 MG TABLET PO SCH (05:01)
[2022-02-04] MEDS: atenoloL 25 MG TAB PO SCH (05:01)
[2022-02-04] MEDS: INSULIN -REGULAR HUMAN 50 UNIT/0.5 ML ML SQ SCH ×2 (07:30→19:53)
[2022-02-04] MEDS: ENOXAPARIN 30 MG/0.3 ML SQ SCH (07:45)
[2022-02-04] MEDS: PANTOPRAZOLE 40MG TABLET PO SCH (07:45)
[2022-02-04] MEDS: VALSARTAN 160 MG TAB PO SCH ×2 (08:00→19:40)
[2022-02-04] MEDS: CRANBERRY FRUIT EXTRACT 200 MG CAP PO SCH ×2 (08:43→19:40)
[2022-02-04] MEDS: FOLIC ACID 1 MG TABLET PO SCH (08:43)
[2022-02-04] MEDS: METFORMIN HCL 500 MG TAB PO SCH (08:44)
[2022-02-04] MEDS: AMLODIPINE 5 MG TAB PO SCH ×2 (08:44→19:40)
[2022-02-04] MEDS: BACI/NEOMYCIN/POLY OINT 15GM TOP SCH (09:17)
[2022-02-04] MEDS: METHOTREXATE 2.5 MG TAB PO SCH (09:18)
[2022-02-05] MEDS: LEVOTHYROXINE SOD 0.05 MG TABLET PO SCH (05:12)
[2022-02-05] MEDS: atenoloL 25 MG TAB PO SCH (05:12)
[2022-02-05] MEDS: INSULIN -REGULAR HUMAN 50 UNIT/0.5 ML ML SQ SCH ×2 (07:30→19:47)
[2022-02-05] MEDS: ENOXAPARIN 30 MG/0.3 ML SQ SCH (07:35)
[2022-02-05] MEDS: PANTOPRAZOLE 40MG TABLET PO SCH (07:35)
[2022-02-05] MEDS: CRANBERRY FRUIT EXTRACT 200 MG CAP PO SCH ×2 (07:59→19:35)
[2022-02-05] MEDS: VALSARTAN 160 MG TAB PO SCH ×2 (07:59→19:35)
[2022-02-05] MEDS: FOLIC ACID 1 MG TABLET PO SCH (08:00)
[2022-02-05] MEDS: METFORMIN HCL 500 MG TAB PO SCH (08:00)
[2022-02-05] MEDS: AMLODIPINE 5 MG TAB PO SCH ×2 (08:00→19:35)
[2022-02-05] MEDS: BACI/NEOMYCIN/POLY OINT 15GM TOP SCH (08:00)
[2022-02-05] MEDS: ACETAMINOPHEN 500 MG TAB PO PRN ×2 (13:25→20:57)
[2022-02-06] MEDS: atenoloL 25 MG TAB PO SCH (05:19)
[2022-02-06] MEDS: LEVOTHYROXINE SOD 0.05 MG TABLET PO SCH (05:19)
[2022-02-06] MEDS: PANTOPRAZOLE 40MG TABLET PO SCH (07:14)
[2022-02-06] MEDS: ENOXAPARIN 30 MG/0.3 ML SQ SCH (07:15)
[2022-02-06] MEDS: ACETAMINOPHEN 500 MG TAB PO PRN (07:15)
[2022-02-06] MEDS: INSULIN -REGULAR HUMAN 50 UNIT/0.5 ML ML SQ SCH ×2 (07:30→20:03)
[2022-02-06] MEDS: CRANBERRY FRUIT EXTRACT 200 MG CAP PO SCH ×2 (08:02→20:02)
[2022-02-06] MEDS: FOLIC ACID 1 MG TABLET PO SCH (08:02)
[2022-02-06] MEDS: BACI/NEOMYCIN/POLY OINT 15GM TOP SCH (08:02)
[2022-02-06] MEDS: VALSARTAN 160 MG TAB PO SCH ×2 (08:02→20:03)
[2022-02-06] MEDS: AMLODIPINE 5 MG TAB PO SCH ×2 (08:03→20:02)
[2022-02-06] MEDS: METFORMIN HCL 500 MG TAB PO SCH (08:03)
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
[2022-02-07] MEDS: LEVOTHYROXINE SOD 0.05 MG TABLET PO SCH (05:03)
[2022-02-07] MEDS: atenoloL 25 MG TAB PO SCH (05:04)
[2022-02-07] MEDS: INSULIN -REGULAR HUMAN 50 UNIT/0.5 ML ML SQ SCH ×2 (07:30→20:05)
[2022-02-07] MEDS: PANTOPRAZOLE 40MG TABLET PO SCH (07:50)
[2022-02-07] MEDS: ENOXAPARIN 30 MG/0.3 ML SQ SCH (07:50)
[2022-02-07] MEDS: VALSARTAN 160 MG TAB PO SCH ×2 (08:00→19:03)
[2022-02-07] MEDS: ACETAMINOPHEN 500 MG TAB PO PRN (08:28)
[2022-02-07] MEDS: METFORMIN HCL 500 MG TAB PO SCH (08:29)
[2022-02-07] MEDS: FOLIC ACID 1 MG TABLET PO SCH (08:29)
[2022-02-07] MEDS: CRANBERRY FRUIT EXTRACT 200 MG CAP PO SCH ×2 (08:30→19:25)
[2022-02-07] MEDS: BACI/NEOMYCIN/POLY OINT 15GM TOP SCH (08:30)
[2022-02-07] MEDS: AMLODIPINE 5 MG TAB PO SCH ×2 (08:30→19:06)
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
[2022-02-08] MEDS: LOPERAMIDE HCL 2 MG CAPSULE PO PRN (05:30)
[2022-02-08] MEDS: atenoloL 25 MG TAB PO SCH (05:30)
[2022-02-08] MEDS: ACETAMINOPHEN 500 MG TAB PO PRN ×2 (05:31→12:42)
[2022-02-08] MEDS: LEVOTHYROXINE SOD 0.05 MG TABLET PO SCH (05:32)
[2022-02-08] MEDS: INSULIN -REGULAR HUMAN 50 UNIT/0.5 ML ML SQ SCH ×2 (07:30→21:00)
[2022-02-08] MEDS: PANTOPRAZOLE 40MG TABLET PO SCH (07:30)
[2022-02-08] MEDS: ENOXAPARIN 30 MG/0.3 ML SQ SCH ×3 (08:00→16:42)
[2022-02-08] MEDS: BACI/NEOMYCIN/POLY OINT 15GM TOP SCH ×2 (08:00→21:08)
[2022-02-08] MEDS: METFORMIN HCL 500 MG TAB PO SCH (08:00)
[2022-02-08] MEDS: FOLIC ACID 1 MG TABLET PO SCH ×2 (08:00→12:40)
[2022-02-08] MEDS: AMLODIPINE 5 MG TAB PO SCH ×2 (08:00→19:58)
[2022-02-08] MEDS: VALSARTAN 160 MG TAB PO SCH ×2 (08:00→19:58)
[2022-02-08] MEDS: CRANBERRY FRUIT EXTRACT 200 MG CAP PO SCH ×2 (08:00→19:58)
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
[2022-02-09 04:54] LABS: Absolute Lymphocytes (CBC) 2.5 K/uL (0.7-4.9); Hematocrit 31.6 % (36.0-45.0); Lymphocytes % 38.8 % (15.3-44.8); MCV 91.7 fL (80-100); MPV 9.7 fL (7.6-11.3); RBC Red Blood Cell Count 3.44 M/uL (3.86-4.86)
[2022-02-09] MEDS: atenoloL 25 MG TAB PO SCH (05:05)
[2022-02-09] MEDS: LEVOTHYROXINE SOD 0.05 MG TABLET PO SCH (05:05)
[2022-02-09 05:09] LABS: Albumin 3.1 g/dL (3.4-5.0); Magnesium 2.2 mg/dL (1.8-2.4); Potassium 3.9 mmol/L (3.5-5.1); Prealbumin 23.3 mg/dL (20-40)
[2022-02-09] MEDS: INSULIN -REGULAR HUMAN 50 UNIT/0.5 ML ML SQ SCH ×2 (07:13→20:06)
[2022-02-09] MEDS: ACETAMINOPHEN 500 MG TAB PO PRN (07:14)
[2022-02-09] MEDS: PANTOPRAZOLE 40MG TABLET PO SCH (07:15)
[2022-02-09] MEDS: METFORMIN HCL 500 MG TAB PO SCH (07:36)
[2022-02-09] MEDS: AMLODIPINE 5 MG TAB PO SCH ×2 (07:36→19:27)
[2022-02-09] MEDS: BACI/NEOMYCIN/POLY OINT 15GM TOP SCH (07:36)
[2022-02-09] MEDS: CRANBERRY FRUIT EXTRACT 200 MG CAP PO SCH ×2 (07:36→19:26)
[2022-02-09] MEDS: VALSARTAN 160 MG TAB PO SCH ×2 (07:37→19:27)
[2022-02-09] MEDS: FOLIC ACID 1 MG TABLET PO SCH (07:37)
[2022-02-09] MEDS: ENOXAPARIN 30 MG/0.3 ML SQ SCH (16:26)
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
[2022-02-10] MEDS: LEVOTHYROXINE SOD 0.05 MG TABLET PO SCH (05:06)
[2022-02-10] MEDS: atenoloL 25 MG TAB PO SCH (05:06)
[2022-02-10] MEDS: INSULIN -REGULAR HUMAN 50 UNIT/0.5 ML ML SQ SCH ×2 (07:30→20:25)
[2022-02-10] MEDS: FOLIC ACID 1 MG TABLET PO SCH (08:37)
[2022-02-10] MEDS: CRANBERRY FRUIT EXTRACT 200 MG CAP PO SCH ×2 (08:37→19:04)
[2022-02-10] MEDS: VALSARTAN 160 MG TAB PO SCH ×2 (08:37→19:04)
[2022-02-10] MEDS: METFORMIN HCL 500 MG TAB PO SCH (08:37)
[2022-02-10] MEDS: PANTOPRAZOLE 40MG TABLET PO SCH (08:38)
[2022-02-10] MEDS: AMLODIPINE 5 MG TAB PO SCH ×2 (08:38→19:05)
[2022-02-10] MEDS: BACI/NEOMYCIN/POLY OINT 15GM TOP SCH (08:56)
--- NOTE | 2022-02-10 09:01 | P.RH.PN ---
Estimated Length of Stay: 35 Expected Discharge Date: 03/01/22 Vital Signs: Last Vital Signs Temp 97.7 F 02/10/22 08:00 Pulse 65 02/10/22 08:38 Resp 18 02/10/22 08:00 BP 134/59 L 02/10/22 08:38 Pulse Ox 98 02/10/22 08:00 Laboratory: Laboratory Last Values WBC 6.40 K/uL (4.3-10.9) 02/09/22 04:13 RBC 3.44 M/uL (3.86-4.86) L 02/09/22 04:13 Hgb 10.8 g/dL (12.0-15.0) L 02/09/22 04:13 Hct 31.6 % (36.0-45.0) L 02/09/22 04:13 MCV 91.7 fL (80-100) 02/09/22 04:13 MCH 31.3 pg (27.0-35.0) 02/09/22 04:13 MCHC 34.1 g/dL (32.0-36.0) 02/09/22 04:13 RDW 15.6 % (12.1-15.2) H 02/09/22 04:13 Plt Count 223 K/uL (152-406) 02/09/22 04:13 MPV 9.7 fL (7.6-11.3) 02/09/22 04:13 Neutrophils % 48.2 % (41.7-73.7) 02/09/22 04:13 Lymphocytes % 38.8 % (15.3-44.8) 02/09/22 04:13 Monocytes % 10.0 % (3.3-12.3) 02/09/22 04:13 Eosinophils % 2.4 % (0-4.4) 02/09/22 04:13 Basophils % 0.6 % (0-1.3) 02/09/22 04:13 Absolute Neutrophils 3.1 K/uL (1.8-8.0) 02/09/22 04:13 Absolute Lymphocytes 2.5 K/uL (0.7-4.9) 02/09/22 04:13 Absolute Monocytes 0.6 K/uL (0.1-1.3) 02/09/22 04:13 Absolute Eosinophils 0.2 K/uL (0-0.5) 02/09/22 04:13 Absolute Basophils 0.0 K/uL (0-0.5) 02/09/22 04:13 Sodium 138 mmol/L (136-145) 02/09/22 04:13 Potassium 3.9 mmol/L (3.5-5.1) 02/09/22 04:13 Chloride 109 mmol/L (98-107) H 02/09/22 04:13 Carbon Dioxide 23 mmol/L (21-32) 02/09/22 04:13 Anion Gap 9.9 mEq/L (5.0-15.0) 02/09/22 04:13 BUN 20 mg/dL (7-18) H 02/09/22 04:13 Creatinine 0.60 mg/dL (0.55-1.3) 02/09/22 04:13 Est GFR (CKD-EPI) 89 ml/min (=/>90) L 02/09/22 04:13 Glucose 108 mg/dL (74-106) H 02/09/22 04:13 POC Glucose 107 mg/dL (65-120) 02/10/22 07:15 Calcium 9.2 mg/dL (8.5-10.1) 02/09/22 04:13 Magnesium 2.2 mg/dL (1.8-2.4) 02/09/22 04:13 Albumin 3.1 g/dL (3.4-5.0) L 02/09/22 04:13 Prealbumin 23.3 mg/dL (20-40) 02/09/22 04:13 Urine Color Yellow (Yellow) 01/08/22 00:20 Urine Clarity Clear (Clear) 01/08/22 00:20 Urine pH 6.5 (5.0-7.0) 01/08/22 00:20 Ur Specific [place] 1.019 (1.005-1.030) 01/08/22 00:20 Glucose (UA)(Auto) Negative (Negative) 01/08/22 00:20 Urine Ketones Negative (Negative) 01/08/22 00:20 Urine Blood Negative (Negative) 01/08/22 00:20 Urine Nitrite Negative (Negative) 01/08/22 00:20 Urine Bilirubin Negative (Negative) 01/08/22 00:20 Urine Urobilinogen Normal (Normal) 01/08/22 00:20 Ur Leukocyte Esterase 250 [place]/uL (Negative) H 01/08/22 00:20 Urine RBC <5 /HPF (None Seen) 01/08/22 00:20 Urine WBC <5 /HPF (<5) 01/08/22 00:20 Ur Squamous Epith Cells <5 /HPF (None Seen) 01/08/22 00:20 Calcium Oxalate Crystal Few /HPF (None Seen) 01/08/22 00:20 Urine Bacteria <20 /HPF (<20) 01/08/22 00:20 Urine Mucus Slight /HPF (None Seen) 01/08/22 00:20 Urine Total Protein Negative (Negative) 01/08/22 00:20 SARS-CoV-2 Rap RNA(RT-PCR) Negative (NEGATIVE) 02/10/22 04:00 Weight: 178 lb Wound Present: Yes Closed Surgical Incision Present: Yes Negative Pressure Wound Therapy Present: No Physician Update: Her labs are stable. She has improved sliding board transfers and car transfers to be done today with mod assistance. Summary: Patient's care plan and jail goals have been reviewed and revised as necessary. Please see the Rehabilitation Signature page for all necessary signatures.
[2022-02-10] MEDS: ENOXAPARIN 30 MG/0.3 ML SQ SCH (17:33)
[2022-02-10] MEDS: ACETAMINOPHEN 500 MG TAB PO PRN (19:13)
[2022-02-11] MEDS: atenoloL 25 MG TAB PO SCH (05:07)
[2022-02-11] MEDS: LEVOTHYROXINE SOD 0.05 MG TABLET PO SCH (05:08)
[2022-02-11] MEDS: INSULIN -REGULAR HUMAN 50 UNIT/0.5 ML ML SQ SCH ×2 (07:30→20:02)
[2022-02-11] MEDS: VALSARTAN 160 MG TAB PO SCH ×2 (08:00→20:02)
[2022-02-11] MEDS: PANTOPRAZOLE 40MG TABLET PO SCH (08:01)
[2022-02-11] MEDS: AMLODIPINE 5 MG TAB PO SCH ×2 (08:04→20:00)
[2022-02-11] MEDS: FOLIC ACID 1 MG TABLET PO SCH (08:04)
[2022-02-11] MEDS: CRANBERRY FRUIT EXTRACT 200 MG CAP PO SCH ×2 (08:05→20:00)
[2022-02-11] MEDS: METFORMIN HCL 500 MG TAB PO SCH (08:05)
[2022-02-11] MEDS: BACI/NEOMYCIN/POLY OINT 15GM TOP SCH (08:06)
[2022-02-11] MEDS: METHOTREXATE 2.5 MG TAB PO SCH (08:09)
[2022-02-11] MEDS: ENOXAPARIN 30 MG/0.3 ML SQ SCH (16:37)
[2022-02-11] MEDS: LOPERAMIDE HCL 2 MG CAPSULE PO PRN ×2 (16:37→20:10)
[2022-02-12] MEDS: LEVOTHYROXINE SOD 0.05 MG TABLET PO SCH (05:12)
[2022-02-12] MEDS: atenoloL 25 MG TAB PO SCH (05:12)
[2022-02-12] MEDS: INSULIN -REGULAR HUMAN 50 UNIT/0.5 ML ML SQ SCH ×2 (07:30→19:55)
[2022-02-12] MEDS: VALSARTAN 160 MG TAB PO SCH ×2 (08:00→19:53)
[2022-02-12] MEDS: PANTOPRAZOLE 40MG TABLET PO SCH (08:38)
[2022-02-12] MEDS: CRANBERRY FRUIT EXTRACT 200 MG CAP PO SCH ×2 (08:38→19:55)
[2022-02-12] MEDS: FOLIC ACID 1 MG TABLET PO SCH (08:38)
[2022-02-12] MEDS: METFORMIN HCL 500 MG TAB PO SCH (08:38)
[2022-02-12] MEDS: AMLODIPINE 5 MG TAB PO SCH ×2 (08:39→19:54)
[2022-02-12] MEDS: BACI/NEOMYCIN/POLY OINT 15GM TOP SCH (08:39)
[2022-02-12] MEDS: ENOXAPARIN 30 MG/0.3 ML SQ SCH (16:04)
[2022-02-13] MEDS: LOPERAMIDE HCL 2 MG CAPSULE PO PRN (00:13)
[2022-02-13] MEDS: atenoloL 25 MG TAB PO SCH (05:03)
[2022-02-13] MEDS: LEVOTHYROXINE SOD 0.05 MG TABLET PO SCH (05:31)
[2022-02-13] MEDS: INSULIN -REGULAR HUMAN 50 UNIT/0.5 ML ML SQ SCH ×2 (07:30→21:00)
[2022-02-13] MEDS: PANTOPRAZOLE 40MG TABLET PO SCH (07:30)
[2022-02-13] MEDS: AMLODIPINE 5 MG TAB PO SCH ×2 (07:56→19:45)
[2022-02-13] MEDS: BACI/NEOMYCIN/POLY OINT 15GM TOP SCH (07:56)
[2022-02-13] MEDS: METFORMIN HCL 500 MG TAB PO SCH (07:56)
[2022-02-13] MEDS: FOLIC ACID 1 MG TABLET PO SCH (07:56)
[2022-02-13] MEDS: CRANBERRY FRUIT EXTRACT 200 MG CAP PO SCH ×2 (07:56→19:45)
[2022-02-13] MEDS: ACETAMINOPHEN 500 MG TAB PO PRN (14:34)
[2022-02-13] MEDS: ENOXAPARIN 30 MG/0.3 ML SQ SCH (16:31)
[2022-02-13] MEDS: VALSARTAN 160 MG TAB PO SCH (19:45)
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
[2022-02-14] MEDS: atenoloL 25 MG TAB PO SCH (05:12)
[2022-02-14] MEDS: LEVOTHYROXINE SOD 0.05 MG TABLET PO SCH (05:12)
[2022-02-14] MEDS: ACETAMINOPHEN 500 MG TAB PO PRN ×2 (07:00→20:05)
[2022-02-14] MEDS: PANTOPRAZOLE 40MG TABLET PO SCH (07:00)
[2022-02-14] MEDS: INSULIN -REGULAR HUMAN 50 UNIT/0.5 ML ML SQ SCH ×2 (07:30→20:06)
[2022-02-14] MEDS: FOLIC ACID 1 MG TABLET PO SCH (07:36)
[2022-02-14] MEDS: CRANBERRY FRUIT EXTRACT 200 MG CAP PO SCH ×2 (07:36→20:06)
[2022-02-14] MEDS: AMLODIPINE 5 MG TAB PO SCH ×2 (07:36→20:06)
[2022-02-14] MEDS: METFORMIN HCL 500 MG TAB PO SCH (07:37)
[2022-02-14] MEDS: BACI/NEOMYCIN/POLY OINT 15GM TOP SCH (07:38)
[2022-02-14] MEDS: ENOXAPARIN 30 MG/0.3 ML SQ SCH (17:13)
[2022-02-14] MEDS: VALSARTAN 160 MG TAB PO SCH (20:06)
[2022-02-15] MEDS: atenoloL 25 MG TAB PO SCH (06:00)
[2022-02-15] MEDS: LEVOTHYROXINE SOD 0.05 MG TABLET PO SCH (06:30)
[2022-02-15] MEDS: INSULIN -REGULAR HUMAN 50 UNIT/0.5 ML ML SQ SCH ×2 (07:21→20:13)
[2022-02-15] MEDS: BACI/NEOMYCIN/POLY OINT 15GM TOP SCH (08:00)
[2022-02-15] MEDS: AMLODIPINE 5 MG TAB PO SCH ×2 (08:00→19:42)
[2022-02-15] MEDS: FOLIC ACID 1 MG TABLET PO SCH (08:42)
[2022-02-15] MEDS: PANTOPRAZOLE 40MG TABLET PO SCH (08:42)
[2022-02-15] MEDS: CRANBERRY FRUIT EXTRACT 200 MG CAP PO SCH ×2 (08:42→19:43)
[2022-02-15] MEDS: METFORMIN HCL 500 MG TAB PO SCH (08:46)
[2022-02-15] MEDS: ACETAMINOPHEN 500 MG TAB PO PRN ×2 (08:46→19:43)
[2022-02-15] MEDS: ENOXAPARIN 30 MG/0.3 ML SQ SCH (16:35)
[2022-02-15] MEDS: VALSARTAN 160 MG TAB PO SCH (19:43)
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
[2022-02-16 04:29] LABS: Absolute Lymphocytes (CBC) 2.3 K/uL (0.7-4.9); MCV 90.9 fL (80-100); MPV 9.4 fL (7.6-11.3)
[2022-02-16 04:52] LABS: Albumin 2.8 g/dL (3.4-5.0); Magnesium 2.1 mg/dL (1.8-2.4); Potassium 3.6 mmol/L (3.5-5.1)
[2022-02-16] MEDS: LEVOTHYROXINE SOD 0.05 MG TABLET PO SCH (05:15)
[2022-02-16] MEDS: atenoloL 25 MG TAB PO SCH (05:15)
[2022-02-16] MEDS: INSULIN -REGULAR HUMAN 50 UNIT/0.5 ML ML SQ SCH ×2 (07:30→20:05)
[2022-02-16] MEDS: AMLODIPINE 5 MG TAB PO SCH ×2 (08:00→19:41)
[2022-02-16] MEDS: BACI/NEOMYCIN/POLY OINT 15GM TOP SCH (08:00)
[2022-02-16] MEDS: CRANBERRY FRUIT EXTRACT 200 MG CAP PO SCH ×2 (08:03→19:40)
[2022-02-16] MEDS: FOLIC ACID 1 MG TABLET PO SCH (08:04)
[2022-02-16] MEDS: PANTOPRAZOLE 40MG TABLET PO SCH (08:04)
[2022-02-16] MEDS: ACETAMINOPHEN 500 MG TAB PO PRN (08:04)
[2022-02-16] MEDS: METFORMIN HCL 500 MG TAB PO SCH (09:18)
[2022-02-16] MEDS ORDERED: MECLIZINE HCL 12.5 MG TAB PO PRN (13:47)
[2022-02-16] MEDS: ENOXAPARIN 30 MG/0.3 ML SQ SCH (16:13)
[2022-02-16] MEDS: VALSARTAN 160 MG TAB PO SCH (19:42)
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
[2022-02-17] MEDS: atenoloL 25 MG TAB PO SCH (05:28)
[2022-02-17] MEDS: LEVOTHYROXINE SOD 0.05 MG TABLET PO SCH (05:28)
[2022-02-17] MEDS: INSULIN -REGULAR HUMAN 50 UNIT/0.5 ML ML SQ SCH ×2 (07:30→20:32)
[2022-02-17] MEDS: METFORMIN HCL 500 MG TAB PO SCH (07:31)
[2022-02-17] MEDS: AMLODIPINE 5 MG TAB PO SCH ×2 (07:31→19:28)
[2022-02-17] MEDS: FOLIC ACID 1 MG TABLET PO SCH (07:32)
[2022-02-17] MEDS: CRANBERRY FRUIT EXTRACT 200 MG CAP PO SCH ×2 (07:32→19:27)
[2022-02-17] MEDS: PANTOPRAZOLE 40MG TABLET PO SCH (07:32)
--- NOTE | 2022-02-17 09:06 | P.RH.PN ---
Estimated Length of Stay: 42 Expected Discharge Date: 02/20/22 Discharge Disposition Plan: Home Family Support: Yes Nursing Home Goal: Mobility, Transfers, Self Care Vital Signs: Last Vital Signs Temp 98.0 F 02/17/22 07:16 Pulse 68 02/17/22 07:31 Resp 18 02/17/22 07:16 BP 138/59 L 02/17/22 07:31 Pulse Ox 95 02/17/22 07:16 Laboratory: Laboratory Last Values WBC 6.90 K/uL (4.3-10.9) 02/16/22 04:16 RBC 3.30 M/uL (3.86-4.86) L 02/16/22 04:16 Hgb 10.1 g/dL (12.0-15.0) L 02/16/22 04:16 Hct 30.0 % (36.0-45.0) L 02/16/22 04:16 MCV 90.9 fL (80-100) 02/16/22 04:16 MCH 30.6 pg (27.0-35.0) 02/16/22 04:16 MCHC 33.6 g/dL (32.0-36.0) 02/16/22 04:16 RDW 15.6 % (12.1-15.2) H 02/16/22 04:16 Plt Count 197 K/uL (152-406) 02/16/22 04:16 MPV 9.4 fL (7.6-11.3) 02/16/22 04:16 Neutrophils % 54.1 % (41.7-73.7) 02/16/22 04:16 Lymphocytes % 34.0 % (15.3-44.8) 02/16/22 04:16 Monocytes % 8.9 % (3.3-12.3) 02/16/22 04:16 Eosinophils % 2.0 % (0-4.4) 02/16/22 04:16 Basophils % 1.0 % (0-1.3) 02/16/22 04:16 Absolute Neutrophils 3.7 K/uL (1.8-8.0) 02/16/22 04:16 Absolute Lymphocytes 2.3 K/uL (0.7-4.9) 02/16/22 04:16 Absolute Monocytes 0.6 K/uL (0.1-1.3) 02/16/22 04:16 Absolute Eosinophils 0.1 K/uL (0-0.5) 02/16/22 04:16 Absolute Basophils 0.1 K/uL (0-0.5) 02/16/22 04:16 Sodium 143 mmol/L (136-145) 02/16/22 04:16 Potassium 3.6 mmol/L (3.5-5.1) 02/16/22 04:16 Chloride 112 mmol/L (98-107) H 02/16/22 04:16 Carbon Dioxide 23 mmol/L (21-32) 02/16/22 04:16 Anion Gap 11.6 mEq/L (5.0-15.0) 02/16/22 04:16 BUN 8 mg/dL (7-18) 02/16/22 04:16 Creatinine 0.58 mg/dL (0.55-1.3) 02/16/22 04:16 Est GFR (CKD-EPI) 90 ml/min (=/>90) 02/16/22 04:16 Glucose 103 mg/dL (74-106) 02/16/22 04:16 POC Glucose 104 mg/dL (65-120) 02/17/22 07:07 Calcium 8.9 mg/dL (8.5-10.1) 02/16/22 04:16 Magnesium 2.1 mg/dL (1.8-2.4) 02/16/22 04:16 Albumin 2.8 g/dL (3.4-5.0) L 02/16/22 04:16 Prealbumin 15.0 mg/dL (20-40) L 02/16/22 04:16 Urine Color Yellow (Yellow) 01/08/22 00:20 Urine Clarity Clear (Clear) 01/08/22 00:20 Urine pH 6.5 (5.0-7.0) 01/08/22 00:20 Ur Specific [place] 1.019 (1.005-1.030) 01/08/22 00:20 Glucose (UA)(Auto) Negative (Negative) 01/08/22 00:20 Urine Ketones Negative (Negative) 01/08/22 00:20 Urine Blood Negative (Negative) 01/08/22 00:20 Urine Nitrite Negative (Negative) 01/08/22 00:20 Urine Bilirubin Negative (Negative) 01/08/22 00:20 Urine Urobilinogen Normal (Normal) 01/08/22 00:20 Ur Leukocyte Esterase 250 [place]/uL (Negative) H 01/08/22 00:20 Urine RBC <5 /HPF (None Seen) 01/08/22 00:20 Urine WBC <5 /HPF (<5) 01/08/22 00:20 Ur Squamous Epith Cells <5 /HPF (None Seen) 01/08/22 00:20 Calcium Oxalate Crystal Few /HPF (None Seen) 01/08/22 00:20 Urine Bacteria <20 /HPF (<20) 01/08/22 00:20 Urine Mucus Slight /HPF (None Seen) 01/08/22 00:20 Urine Total Protein Negative (Negative) 01/08/22 00:20 SARS-CoV-2 Rap RNA(RT-PCR) Negative (NEGATIVE) 02/17/22 05:32 Weight: 178 lb Wound Present: Yes Closed Surgical Incision Present: Yes Negative Pressure Wound Therapy Present: No Physician Update: She is doing much better with all therapy. Her left lower extremity wound sight is showing no significant fluid drainage. She may be disch arged next week. Summary: Patient's care plan and prison goals have been reviewed and revised as necessary. Please see the Rehabilitation Signature page for all necessary s ignatures.
[2022-02-17] MEDS: ENOXAPARIN 30 MG/0.3 ML SQ SCH (18:04)
[2022-02-17] MEDS: AMINO ACIDS/PROTEIN HYDROLYS 30 ML LIQUID.PKT PO SCH (19:29)
[2022-02-17] MEDS: VALSARTAN 160 MG TAB PO SCH (19:29)
[2022-02-18] MEDS: atenoloL 25 MG TAB PO SCH (05:15)
[2022-02-18] MEDS: LEVOTHYROXINE SOD 0.05 MG TABLET PO SCH (05:15)
[2022-02-18] MEDS: PANTOPRAZOLE 40MG TABLET PO SCH (07:20)
[2022-02-18] MEDS: INSULIN -REGULAR HUMAN 50 UNIT/0.5 ML ML SQ SCH ×2 (07:30→20:20)
[2022-02-18] MEDS: METHOTREXATE 2.5 MG TAB PO SCH (07:58)
[2022-02-18] MEDS: CRANBERRY FRUIT EXTRACT 200 MG CAP PO SCH ×2 (07:58→20:17)
[2022-02-18] MEDS: FOLIC ACID 1 MG TABLET PO SCH (07:58)
[2022-02-18] MEDS: METFORMIN HCL 500 MG TAB PO SCH (07:58)
[2022-02-18] MEDS: AMINO ACIDS/PROTEIN HYDROLYS 30 ML LIQUID.PKT PO SCH ×2 (07:59→20:00)
[2022-02-18] MEDS: AMLODIPINE 5 MG TAB PO SCH ×2 (07:59→20:17)
[2022-02-18] MEDS: ENOXAPARIN 30 MG/0.3 ML SQ SCH (16:30)
[2022-02-18] MEDS: VALSARTAN 160 MG TAB PO SCH (20:18)
[2022-02-18] MEDS: LOPERAMIDE HCL 2 MG CAPSULE PO PRN (21:53)
[2022-02-19] MEDS: LEVOTHYROXINE SOD 0.05 MG TABLET PO SCH (05:16)
[2022-02-19] MEDS: atenoloL 25 MG TAB PO SCH (05:16)
[2022-02-19] MEDS: INSULIN -REGULAR HUMAN 50 UNIT/0.5 ML ML SQ SCH ×2 (07:06→20:14)
[2022-02-19] MEDS: AMINO ACIDS/PROTEIN HYDROLYS 30 ML LIQUID.PKT PO SCH ×2 (08:00→19:46)
[2022-02-19] MEDS: METFORMIN HCL 500 MG TAB PO SCH (08:08)
[2022-02-19] MEDS: FOLIC ACID 1 MG TABLET PO SCH (08:08)
[2022-02-19] MEDS: PANTOPRAZOLE 40MG TABLET PO SCH (08:08)
[2022-02-19] MEDS: CRANBERRY FRUIT EXTRACT 200 MG CAP PO SCH ×2 (08:08→19:45)
[2022-02-19] MEDS: AMLODIPINE 5 MG TAB PO SCH ×2 (08:09→19:45)
[2022-02-19] MEDS: ACETAMINOPHEN 500 MG TAB PO PRN (13:54)
[2022-02-19] MEDS: ENOXAPARIN 30 MG/0.3 ML SQ SCH (16:31)
[2022-02-19] MEDS: VALSARTAN 160 MG TAB PO SCH (19:45)
[2022-02-20] MEDS: atenoloL 25 MG TAB PO SCH (05:14)
[2022-02-20] MEDS: LEVOTHYROXINE SOD 0.05 MG TABLET PO SCH (05:14)
[2022-02-20] MEDS: INSULIN -REGULAR HUMAN 50 UNIT/0.5 ML ML SQ SCH ×2 (07:30→20:22)
[2022-02-20] MEDS: PANTOPRAZOLE 40MG TABLET PO SCH (07:34)
[2022-02-20] MEDS: ACETAMINOPHEN 500 MG TAB PO PRN (07:34)
[2022-02-20] MEDS: METFORMIN HCL 500 MG TAB PO SCH (07:43)
[2022-02-20] MEDS: CRANBERRY FRUIT EXTRACT 200 MG CAP PO SCH ×2 (07:43→20:21)
[2022-02-20] MEDS: FOLIC ACID 1 MG TABLET PO SCH (07:43)
[2022-02-20] MEDS: AMLODIPINE 5 MG TAB PO SCH ×2 (07:43→20:21)
[2022-02-20] MEDS: AMINO ACIDS/PROTEIN HYDROLYS 30 ML LIQUID.PKT PO SCH ×3 (07:44→20:00)
[2022-02-20] MEDS: ENOXAPARIN 30 MG/0.3 ML SQ SCH (16:52)
[2022-02-20] MEDS: VALSARTAN 160 MG TAB PO SCH (20:21)
[2022-02-21] MEDS: atenoloL 25 MG TAB PO SCH (05:31)
[2022-02-21] MEDS: LEVOTHYROXINE SOD 0.05 MG TABLET PO SCH (05:31)
[2022-02-21] MEDS: INSULIN -REGULAR HUMAN 50 UNIT/0.5 ML ML SQ SCH ×2 (07:11→20:17)
[2022-02-21] MEDS: PANTOPRAZOLE 40MG TABLET PO SCH (07:12)
[2022-02-21] MEDS: ACETAMINOPHEN 500 MG TAB PO PRN (07:12)
[2022-02-21] MEDS: FOLIC ACID 1 MG TABLET PO SCH (07:55)
[2022-02-21] MEDS: METFORMIN HCL 500 MG TAB PO SCH (07:55)
[2022-02-21] MEDS: AMLODIPINE 5 MG TAB PO SCH ×2 (07:55→19:24)
[2022-02-21] MEDS: AMINO ACIDS/PROTEIN HYDROLYS 30 ML LIQUID.PKT PO SCH ×2 (07:56→19:24)
[2022-02-21] MEDS: CRANBERRY FRUIT EXTRACT 200 MG CAP PO SCH ×2 (07:56→19:23)
[2022-02-21] MEDS: VALSARTAN 160 MG TAB PO SCH (19:23)
[2022-02-21] MEDS: APIXABAN 2.5 MG TABLET PO SCH (19:24)
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
[2022-02-22] MEDS: atenoloL 25 MG TAB PO SCH (05:31)
[2022-02-22] MEDS: LEVOTHYROXINE SOD 0.05 MG TABLET PO SCH (05:31)
[2022-02-22 07:02] VITALS: BP 116/58; TEMP 97.9
[2022-02-22] MEDS: INSULIN -REGULAR HUMAN 50 UNIT/0.5 ML ML SQ SCH (07:30)
[2022-02-22] MEDS: AMLODIPINE 5 MG TAB PO SCH (08:00)
[2022-02-22] MEDS: AMINO ACIDS/PROTEIN HYDROLYS 30 ML LIQUID.PKT PO SCH (08:00)
[2022-02-22] MEDS: METFORMIN HCL 500 MG TAB PO SCH (08:00)
[2022-02-22] MEDS: PANTOPRAZOLE 40MG TABLET PO SCH (08:10)
[2022-02-22] MEDS: APIXABAN 2.5 MG TABLET PO SCH (08:11)
[2022-02-22] MEDS: CRANBERRY FRUIT EXTRACT 200 MG CAP PO SCH (08:11)
[2022-02-22] MEDS: FOLIC ACID 1 MG TABLET PO SCH (08:12)
[2022-02-22] MEDS: ACETAMINOPHEN 500 MG TAB PO PRN (08:45)
== END 2022-02-22 10:30 | disposition home health service (06) | DRG 560 ==
LOC: 5TH 01-06 13:03
PROVIDERS: ADMIT Psychiatry & Neurology Neurology with Special Qualifications in Child Neurology; ATTEND Psychiatry & Neurology Neurology with Special Qualifications in Child Neurology
PROC: 0HBRXZZ Excision of Toe Nail, External Approach (ICD-10-PCS; principal; 2022-01-19)
DX: S72.432 Displaced fracture of medial condyle of left femur (principal); D62 Acute posthemorrhagic anemia; D68.9 Coagulation defect, unspecified; E46 Unspecified protein-calorie malnutrition; I10 Essential (primary) hypertension; G89.11 Acute pain due to trauma; E11.9 Type 2 diabetes mellitus without complications; K21.9 Gastro-esophageal reflux disease without esophagitis; B35.1 Tinea unguium; F41.9 Anxiety disorder, unspecified; E03.9 Hypothyroidism, unspecified; K59.00 Constipation, unspecified; M06.80 Other specified rheumatoid arthritis, unspecified site; S22.49XD Multiple fractures of ribs, unspecified side, subsequent encounter for fracture with routine healing; S82.842E Displaced bimalleolar fracture of left lower leg, subsequent encounter for open fracture type I or II with routine healing; Z88.0 Allergy status to penicillin; Z60.2 Problems related to living alone; Z68.30 Body mass index [BMI] 30.0-30.9, adult; Z90.49 Acquired absence of other specified parts of digestive tract; Z79.84 Long term (current) use of oral hypoglycemic drugs; Z79.899 Other long term (current) drug therapy; Z96.653 Presence of artificial knee joint, bilateral; Z96.621 Presence of right artificial elbow joint; Z90.710 Acquired absence of both cervix and uterus; Z20.822 Contact with and (suspected) exposure to COVID-19
CPT/HCPCS: 36415; 80048; 81001; 82040; 82947; 83735; 84134; 85025; 87077; 87086; 87088; 87186; 97110; 97112; 97124; 97140; 97163; 97165; 97530; 97542; J1650; J1815; J8610; Q0162; U0003

== ENCOUNTER 2024-11-29 12:02 | Emergency (ER) | payer OTHER ==
--- OUTSIDE RECORDS SUMMARY | 2024-11-29 12:07 | XMS REPORT | Continuity of Care Document ---
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 kg [facility] BMI 2021-03-12 20:36:00 31.41 kg/m2 [facility] Oxygen saturation in Arterial blood by Pulse oximetry 2021-03-12 20:36:00 99 /min [facility] oximetry 2020-12-31 13:40:00 97 % Commo n [facility] respiratory rate 2020-12-31 13:40:00 16 /min [facility] blood pressure systolic 2020-12-31 13:40:00 128 mm[Hg] [facility] blood pressure diastolic 2020-12-31 13:40:00 59 mm[Hg] [facility] height 2020-12-31 13:40:00 63.00 [in_i] Com [facility] weight 2020-12-31 13:40:00 181.0 [lb_av] Co mmon [facility] temperature 2020-12-31 13:40:00 97.0 [degF] Com [facility] bmi 2020-12-31 13:40:00 32.06 kg/m2 Comm on [facility] Temperature Oral (F) 2018-02-17 11:06:00 98.3 F [facility] Respitory Rate 2018-02-17 11:06:00 [facility] Systolic (mm Hg) 2018-02-17 11:06:00 [facility] Diastolic (mm Hg) 2018-02-17 11:06:00 [facility] Respitory Rate 2018-02-17 10:25:00 [facility] Systolic (mm Hg) 2018-02-17 10:25:00 [facility] Diastolic (mm Hg) 2018-02-17 10:25:00 [facility] Temperature Oral (F) 2018-02-17 10:25:00 98.3 F [facility] Systolic (mm Hg) 2018-02-17 08:52:00 [facility] Diastolic (mm Hg) 2018-02-17 08:52:00 [facility] Respitory Rate 2018-02-17 08:52:00 [facility] Heart Rate 2018-02-17 08:52:00 [facility] Heart Rate 2018-02-17 08:05:00 [facility] Weight 2018-02-17 02:58:00 [facility] BMI Calculated 2018-02-17 02:58:00 [facility] Height 2018-02-17 02:58:00 160.02 cm [facility] Temperature Oral (F) 2018-02-17 02:58:00 98.1 F [facility] Heart Rate 2018-02-17 02:58:00 [facility] Procedures Procedure Date / Time Performed Performing Clinician Source [id number] CONSENT 2021-03-15 06:01:00 Doctor Unas signed, [place] [facility] POCT GRP A STREP (MOLECULAR) 2021-03-12 20:43:00 Jeanette Peterson [facility] HIP, 1 VIEW, UNILATERAL 2015-10-18 17:18:00 Mynor Hsieh [facility] OPERATIVE NOTES 2015-10-18 05:01:00 Doctor Unass igned, [place] [facility] HOSPITAL ADMISSION 2015-10-18 05:01:00 Doctor Un assigned, [place] [facility] PHYSICIAN CERTIFICATION STATEMENT 2015-10-18 05:01:00 Doctor Unassigned, [place] [facility] Encounters Start Date/Time End Date/Time Encounter Type Admission Type Attending Clinicians Care Facility Care Department Encounter ID Source 2022-11-08 20:02:58 Outpatient [facility] [id number] [facility] 2022-09-15 11:31:00 Outpatient [facility] [id number] [facility] 2022-07-05 10:04:00 Outpatient Cyndi Sin [facility] [id number] [facility] 2022-06-16 11:14:43 Outpatient [facility] [id number] [facility] 2022-06-15 07:08:28 Outpatient [facility] [id number] [facility] 2022-06-06 08:07:00 Outpatient Cyndi Sin [facility] [id number] [facility] 2022-03-27 10:05:27 Outpatient [facility] [id number] [facility] 2022-02-14 14:09:47 Outpatient [facility] [id number] [facility] 2022-02-10 10:43:49 Outpatient [facility] [id number] [facility] 2022-01-30 07:58:00 Outpatient Anne Cooper STLMLC ST[facility] [id number] [facility] 2022-01-25 08:11:08 Outpatient [facility] [id number] [facility] 2022-01-24 15:51:36 Outpatient [facility] [id number] [facility] 2022-01-17 08:44:02 Outpatient [facility] [id number] [facility] 2022-01-13 08:56:15 Outpatient [facility] [id number] [facility] 2022-01-09 11:53:55 Outpatient [facility] [id number] [facility] 2021-12-13 10:09:23 Outpatient [facility] [id number] [facility] 2021-12-13 06:54:54 Outpatient [facility] [id number] [facility] 2021-10-31 14:20:00 Outpatient Cooper, Na STLMLC STLMLC [id number] [facility] 2021-10-18 11:31:01 Outpatient Cooper, Na STLMLC STLMLC [id number] [facility] 2021-07-08 14:12:00 Outpatient Cooper Na STLMLC STLMLC [id number] [facility] 2021-05-04 13:52:08 Outpatient Cooper, Na STLMLC STLMLC [id number] [facility] 2021-05-04 12:40:15 Outpatient Cooper, Na STLMLC STLMLC [id number] [facility] 2021-05-04 12:39:45 Outpatient Cooper, Na STLMLC STLMLC [id number] [facility] 2021-05-04 12:14:32 Outpatient Cooper, Na STLMLC STLMLC [id number] [facility] 2021-05-04 12:13:16 Outpatient Cooper, Na STLMLC STLMLC [id number] [facility] 2021-05-04 12:12:47 Outpatient Cooper, Na STLMLC STLMLC [id number] [facility] 2021-05-04 11:49:01 Outpatient Cooper, Na STLMLC STLMLC [id number] [facility] 2021-05-04 11:30:51 Outpatient CooperAnne ballesteros STLMLC STLMLC [id number] [facility] 2021-05-04 11:29:21 Outpatient Anne Cooper STLMLC STLMLC [id number] [facility] 2021-05-04 11:00:06 Outpatient Anne Cooper STLMLC STLMLC [id number] [facility] 2021-05-04 10:58:39 Outpatient Anne Cooper STLMLC STLMLC [id number] [facility] 2015-10-18 00:00:00 2024-05-24 04:12:32 Orders Only Doctor Unassigned, [place] Doctor Unassigned, [place] [facility] 1.2.840.114 350.1.13.10 4.2.7.2.686 [id number] [facility] 2016-03-06 00:00:00 2024-05-24 04:01:27 Orders Only Doctor Unassigned, [place] Doctor Unassigned, [place] [facility] 1.2.840.114 350.1.13.10 4.2.7.2.686 [id number] [facility] 2022-12-15 11:00:00 2022-12-15 12:10:24 Office Visit Michael Rodríguez [facility] [address] 1.2.840.114 350.1.13.58 9.2.7.2.686 [id number] [facility] 2022-06-16 11:30:00 2022-06-16 12:19:53 Office Visit Michael Rodríguez [facility] [address] 1.2.840.114 350.1.13.58 9.2.7.2.686 [id number] [facility] 2022-06-06 00:00:00 2022-06-06 00:00:00 (TEL) STLMLC STLMLC [id number] [facility] 2022-04-19 13:15:00 2022-04-19 13:26:34 Office Visit Sanford Sullivan [facility] [address] 1.2.840.114 350.1.13.58 9.2.7.2.686 [id number] [facility] 2022-04-19 13:15:00 2022-04-19 13:15:00 Outpatient [facility] [id number] [facility] 2022-04-14 13:00:00 2022-04-14 13:17:51 Office Visit Michael Rodríguez [facility] [address] 1.2.840.114 350.1.13.58 9.2.7.2.686 [id number] [facility] 2022-03-31 11:30:00 2022-03-31 11:30:00 Outpatient MICHAEL RODRÍGUEZ [facility] [id number] [facility] 2022-03-24 00:00:00 2022-03-24 00:00:00 (TEL) STLMLC STLMLC [id number] [facility] 2022-03-24 00:00:00 2022-03-24 00:00:00 OL DIG E/M SVC 11-20 MIN STLMLC STLMLC [id number] [facility] 2022-03-23 00:00:00 2022-03-23 00:00:00 [id number] 2022-03-15 08:30:00 2022-03-15 08:30:00 Outpatient SANFORD SULLIVAN [facility] [id number] [facility] 2022-03-08 10:30:00 2022-03-08 11:45:29 Office Visit Emiliana De Santiagoguicho [facility] [address] 1.2840.114 350.1.13.58 9.2.7.2.686 [id number] [facility] 2022-03-08 00:00:00 2022-03-08 00:00:00 Outpatient [facility] [id number] [facility] 2022-03-01 10:30:00 2022-03-01 12:15:44 Outpatient MICHAEL RODRÍGUEZ [facility] [id number] [facility] 2022-02-13 11:15:00 2022-02-13 11:15:00 Outpatient SANFORD SULLIVAN [facility] [id number] [facility] 2022-02-08 08:30:00 2022-02-08 09:33:24 Office Visit De SantiagoEmiliana ninoguicho [facility] [address] 1.2840.114 350.1.13.58 9.2.7.2.686 [id number] [facility] 2022-02-08 09:00:00 2022-02-08 09:00:00 Outpatient [facility] [id number] [facility] 2022-01-25 11:30:00 2022-01-25 11:30:00 Office Visit Mahoney Michael Joya [facility] [address] 1.2840.114 350.1.13.58 9.2.7.2.686 [id number] [facility] 2022-01-25 08:00:00 2022-01-25 09:02:25 Office Visit Ubaldo Roper [facility] [address] 1.2840.114 350.1.13.58 9.2.7.2.686 [id number] [facility] 2022-01-25 08:15:00 2022-01-25 08:15:00 Outpatient [facility] [id number] [facility] 2022-01-20 12:00:00 2022-01-20 12:00:00 Outpatient MICHAEL RODRÍGUEZ [facility] [id number] [facility] 2021-12-22 08:30:00 2021-12-22 08:30:00 Outpatient MICHAEL RODRÍGUEZ [facility] [id number] [facility] 2021-12-21 07:30:00 2021-12-21 07:30:00 Outpatient MICHAEL RODRÍGUEZ [facility] [id number] [facility] 2021-12-19 08:00:00 2021-12-19 08:00:00 Outpatient MICHAEL RODRÍGUEZ [facility] [id number] [facility] 2021-12-17 07:30:00 2021-12-17 07:30:00 Outpatient MIKHAIL DEGLADO [facility] [id number] [facility] 2021-12-15 08:45:00 2021-12-15 08:45:00 Outpatient MARRYJOJO [facility] [id number] [facility] 2021-12-13 06:30:00 2021-12-13 06:30:00 Outpatient SANFORD SULLIVAN [facility] [id number] [facility] 2021-12-12 07:30:00 2021-12-12 07:30:00 Outpatient KIM RODRIGUEZ [facility] [id number] [facility] 2021-11-02 00:00:00 2021-11-02 00:00:00 OL DIG E/M SVC 21+ MIN STLMLC STLMLC [id number] [facility] 2021-07-12 00:00:00 2021-07-12 00:00:00 OFFICE VISIT ESTAB PT LEVEL 4 STLMLC STLMLC [id number] [facility] 2021-04-18 00:00:00 2021-04-18 00:00:00 (TEL) STLMLC STLMLC [id number] [facility] 2021-04-12 00:00:00 2021-04-12 00:00:00 OL DIG E/M SVC 11-20 MIN STLMLC STLMLC [id number] [facility] 2021-03-25 00:00:00 2021-03-25 00:00:00 (TEL) STLMLC STLMLC [id number] [facility] 2021-03-15 16:00:05 2021-03-15 17:00:05 Nurse Visit Therapy, Adc Covid David Yu [facility] 1.840.114 350.1.13.10 4.2.7.2.686 [id number] [facility] 2021-03-15 16:00:00 2021-03-15 16:00:00 Outpatient [facility] [id number] [facility] 2021-03-15 00:00:00 2021-03-15 00:00:00 Orders Only Doctor Unassigned, [place] [facility] 1.2840.114 350.1.13.10 4.2.7.2.686 [id number] [facility] 2021-03-15 00:00:00 2021-03-15 00:00:00 (TEL) STLMLC STLMLC [id number] [facility] 2021-03-15 00:00:00 2021-03-15 00:00:00 (TEL) STLMLC STLMLC [id number] [facility] 2021-03-15 00:00:00 2021-03-15 00:00:00 OL DIG E/M SVC 11-20 MIN STLMLC STLMLC [id number] [facility] 2021-03-13 00:00:00 2021-03-13 00:00:00 Telephone Nabeel Eli [facility] 1..840.114 350.1.13.10 4.2.7.2.686 [id number] [facility] 2021-03-13 00:00:00 2021-03-13 00:00:00 Nurse Triage Nabeel Eli [facility] 12.840.114 350.1.13.10 4.2.7.2.686 [id number] [facility] 2021-03-12 15:00:00 2021-03-12 15:06:46 Outpatient R ESTRELLA [facility] [id number] [facility] 2021-03-12 15:00:00 2021-03-12 15:00:00 Outpatient R KRISTEN [facility] [id number] [facility] 2021-03-12 14:33:21 2021-03-12 14:53:21 Urgent Care Jeanette Peterson [facility] MEDICAL OFFICE BUILDING .2.840.114 350.1.13.10 4.2.7.2.686 [id number] [facility] 2021-03-10 00:00:00 2021-03-10 00:00:00 (TEL) STLMLC STLMLC [id number] [facility] 2020-12-31 00:00:00 2020-12-31 00:00:00 OFFICE VISIT ESTAB PT LEVEL 4 STLMLC STLMLC [id number] [facility] 2020-09-30 00:00:00 2020-09-30 00:00:00 Outpatient STLMLC STLMLC [id number] [facility] 2020-06-21 00:00:00 2020-06-21 00:00:00 Outpatient STLMLC STLMLC [id number] [facility] 2020-06-17 00:00:00 2020-06-17 00:00:00 Outpatient STLMLC STLMLC [id number] [facility] 2020-06-16 00:00:00 2020-06-16 00:00:00 Outpatient STLMLC [facility] [id number] [facility] 2020-05-10 00:00:00 2020-05-10 00:00:00 Outpatient STLMLC [facility] [id number] [facility] 2020-03-23 00:00:00 2020-03-23 00:00:00 Outpatient STLMLC [facility]ML[facility] [id number] [facility] 2020-03-15 00:00:00 2020-03-15 00:00:00 Outpatient STLMLC ST[facility] [id number] [facility] 2020-01-02 00:00:00 2020-01-02 00:00:00 Outpatient STLMLC STLMLC [id number] [facility] 2019-11-20 10:58:00 2019-11-20 10:58:[address] [facility] [id number] [facility] 2019-10-17 11:20:00 2019-10-17 11:20:00 [facility] [id number] [facility] 2019-10-07 09:02:00 2019-10-07 09:02:00 [facility] [facility] [id number] [facility] 2019-10-06 10:29:00 2019-10-06 10:29:00 [address] [facility] [id number] [facility] 2019-10-02 08:20:00 2019-10-02 08:20:[address] [facility] [id number] [facility] 2019-09-28 00:02:00 2019-09-28 00:02:00 [facility] [facility] [id number] [facility] 2019-04-21 13:20:00 2019-04-21 13:20:00 [facility] [id number] [facility] 2018-11-28 14:20:00 2018-11-28 14:20:00 [facility] [id number] [facility] 2018-10-17 14:00:00 2018-10-17 14:00:00 [facility] [id number] [facility] 2018-08-29 11:00:00 2018-08-29 11:00:00 [facility] [id number] [facility] 2018-06-06 14:30:00 2018-06-06 14:30:00 [facility] [facility] [id number] [facility] 2018-04-12 11:16:00 2018-04-12 11:16:00 [facility] [id number] [facility] 2018-03-07 14:30:00 2018-03-07 14:30:00 [facility] [id number] [facility] 2018-02-17 02:58:00 2018-02-17 11:08:00 Emergency [facility] [id number] [facility] 2018-01-22 13:47:00 2018-01-22 13:47:[address] [facility] [id number] [facility] 2018-01-08 11:56:00 2018-01-08 11:56:00 [facility] [id number] [facility] 2017-12-05 14:00:00 2017-12-05 14:00:00 [facility] [id number] [facility] 2017-09-04 14:30:00 2017-09-04 14:30:00 [facility] [id number] [facility] Results Test Description Test Time Test Comments Results Result Co [facility]ments [id number] 10:14:00* Test Item Value Reference Range Interpretation Comme nts Lactic Acid Lvl (test code = Lactic Acid Lvl) 1.0 0.5-2.2 [facility] [id number] 06:08:00* Test Item Value Reference Range Interpretation Comme nts Hct (test code = Hct) 36.0 36.0-48.0 [facility] [id number] 06:08:00* Test Item Value Reference Range Interpretation Comme nts Lactic Acid Lvl (test code = Lactic Acid Lvl) 2.5 0.5-2.2 [facility] [id number] 06:08:00* Test Item Value Reference Range Interpretation Comme nts AGAP (test code = AGAP) 15.2 10.0-20.0 [facility], 1 VIEW, [id number] 17:24:00 *.*.*.*.*.*.*.*.*.*.*.*.*.*FINAL*.*.*.*.*.*.*.*.*.*.*.*.*.*.*HISTORY: S/P right hip replacement. FINDINGS: AP view of right hip is obtained with portable technique at12:15 PM Postoperative changes ofright hip replacement noted. Thehardware is in good position. I do not see any displaced acuteintraoperative fracture, although details of the acetabulum and ischiumare poor due to superimposed artifacts of pockets of air. Soft tissueswelling along with air in the soft tissue from surgical dissection noted.Skin will and drainage catheter are in place. CONCLUSION: ?Postoperative changes of right hip replacement. ?Personally interpreted by: SHARON JARQUIN MD /Signed/ SHARON JARQUIN MDUnCarrollton [facility]
[2024-11-29 12:46] LABS: Absolute Lymphocytes (CBC) 1.8 K/uL (0.7-4.9); Hematocrit 36.2 % (36.0-45.0); Hemoglobin 11.9 g/dL (12.0-15.0); MCH 30.7 pg (27.0-35.0); MCHC 32.8 g/dL (32.0-36.0); MCV 93.5 fL (80-100); MPV 9.3 fL (7.6-11.3); Nucleated RBC Absolute Count 0.0 (0-0); Nucleated Red Blood Cells % 0.0 % (0-0); RBC Red Blood Cell Count 3.87 M/uL (3.86-4.86); White Blood Count 7.90 thou/uL (4.3-10.9)
[2024-11-29] MEDS ORDERED: HYDROCODONE/APAP 5/325 MG TAB ONE (12:46)
[2024-11-29 13:08] LABS: Anion Gap 8.9 mEq/L (5.0-15.0); BUN Blood Urea Nitrogen 16.0 mg/dL (7-18); Glucose Level 114.0 mg/dL (74-106); Potassium 3.9 mEq/L (3.5-5.1); Troponin High Sensitivity 4.7 pg/mL (<58.9)
--- NOTE | 2024-11-29 13:39 | EDPHYS ---
Physician Documentation [facility] Name: Pretty Crook Age: 84 yrs Sex: Female : 1940 Arrival Date: 11/29/2024 Time: 12:02 Bed 18 Private MD: ED Physician Jas Brandon HPI: 11/29 12:44 This 84 yrs old Female presents to ER via EMS with complaints of High Blood dr5 Pressure. 12:44 Onset: The symptoms/episode began/occurred acutely. Patient is an 84-year-old female dr5 with history of hypertension and rheumatoid arthritis coming in for elevated blood pressure. Patient was diabetic education this morning and had blood pressure checked which was in the 200s. Patient reports she takes valsartan every evening and has taken it yesterday night. Patient denies chest pain, visual changes, headache, dizziness, vertigo, abdominal pain, nausea, vomiting. Patient reports that she feels fine and has no complaints.. Historical: - Allergies: 12:14 PENICILLINS; ab3 - PMHx: 12:14 Hypertension; RA; ab3 - PSHx: 12:14 Unable to Obtain; ab3 - Immunization history:: Adult Immunizations up to date, Client reports receiving the 2nd dose of the Covid vaccine. - Infectious Disease History:: Denies. - Social history:: Smoking status: Patient/guardian denies using tobacco, the patient reports quitting approximately 65 years ago, Patient/guardian denies using alcohol, street drugs, tobacco products. - Code Status:: Full code. ROS: 12:44 Constitutional: as per hpi dr5 Exam: 12:44 Constitutional: This is a well developed, well nourished patient who is awake, alert, dr5 and in no acute distress. Head/Face: Normocephalic, atraumatic. Eyes: Pupils equal round and reactive to light, extra-ocular motions intact. Lids and lashes normal. Conjunctiva and sclera are non-icteric and not injected. Cornea within normal limits. Periorbital areas with no swelling, redness, or edema. Neck: Trachea midline, no thyromegaly or masses palpated, and no cervical lymphadenopathy. Supple, full range of motion without nuchal rigidity, or vertebral point tenderness. No Meningismus. Chest/axilla: Normal chest wall appearance and motion. Nontender with no deformity. No lesions are appreciated. Cardiovascular: Regular rate and rhythm with a normal S1 and S2. Normal PMI, no JVD. No pulse deficits. Respiratory: Lungs have equal breath sounds bilaterally, clear to auscultation. No rales, rhonchi or wheezes noted. No increased work of breathing, no retractions or nasal flaring. Back: No spinal tenderness. No costovertebral tenderness. Full range of motion. Skin: Warm, dry with normal turgor. Normal color with no rashes, no lesions, and no evidence of cellulitis. MS/ Extremity: Pulses equal, no cyanosis. Neurovascular intact. Full, normal range of motion. Neuro: Awake and alert, GCS 15, oriented to person, place, time, and situation. Cranial nerves II-XII grossly intact. Motor strength 5/5 in all extremities. Sensory grossly intact. Cerebellar exam normal. Normal gait. Vital Signs: 12:09 BP 174 / 79; Pulse 71; Resp 18; Temp 98; Pulse Ox 100% on R/A; Pain 4/10; ab3 12:15 BP 171 / 66; Pulse 74; Resp 17; Pulse Ox 99% on R/A; ab3 12:45 BP 146 / 75; Pulse 64; Resp 17; Pulse Ox 97% on R/A; Pain 7/10; ab3 13:00 BP 165 / 62; Pulse 68; Resp 16; Pulse Ox 99% on R/A; ab3 13:30 BP 149 / 76; Pulse 66; Resp 16; Pulse Ox 98% on R/A; ab3 14:00 BP 148 / 65; Pulse 60; Resp 17; Temp 98(O); Pulse Ox 99% on R/A; Pain 0/10; ab3 12:09 Pain Scale: Adult ab3 12:45 Pain Scale: Adult ab3 14:00 Pain Scale: Adult ab3 12:09 Chronic RA pain to legs, arms, neck; denies new pain ab3 [place] Coma Score: 12:15 Eye Response: spontaneous(4). Motor Response: obeys commands(6). Verbal Response: ab3 oriented(5). Total: 15. MDM: 12:08 Medical Screening Exam initiated dr5 13:45 Differential diagnosis: hypertensive crisis, Electrolyte abnormality, anemia, dr5 hypertension, elevated troponin. Data interpreted: court monitor: rate is 68 beats/min, rhythm is normal sinus rhythm, regular, with no ectopy, Interpretation: normal rate, normal rhythm, Pulse oximetry: is 99 %. Data reviewed: vital signs, nurses notes, lab test result(s), cardiac enzymes, troponin i, CBC, white blood cell count, hemoglobin, hematocrit, platelets, electrolytes, sodium, potassium, chloride, serum bicarbonate, BUN, creatinine, serum glucose. Consideration of Admission/Observation Escalation of care including admission/observation considered. Admission considered patient found to have elevated troponin.. I considered the following discharge prescriptions or medication management in the emergency department I discussed and recommended Over The Counter medications, Medications were administered in the Emergency Department. See MAR. Care significantly affected by the following chronic conditions: Hypertension, Rheumatoid arthritis. Care significantly affected by the following Social Determinants of Health: Poor access to healthcare and/or lack of insurance, Poor access to transportation, Problems related to employment. Counseling: I had a detailed discussion with the patient and/or guardian regarding the historical points, exam findings, and any diagnostic results supporting the discharge/admit diagnosis, the presence of at least one elevated blood pressure reading (>120/80) during this emergency department visit, lab results, the need for outpatient follow up, for definitive care, a family practitioner, to return to the emergency department if symptoms worsen or persist or if there are any questions or concerns that arise at home. Medication response: [place]. Response to treatment: the patient's symptoms have markedly improved after treatment. Special discussion: I have referred the patient to see his PCP for further evaluation of high blood pressure. I discussed with the patient/guardian in detail that at this point there is no indication for admission to the hospital. It is understood, however, that if the symptoms persist or worsen the patient needs to return immediately for re-evaluation. Based on the history and exam findings, there is no indication for further emergent testing or inpatient evaluation. I discussed with the patient/guardian the need to see the primary care provider for further evaluation of the symptoms. ED course: Patient declines any symptoms while in ER. Patient denies chest pain, shortness of breath, nausea, vomiting, diarrhea. Patient reports she feels comfortable going home. Strict ER precautions given. All questions answered.. 11/29 12: Order name: CBC with Diff; Complete Time: 12:56 dr5 11/29 12:19 Order name: Troponin High Sensitivity; Complete Time: 13:09 dr5 11/29 12:19 Order name: BMP; Complete Time: 13: dr5 11/29 12:19 Order name: EKG; Complete Time: : dr5 11/29 12:19 Order name: EKG - Nurse/Tech; Complete Time: 12:39 dr5 EC:36 Rate is 71 beats/min. Rhythm is regular. QRS [place] is Normal. SC interval is normal at dr5 204 msec. QRS interval is normal at 68 msec. QT interval is normal at 400 msec. Clinical impression: Normal ECG and No evidence of ischemia. Administered Medications: 12:48 Drug: HYDROcodone-acetaminophen PO 5 mg-325 mg 1 tabs PO once Route: PO; ab3 14:00 Follow up: Response: No adverse reaction; Pain is decreased ab3 Disposition: 16:14 Co-signature as Attending Physician, Jas Brandon MD I reviewed the patient's care rn provided by the Advanced Practice Provider and agree with the diagnosis and treatment plan. Disposition Summary: 11/29/24 13:38 Discharge Ordered Notes: Location: Home dr5 Condition: Stable dr5 Diagnosis - Essential (primary) hypertension dr5 Followup: dr5 - With: Emergency Department - When: As needed - Reason: Worsening of condition Followup: dr5 - With: Private Physician - When: 1 - 2 days - Reason: Recheck today's complaints, Continuance of care, Re-evaluation by your physician Discharge Instructions: - Discharge Summary Sheet dr5 - Hypertension, Adult dr5 - Managing Your Hypertension dr5 Forms: - Medication Reconciliation Form dr5 - Patient Portal Instructions dr5 - Leadership Thank You Letter dr5 Signatures: Dispatcher [employer] Jas Carr MD MD rn Blaylock, Allie, RN RN ab3 Silvestre Blas, ADMITTING COORDINATOR-C ADMITTING COORDINATOR-Cdr5
--- NOTE | 2024-11-29 13:39 | ER ---
Nurse's Notes [facility] Name: Pretty Crook Age: 84 yrs Sex: Female : 1940 Arrival Date: 11/29/2024 Time: 12:02 Bed 18 Private MD: Diagnosis: Essential (primary) hypertension Presentation: 11/29 12:08 Chief complaint: Patient states: She was at [facility] for screening and ab3 her BP was high, prompting them to call an ambulance for reported BP 281/110. Per EMS, BP was 170/81 on arrival and stayed around that en route. Pt denies dizziness, visual dist, CP or SOB and has no actual complaints. Reports h/o htn, compliant with meds. BG 97 per EMS. Coronavirus screen: Vaccine status: Patient reports receiving the 2nd dose of the covid vaccine. Client denies travel out of the [place] in the last 14 days. At this time, the client does not indicate any symptoms associated with coronavirus-19. Ebola Screen: No symptoms or risks identified at this time. 12:08 Method Of Arrival: EMS: [facility] ab3 12:09 Initial Sepsis Screen: Does the patient meet any 2 criteria? No. Patient's initial ab3 sepsis screen is negative. Does the patient have a suspected source of infection? No. Patient's initial sepsis screen is negative. Risk Assessment: Do you want to hurt yourself or someone else? Patient reports no desire to harm self or others. Onset of symptoms was November 29, 2024. 12:09 Acuity: DUSTIN 3 ab3 Triage Assessment: 12:08 General: Appears in no apparent distress. comfortable, Behavior is calm, cooperative, ab3 appropriate for age. Pain: Complains of pain in base of the skull, chest, right arm, left arm and left leg Pain currently is 4 out of 10 on a pain scale. at worst was 7 out of 10 on a pain scale. Is continuous, chronic, Current management is with. Neuro: No deficits noted. Cardiovascular: No deficits noted. Parent/caregiver reports patient has had elevated bp. Respiratory: No deficits noted. Historical: - Allergies: 12:14 PENICILLINS; ab3 - PMHx: 12:14 Hypertension; RA; ab3 - PSHx: 12:14 Unable to Obtain; ab3 - Immunization history:: Adult Immunizations up to date, Client reports receiving the 2nd dose of the Covid vaccine. - Infectious Disease History:: Denies. - Social history:: Smoking status: Patient/guardian denies using tobacco, the patient reports quitting approximately 65 years ago, Patient/guardian denies using alcohol, street drugs, tobacco products. - Code Status:: Full code. Screenin:20 [facility] ED Fall Risk Assessment (Adult) History of falling in the last 3 months, ab3 including since admission No falls in past 3 months (0 pts) Confusion or Disorientation No (0 pts) Intoxicated or Sedated No (0 pts) Impaired Gait Yes (1 pt) Mobility Assist Device Used Yes (1 pt) Altered Elimination No (0 pt) Score/Fall Risk Level 0 - 2 = Low Risk Oriented to surroundings, Maintained a safe environment, Educated pt \T\ family on fall prevention, incl call for assistance when getting out of bed, Assessed \T\ reinforced patient's understanding of fall precautions. Abuse screen: Denies threats or abuse. Nutritional screening: No deficits noted. Tuberculosis screening: No symptoms or risk factors identified. Assessment: 12:19 General: See triage assessment by this RN . ab3 Vital Signs: 12:09 BP 174 / 79; Pulse 71; Resp 18; Temp 98; Pulse Ox 100% on R/A; Pain 4/10; ab3 12:15 BP 171 / 66; Pulse 74; Resp 17; Pulse Ox 99% on R/A; ab3 12:45 BP 146 / 75; Pulse 64; Resp 17; Pulse Ox 97% on R/A; Pain 7/10; ab3 13:00 BP 165 / 62; Pulse 68; Resp 16; Pulse Ox 99% on R/A; ab3 13:30 BP 149 / 76; Pulse 66; Resp 16; Pulse Ox 98% on R/A; ab3 14:00 BP 148 / 65; Pulse 60; Resp 17; Temp 98(O); Pulse Ox 99% on R/A; Pain 0/10; ab3 12:09 Pain Scale: Adult ab3 12:45 Pain Scale: Adult ab3 14:00 Pain Scale: Adult ab3 12:09 Chronic RA pain to legs, arms, neck; denies new pain ab3 Vitals: 12:15 Cardiac Rhythm Assessment Regular Sinus rhythm. ab3 [place] Coma Score: 12:15 Eye Response: spontaneous(4). Motor Response: obeys commands(6). Verbal Response: ab3 oriented(5). Total: 15. ED Course: 12:07 Patient arrived in ED. dr5 12:08 Silvestre Blas FNP-C is [facility]. dr5 12:08 Jas Brandon MD is Attending Physician. dr5 12:08 Coral Mosqueda, HUMA is Primary Nurse. ab3 12:08 Patient has correct armband on for positive identification. Allergy band placed. Bed in ab3 low position. Call light in reach. Side rails up X2. Provided Education on: Oriented to ER and call light-use. 12:08 Client placed on continuous cardiac and pulse oximetry monitoring. NIBP monitoring ab3 applied. pvc monitor on. Pulse ox on. NIBP on. Warm blanket given. Verbal reassurance given. Head of bed elevated. 12:13 Triage completed. ab3 12:18 Arm band placed on. ab3 12:34 Initial lab(s) drawn, by wv, sent to lab. Inserted saline lock: 20 gauge in right ab3 antecubital area, using aseptic technique. Blood collected. Flushed with 10 mL NS. 12:39 EKG done, by ED staff, reviewed by Silvestre SANDOVAL. em1 14:08 IV discontinued, intact, bleeding controlled, Pressure dressing applied. ab3 14:15 No provider procedures requiring assistance completed. ab3 Administered Medications: 12:48 Drug: HYDROcodone-acetaminophen PO 5 mg-325 mg 1 tabs PO once Route: PO; ab3 14:00 Follow up: Response: No adverse reaction; Pain is decreased ab3 Medication: 12:22 VIS not applicable for this client. ab3 Outcome: 13:38 Discharge ordered by . dr5 14:15 Discharged to home ambulatory, ab3 14:15 Condition: good 14:15 Discharge instructions given to patient, Instructed on discharge instructions, follow up and referral plans. Demonstrated understanding of instructions, follow-up care, 14:16 Patient left the ED. ab3 Signatures: Frandy Multani em1 Coral Mosqueda, HUMA RN ab3 Silvestre Blas FNP-C PRODUCTION PACKAGER-Cdr5
[2024-11-29 14:53] VITALS: BP 148/65; TEMP 98; O2SAT 99
== END 2024-11-29 14:16 | disposition home or self-care (01) ==
LOC: ER 12:02
DX: I10 Essential (primary) hypertension (principal)
CPT/HCPCS: 36415; 80048; 84484; 85025; 93005; 99285